=== PATIENT | male | born 1945 | race Caucasian/White ===

== ENCOUNTER → 2016-09-27 | Outpatient (CLI) | payer OTHER ==
[~2016-09-27] MED LIST: DABI150C PO; METO-596 PO; PRCSR30 PO; TELM80TA4 PO; TERA5CAP PO; ZCRT/40 PO
[2016-09-27 10:47] LABS: BASO % 0.4 %; BASO ABS # 0.02 K/uL (0-0.2); COMPLETE YES; EOS % 3.7 %; IG% 0.2 %; LYMPH % 22.3 %; LYMPH ABS # 1.26 K/uL (1.2-3.4); MEAN CORPUSCULAR HEMOGLOBIN 29.7 pg (25-34); MEAN CORPUSCULAR HGB CONC 34.2 g/dl (32-36); MEAN PLATELET VOLUME 9.6 fL (7.4-10.4); MONO % 8.3 %; NEUT % 65.1 %; PLATELET COUNT 191 K/uL (130-400); RED BLOOD COUNT 4.14 M/uL (4.7-6.1); WHITE BLOOD COUNT 5.64 K/uL (4.8-10.8)
[2016-09-27 10:57] LABS: ALT/SGPT 27 U/L (12-78); AST/SGOT 23 U/L (15-37); BLOOD UREA NITROGEN 20 mg/dl (7-18); BUN/CREATININE RATIO 17.1 (10-20); CALCIUM 8.8 mg/dl (8.5-10.1); CARBON DIOXIDE 29 mmol/L (21-32); CHLORIDE 99 mmol/L (98-107); GLUCOSE 136 mg/dl (70-99); POTASSIUM 3.9 mmol/L (3.5-5.1); SODIUM 137 mmol/L (136-145)
[2016-09-27 11:08] LABS: ALB/GLOB RATIO 1.3 (0.9-2); ALKALINE PHOSPHATASE 67 U/L (45-117); CHOLESTEROL 105 mg/dl (0-200); CHOLESTEROL/HDL RATIO 2.1; ESTIMATED AVERAGE GLUCOSE 117 mg/dl; HA1C FLAG Normal (Normal); HDL CHOLESTEROL 50 mg/dl; LDL CHOLESTEROL CALCULATED 25 mg/dl; TRIGLYCERIDES 151 mg/dl (0-150); VERY LOW DENSITY LIPOPROT CALC 30 mg/dl
== END | disposition home or self-care (01) ==
LOC: C.LAB1850 09:18
PROVIDERS: ATTEND Internal Medicine Geriatric Medicine
DX: I25.10 Atherosclerotic heart disease of native coronary artery without angina pectoris (principal); I10 Essential (primary) hypertension; E11.9 Type 2 diabetes mellitus without complications; E78.5 Hyperlipidemia, unspecified; D64.9 Anemia, unspecified; I49.5 Sick sinus syndrome; I48.2 Chronic atrial fibrillation

== ENCOUNTER → 2017-04-10 | Outpatient (CLI) | payer OTHER ==
[2017-04-10 10:22] LABS: BASO % 0.4 %; BASO ABS # 0.02 K/uL (0-0.2); COMPLETE YES; EOS % 3.1 %; HEMATOCRIT 36.4 % (42-52); LYMPH % 19.6 %; LYMPH ABS # 1.06 K/uL (1.2-3.4); MEAN CELL VOLUME 86.3 fL (80-100); MEAN CORPUSCULAR HEMOGLOBIN 28.2 pg (25-34); MEAN CORPUSCULAR HGB CONC 32.7 g/dl (32-36); MEAN PLATELET VOLUME 9.4 fL (7.4-10.4); NEUT % 67.9 %; PLATELET COUNT 210 K/uL (130-400); RED BLOOD COUNT 4.22 M/uL (4.7-6.1); WHITE BLOOD COUNT 5.42 K/uL (4.8-10.8)
[2017-04-10 11:03] LABS: BLOOD UREA NITROGEN 21 mg/dl (7-18); BUN/CREATININE RATIO 18.8 (10-20); CALCIUM 9.3 mg/dl (8.5-10.1); CARBON DIOXIDE 30 mmol/L (21-32); CHLORIDE 101 mmol/L (98-107); GLUCOSE 99 mg/dl (70-99); POTASSIUM 3.9 mmol/L (3.5-5.1); SODIUM 136 mmol/L (136-145)
[2017-04-10 11:08] LABS: FERRITIN 58.1 ng/ml (8.0-388.0)
[2017-04-10 11:36] LABS: ESTIMATED AVERAGE GLUCOSE 128 mg/dl; HA1C FLAG Normal (Normal)
--- NOTE | 2017-04-17 13:25 | CODING QUERY MEDICAL NECESSITY ---
SUPPORTING DIAGNOSIS NEEDED Dr. Bull, A supporting diagnosis is required for the test/procedure performed on this patient in order for us to be reimbursed by the patient's insurance. Please provide a supporting diagnosis for the following test/procedure listed below next to the test name along with your signature. *If there is no additional diagnosis for this patient that would support the following test/procedure please document that below next to the test/procedure. Test(s)/Procedure(s) that require a supporting diagnosis: * ([id number]) VITAMIN D ASSAY DIAGNOSIS: DATE OF SERVICE: 04/10/17 Provider Signature: Date: Thank you Luis F Caceres [facility] Information Management Once completed, please kindly fax back to [phone] For questions please call [phone]
== END | disposition home or self-care (01) ==
LOC: C.LAB1850 08:58
PROVIDERS: ATTEND Internal Medicine Geriatric Medicine
DX: I10 Essential (primary) hypertension (principal); E11.9 Type 2 diabetes mellitus without complications; D64.9 Anemia, unspecified; E53.8 Deficiency of other specified B group vitamins

== ENCOUNTER → 2017-09-26 | Outpatient (CLI) | payer OTHER ==
[~2017-09-26] MED LIST changes: -TELM80TA4 PO; +TELM80TA6 PO
[2017-09-26 12:13] LABS: BASO % 0.2 %; BASO ABS # 0.01 K/uL (0-0.2); EOS % 3.7 %; EOS ABS # 0.21 K/uL (0-0.5); HEMATOCRIT 36.1 % (42-52); HEMOGLOBIN 12.2 g/dL (14.0-18.0); IG# 0.01 K/uL (0.00-0.02); LYMPH % 24.7 %; LYMPH ABS # 1.41 K/uL (1.2-3.4); MEAN CELL VOLUME 86.8 fL (80-100); MEAN CORPUSCULAR HEMOGLOBIN 29.3 pg (25-34); MEAN CORPUSCULAR HGB CONC 33.8 g/dl (32-36); MEAN PLATELET VOLUME 9.7 fL (7.4-10.4); MONO % 9.1 %; MONO ABS # 0.52 K/uL (0.11-0.59); NEUT % 62.1 %; NEUT ABS # 3.54 K/uL (1.4-6.5); PLATELET COUNT 229 K/uL (130-400); RED CELL DISTRIBUTION WIDTH CV 13.3 % (11.5-14.5); RED CELL DISTRIBUTION WIDTH SD 42.4 fL (36.4-46.3)
[2017-09-26 12:29] LABS: HEMOGLOBIN A1C 6.1 % (4.5-5.6)
[2017-09-26 13:01] LABS: ALBUMIN 3.9 gm/dl (3.4-5.0); BLOOD UREA NITROGEN 26 mg/dl (7-18); CALCIUM 9.5 mg/dl (8.5-10.1); CARBON DIOXIDE 27 mmol/L (21-32); CREATININE 1.29 mg/dl (0.60-1.40); GLUCOSE 232 mg/dl (70-99); POTASSIUM 3.4 mmol/L (3.5-5.1); SODIUM 135 mmol/L (136-145)
[2017-09-26 13:12] LABS: ALKALINE PHOSPHATASE 82 U/L (45-117); ALT/SGPT 25 U/L (12-78); AST/SGOT 21 U/L (15-37); CHOLESTEROL 115 mg/dl (0-200); LDL CHOLESTEROL CALCULATED 34 mg/dl; TOTAL PROTEIN 7.6 gm/dl (6.4-8.2)
== END | disposition home or self-care (01) ==
LOC: C.LAB1850 11:25
PROVIDERS: ATTEND Internal Medicine Geriatric Medicine
DX: Z00.00 Encounter for general adult medical examination without abnormal findings (principal); I10 Essential (primary) hypertension; E11.9 Type 2 diabetes mellitus without complications; E78.5 Hyperlipidemia, unspecified; D64.9 Anemia, unspecified; Z79.01 Long term (current) use of anticoagulants; E53.8 Deficiency of other specified B group vitamins; I48.2 Chronic atrial fibrillation

== ENCOUNTER → 2018-04-26 | Outpatient (CLI) | payer OTHER ==
[2018-04-26 14:37] LABS: BASO % 0.4 %; BASO ABS # 0.02 K/uL (0-0.2); EOS % 1.6 %; EOS ABS # 0.09 K/uL (0-0.5); HEMATOCRIT 32.4 % (42-52); IG# 0.01 K/uL (0.00-0.02); LYMPH % 26.2 %; LYMPH ABS # 1.45 K/uL (1.2-3.4); MEAN CELL VOLUME 86.2 fL (80-100); MEAN CORPUSCULAR HEMOGLOBIN 29.3 pg (25-34); MEAN PLATELET VOLUME 9.8 fL (7.4-10.4); MONO % 9.6 %; MONO ABS # 0.53 K/uL (0.11-0.59); NEUT ABS # 3.43 K/uL (1.4-6.5); PLATELET COUNT 174 K/uL (130-400); RED CELL DISTRIBUTION WIDTH CV 13.5 % (11.5-14.5); RED CELL DISTRIBUTION WIDTH SD 42.6 fL (36.4-46.3); WHITE BLOOD COUNT 5.53 K/uL (4.8-10.8)
[2018-04-26 14:57] LABS: BLOOD UREA NITROGEN 21 mg/dl (7-18); CALCIUM 9.3 mg/dl (8.5-10.1); CARBON DIOXIDE 27 mmol/L (21-32); CREATININE 1.41 mg/dl (0.60-1.40); GLUCOSE 123 mg/dl (70-99); POTASSIUM 3.9 mmol/L (3.5-5.1); SODIUM 134 mmol/L (136-145)
== END | disposition home or self-care (01) ==
LOC: C.LAB1850 12:40
PROVIDERS: ATTEND Internal Medicine Geriatric Medicine
DX: I10 Essential (primary) hypertension (principal); E11.9 Type 2 diabetes mellitus without complications; D64.9 Anemia, unspecified

== ENCOUNTER 2023-11-28 20:57 | Observation (INO) ==
[2023-11-28 21:49] LABS: Basophils # (auto) 0.01 K/uL (0.00-0.20); Basophils % (auto) 0.1 %; Eosinophils # (auto) 0.02 K/uL (0.00-0.50); Eosinophils % (auto) 0.2 %; Hematocrit (blood only) 32.1 % (42.0-52.0); Hemoglobin 10.7 g/dl (14.0-18.0); Immature Granulocytes # (auto) 0.07 K/uL (0.01-0.20); Immature Granulocytes % (auto) 0.7 %; Lymphocytes # (auto) 1.14 K/uL (1.20-3.40); Lymphocytes % (auto) 11.7 %; Mean Corpuscular Hemoglobin 29.6 pg (25.0-34.0); Mean Corpuscular Hgb Conc 33.3 g/dL (32.0-36.0); Mean Corpuscular Volume 88.9 fL (80.0-100.0); Monocytes # (auto) 0.92 K/uL (0.11-0.59); Monocytes % (auto) 9.5 %; Neutrophils # (auto) 7.55 K/uL (1.40-6.50); Neutrophils % (auto) 77.8 %; Platelet Count 394 K/uL (130-400); RDW Coefficient of Variation 13.4 % (11.5-14.5); RDW Standard Deviation 44.1 fL (36.4-46.3); Red Blood Count 3.61 M/uL (4.70-6.10); White Blood Count 9.71 K/ul (4.8-10.8)
[2023-11-28 21:50] LABS: Albumin Level 3.9 gm/dl (3.4-5.0); Bilirubin,Total 0.9 mg/dl (0.2-1.0); Calcium 9.8 mg/dl (8.6-10.3); Potassium 3.3 mmol/L (3.5-5.1)
[2023-11-28 21:56] LABS: Albumin Globulin Ratio 0.8 (0.9-2); BUN Creatinine Ratio 23.1 (10-20); Creatinine Clr Calc Pharmacy 28.8 ml/min; Est GFR (African American) 34.6 ml/min; Est GFR (Non-African American) 29.8 ml/min; Globulin 4.9 gm/dl (2.5-4.0); Total Protein 8.8 gm/dl (6.0-8.3)
[2023-11-28 22:14] LABS: Influenza A virus by PCR Positive (Neg); Influenza B virus by PCR Negative (Neg); RSV by PCR Negative (Neg); SARS CoV2 RNA(COVID-19) Ceph NEGATIVE (Negative)
[2023-11-28] MEDS: SODIUM CHLORIDE 0.9% 500 ML IV ONE ×2 (22:20→23:18)
--- NOTE | 2023-11-28 22:23 | Emergency Department Note ---
Impression & Plan Pneumonia, Influenza A, Elevated troponin I level, Acute confusion, EZ (acute kidney injury) ED Provider Note NAME: CHARBEL SHEPARD AGE: 78 SEX: M : 1945 ARRIVES VIA: Walk-In INFORMANT: Patient, the patient's family ED PROVIDER(S): Giuseppe Orantes DO CHIEF COMPLAINT: Difficulty breathing HPI: The patient is a 78-year-old male who presented to the emergency department for an evaluation of difficulty breathing and cough. The patient's family states that he has been confused recently. The patient's significant other had similar symptoms a few weeks ago but she noticed that her symptoms resolved whereas her continued to have worsening symptoms. According to family he has been more confused and lethargic than usual. He has been having significant difficulty breathing especially with ambulation. There is been no hemoptysis. The patient has noticed no lower extremity swelling or leg pain. The patient was not seen by the family doctor prior to coming to the emergency department. ROS: See above HPI for pertinent positives & negatives. A total of 10 systems reviewed and were otherwise negative. PAST MEDICAL HISTORY: See Below PAST SURGICAL HISTORY: See Below FAMILY HISTORY: See Below SOCIAL HISTORY: See Below HOME MEDICATIONS: See Below ALLERGIES: See Below VITALS: See Below PHYSICAL EXAMINATION: GENERAL: Patient is awake alert in no acute distress patient is resting comfortably and showing no signs of anxiety EYES: The conjunctivae are clear. The pupils are round and reactive. EARS, NOSE, MOUTH AND THROAT: The nose is without any evidence of any deformity. NECK: The neck is nontender and supple. RESPIRATORY: Diminished breath sounds are noted both bases. There is mild tachypnea and conversational dyspnea. CARDIOVASCULAR: Tachycardic and irregular heart sounds were noted to auscultation. There is no definite murmur GASTROINTESTINAL: The abdomen is soft. Abdomen is nontender. MUSCULOSKELETAL/EXTREMITIES: There is no evidence of gross deformity full range of motion is noted in the hips and shoulders. SKIN: There is no obvious evidence of any rash. There is no significant pedal edema. NEUROLOGIC: Patient is awake alert and oriented x3. Strength was symmetric. MEDICAL DECISION MAKING: The patient is a 78-year-old male who presented to the emergency department for an evaluation of cough. The patient's had symptoms over the course of the last 2 weeks but he started getting worse this week. His family was concerned because he has been having decreased p.o. intake generalized weakness as well as some confusion. The patient's oxygen saturation was low but acceptable. He was positive for influenza in the emergency department but chest x-ray does appear to be consistent with a pulmonary infiltrate. I am concerned this may be a secondary infection after the pneumonia. The patient's oxygen saturation remained acceptable at rest but his blood pressure started to drop. He was treated with fluid boluses in the emergency department. He was also treated with IV antibiotics. I discussed the patient's laboratory and radiographic studies with him and his family members. I will also discussed this case with the on-call [facility]ist. Triage Nursing notes reviewed. Prior medical records reviewed Vital Signs: reviewed and remarkable for tachycardia. Differential diagnosis: Reactive airway disease, pneumonia, pneumothorax, COPD, CHF, infections, cardiac ischemia, pulmonary embolism, musculoskeletal, gastrointestinal, as well as other pathologies. ER treatment provided: See below Diagnostics interpreted by me: ECG: EKG was obtained in the emergency department. My interpretation is atrial fibrillation at 126 bpm. There were no obvious PVCs noted. Poor R wave progression was noted. This was compared to a tracing from May 08, 2023. No changes were noted Cardiac Monitoring: An order was placed for continuous cardiac monitoring. The monitor shows a rate of 113 bpm with atrial fibrillation. Laboratory studies: As stated above and show below. Imaging studies: See below. Radiographic imaging was reviewed by myself Consultation(s): I discussed this case with Dr. Lopez who is on-call for the [facility]. Past Med/Surg History Medical History Anemia Aortic valve sclerosis Arteriosclerotic coronary artery disease Dyslipidemia Elevated prostate specific antigen (PSA) 10/2022 Declines further evaluation, no further labs. Heart aneurysm Hypertension Permanent atrial fibrillation Sick sinus syndrome Vitamin B12 deficiency Surgical History Hx of CABG (~1989) Family History Unknown Coronary heart disease Sister Diabetes Brother Cardiac disorder Denies family history of Ovarian cancer Prostate cancer Breast cancer Lung cancer Colorectal cancer Social History Smoking Status: Former smoker Age Quit Using Tobacco: 43; Second Hand Exposure: No; Do You Dip or Chew Tobacco: No; Hx Alcohol Use: No Hx Substance Use: No Preferred Language: Korean Visual Impairment: Limited Hearing Ability: Normal marital status: Current Living Situation: Spouse current occupational status: retired How many Children do You have: 3 Feels Safe at Home: Yes Childhood Exposure to Second-Hand Smoke: No Diet: regular caffeine: Yes Dental Care, Regularly: No Physical Activity Frequency: Daily Seatbelt Use: always Sunscreen Use: No Assistive Devices: Glasses Allergies Allergies Allergy/AdvReac Type Severity Reaction Status Date / Time olmesartan [From Benicar] Allergy Severe TONGUE Verified 11/28/23 22:23 SWEKIANA ramipril Allergy Severe TONGUE Verified 11/28/23 22:23 RONALD valsartan [From Diovan] Allergy Severe TONGUE Verified 11/28/23 22:23 RONALD Home Meds Home Medications Medication Instructions Recorded Confirmed cyanocobalamin (vitamin B-12) 1,000 mcg PO DAILY #90 tabs 04/22/19 11/28/23 1,000 mcg tablet aspirin 81 mg tablet,delayed 81 mg PO DAILY 11/28/23 11/28/23 release multivitamin with minerals 1 tab PO DAILY 11/28/23 11/28/23 terazosin 5 mg capsule 5 mg PO DAILY 11/28/23 11/28/23 Previous Rx's Medication Instructions Recorded apixaban 5 mg tablet (Eliquis) 5 mg PO BID #180 tabs 01/08/23 hydrochlorothiazide 25 mg tablet 25 mg PO DAILY #90 tabs 03/28/23 atorvastatin 40 mg tablet 40 mg PO DAILY #90 tabs 04/25/23 metoprolol succinate 200 mg 200 mg PO DAILY #90 tabs 05/08/23 tablet,extended release 24 hr metformin 500 mg tablet 500 mg PO BID #180 tabs 09/03/23 losartan 100 mg tablet 100 mg PO DAILY #90 tabs 09/18/23 amlodipine 5 mg tablet 5 mg PO DAILY #90 tabs 11/14/23 Results & Data (ED) Vital Signs Vital Signs - 24 hr 11/28/23 21:05 11/28/23 21:32 11/28/23 21:37 Temperature 36.5 C Temperature Source Temporal Artery Scan Pulse Rate 135 H 113 H Pulse Rate [Brachial] 111 H Respiratory Rate 18 Respiratory Effort / Characteristics Non-Labored Spontaneous Respiratory Depth Normal Respiratory Pattern Blood Pressure 117/65 Blood Pressure [Right Arm] 131/73 Blood Pressure Mean 82 Blood Pressure Mean [Right Arm] 92 Blood Pressure Position [Right Arm] Semi-fowlers Pulse Oximetry 92 Oxygen Delivery Method Room Air Sepsis Recent Fever Within 48 Hours No Sepsis New/Unexplained Change in Mental Status No Sepsis Action Taken by Nursing No Action Required 11/28/23 23:00 Temperature Temperature Source Pulse Rate Pulse Rate [Brachial] 113 H Respiratory Rate 18 Respiratory Effort / Characteristics Non-Labored Spontaneous Respiratory Depth Normal Respiratory Pattern Regular Blood Pressure Blood Pressure [Right Arm] 115/68 Blood Pressure Mean Blood Pressure Mean [Right Arm] 83 Blood Pressure Position [Right Arm] Semi-fowlers Pulse Oximetry 94 Oxygen Delivery Method Room Air Sepsis Recent Fever Within 48 Hours Sepsis New/Unexplained Change in Mental Status Sepsis Action Taken by Intermediate Medications Current Medication List: was personally reviewed by me Laboratory Data Attestation: I reviewed the patient's lab results. 11/28/23 21:13 11/28/23 21:13 Lab Results 11/28/23 11/28/23 11/28/23 Range/Units 21:13 21:19 22:54 WBC 9.71 (4.8-10.8) K/ul RBC 3.61 L (4.70-6.10) M/uL Hgb 10.7 L (14.0-18.0) g/dl Hct 32.1 L (42.0-52.0) % MCV 88.9 (80.0-100.0) fL MCH 29.6 (25.0-34.0) pg MCHC 33.3 (32.0-36.0) g/dL RDW Std Deviation 44.1 (36.4-46.3) fL RDW Coeff of Abbey 13.4 (11.5-14.5) % Plt Count 394 (130-400) K/uL MPV 9.0 L (9.4-12.4) fL Immature Gran % (Auto) 0.7 % Neut % (Auto) 77.8 % Lymph % (Auto) 11.7 % Chambers % (Auto) 9.5 % Eos % (Auto) 0.2 % Baso % (Auto) 0.1 % Neut # (Auto) 7.55 H (1.40-6.50) K/uL Lymph # (Auto) 1.14 L (1.20-3.40) K/uL Chambers # (Auto) 0.92 H (0.11-0.59) K/uL Eos # (Auto) 0.02 (0.00-0.50) K/uL Baso # (Auto) 0.01 (0.00-0.20) K/uL Immature Gran # (Auto) 0.07 (0.01-0.20) K/uL VBG pH 7.43 H (7.36-7.41) VBG pCO2 38 (38-50) mmHg VBG pO2 23 mmHg VBG HCO3 25 mmol/L VBG O2 Saturation < 60.0 % VBG Base Excess 1.0 mEq/L Sodium 139 (136-145) mmol/L Potassium 3.3 L (3.5-5.1) mmol/L Chloride 102 (98-107) mmol/L Carbon Dioxide 23 (21-32) mmol/L Anion Gap 14 H (3-11) BUN 48 H (6-23) mg/dl Creatinine 2.08 H (0.6-1.4) mg/dl Est Cr Clr Drug Dosing 28.8 ml/min Est GFR ( Amer) 34.6 ml/min Est GFR (Non-Af Amer) 29.8 ml/min BUN/Creatinine Ratio 23.1 H (10-20) Glucose 149 H (70-99(Fasting)) mg/dl Lactate 2.5 H* (0.4-2.0) mmol/L Calcium 9.8 (8.6-10.3) mg/dl Magnesium 2.3 (1.7-2.4) mg/dl Total Bilirubin 0.9 (0.2-1.0) mg/dl AST 38 (13-39) U/L ALT 33 (7-52) U/L Alkaline Phosphatase 95 (34-104) U/L Troponin I High Sens 48.2 H (0-20) pg/ml C-Reactive Protein 21.12 H (0-0.5) mg/dl Total Protein 8.8 H (6.0-8.3) gm/dl Albumin 3.9 (3.4-5.0) gm/dl Globulin 4.9 H (2.5-4.0) gm/dl Albumin/Globulin Ratio 0.8 L (0.9-2) Procalcitonin 0.23 (0-0.5) ng/ml TSH 1.275 (0.300-4.500) uIu/ml SARS-CoV-2 (PCR) NEGATIVE (Negative) Influenza Type A (PCR) Positive A (Neg) Influenza Type B (PCR) Negative (Neg) RSV (RT-PCR) Negative (Neg) Administered Medications Discontinued Medications Sodium Chloride (Nss) 500 mls @ 999 mls/hr IV .Q31M ONE Stop: 11/28/23 22:44 Last Infusion: 11/28/23 22:58 Dose: Infused Documented By: Admin: 11/28/23 22:20 Dose: 999 mls/hr Documented By: KIRILL Ceftriaxone Sodium (Rocephin) 2,000 mg in 50 mls @ 100 mls/hr IV NOW STA Stop: 11/28/23 22:53 Last Admin: 11/28/23 23:15 Dose: 100 mls/hr Documented By: KIRILL Sodium Chloride (Nss) 500 mls @ 999 mls/hr IV .Q31M ONE Stop: 11/28/23 23:45 Last Admin: 11/28/23 23:18 Dose: 999 mls/hr Documented By: KIRILL Imaging Data Attestation: I personally reviewed and interpreted this imaging study as follows: My Impression: 1 view chest x-ray was obtained in the emergency department. My interpretation is postsurgical changes noted, cardiomegaly was noted, there is no free air, bilateral lower lobe infiltrates are noted right greater than left. This was compared to chest x-ray from February 11, 2007. The infiltrate is new compared to previous chest x-ray, final report pending. CT of the head was obtained in the emergency department. My interpretation is no intracranial hemorrhage or mass effect, final report below. Radiologist's Impression: Head CT 11/28/23 22:14 Exam(s): CT HEAD Without Contrast EXAM: CT Head Without Intravenous Contrast CLINICAL HISTORY: Reason for exam: AMS. TECHNIQUE: Axial computed tomography images of the head/brain without intravenous contrast. CTDI is 64.94 mGy and DLP is 1098.69 mGy-cm. Automated exposure control was utilized for the study. A dose lowering technique was utilized adhering to the principles of ALARA. COMPARISON: No relevant prior studies available. FINDINGS: No acute intracranial hemorrhage. No midline shift or mass effect. The territorial smith-white matter differentiation is maintained throughout. Age-related cerebral volume loss. Periventricular and subcortical white matter hypoattenuation, consistent with chronic microangiopathy. The visualized orbits appear grossly unremarkable. The calvarium is intact. The visualized paranasal sinuses and mastoid air cells are grossly clear. IMPRESSION: No acute intracranial hemorrhage, midline shift, or mass effect. Electronically signed by: Arash Levin MD 11/28/23 23:36 PM Discharge Plan Visit Data Chief Complaint: Illness Stated Complaint: NOT EATING/DRINKING, CONFUSION, DIZZY ED Provider: Giuseppe Orantes Discharge Problem: Pneumonia, Influenza A, Elevated troponin I level, Acute confusion, EZ (acute kidney injury) Patient Disposition: Being Evaluated by Hospitalist Forms Stand Alone Forms: My [facility] Prescriptions Prescriptions: No Action Eliquis 5 mg tablet 5 mg PO BID Qty: 180 3RF hydrochlorothiazide 25 mg tablet 25 mg PO DAILY Qty: 90 3RF atorvastatin 40 mg tablet 40 mg PO DAILY Qty: 90 3RF Rx Instructions: TAKE 1 TABLET BY MOUTH ONCE DAILY metformin 500 mg tablet 500 mg PO BID Qty: 180 3RF losartan 100 mg tablet 100 mg PO DAILY Qty: 90 3RF cyanocobalamin (vitamin B-12) 1,000 mcg tablet 1,000 mcg PO DAILY Qty: 90 metoprolol succinate 200 mg tablet extended release 24 hr 200 mg PO DAILY Qty: 90 3RF amlodipine 5 mg tablet 5 mg PO DAILY Qty: 90 3RF aspirin 81 mg Tablet,Delayed Release (Dr/Ec) 81 mg PO DAILY multivitamin with minerals Tablet 1 tab PO DAILY terazosin 5 mg capsule 5 mg PO DAILY Rx Instructions: TAKE 1 CAPSULE BY MOUTH DAILY Referrals Referrals: Demond Garcia DO [Primary Care Provider] - Discharge Problem: Pneumonia Qualifiers: Pneumonia type: due to unspecified organism Laterality: bilateral Lung location: lower lobe of lung Qualified Code(s): J18.9 - Pneumonia, unspecified organism
[2023-11-28 22:24] LABS: Magnesium 2.3 mg/dl (1.7-2.4)
[2023-11-28 22:44] LABS: C Reactive Protein 21.12 mg/dl (0-0.5)
[2023-11-28 22:51] LABS: Troponin I High Sensitivity 48.2 pg/ml (0-20)
[2023-11-28 23:00] LABS: Thyroid Stimulating Hormone 1.275 uIu/ml (0.300-4.500)
[2023-11-28 23:02] LABS: HCO3 VBG 25 mmol/L; Oxygen Saturation VBG < 60.0 %; PCO2 VBG 38 mmHg (38-50); PO2 VBG 23 mmHg; pH VBG 7.43 (7.36-7.41)
[2023-11-28] MEDS: cefTRIAXone SODIUM 2,000 MG/50 ML BAG IV STA (23:15)
--- NOTE | 2023-11-28 23:37 | CT Scan Report ---
Exam(s): CT HEAD Without Contrast EXAM: CT Head Without Intravenous Contrast CLINICAL HISTORY: Reason for exam: AMS. TECHNIQUE: Axial computed tomography images of the head/brain without intravenous contrast. CTDI is 64.94 mGy and DLP is 1098.69 mGy-cm. Automated exposure control was utilized for the study. A dose lowering technique was utilized adhering to the principles of ALARA. COMPARISON: No relevant prior studies available. FINDINGS: No acute intracranial hemorrhage. No midline shift or mass effect. The territorial smith-white matter differentiation is maintained throughout. Age-related cerebral volume loss. Periventricular and subcortical white matter hypoattenuation, consistent with chronic microangiopathy. The visualized orbits appear grossly unremarkable. The calvarium is intact. The visualized paranasal sinuses and mastoid air cells are grossly clear. IMPRESSION: No acute intracranial hemorrhage, midline shift, or mass effect. Electronically signed by: Arash Levin MD 11/28/23 23:36 PM
[2023-11-28] MEDS: SODIUM CHLORIDE 0.9% 1,000 ML IV ONE (23:58)
--- NOTE | 2023-11-29 00:45 | History & Physical Report ---
Date of Service November 29, 2023 Assessment & Plan (1) Influenza A: Plan: 78yo male with persistent cough productive for thick, yellow sputum as well as weakness, fatigue and decreased appetite. Patient found to be POSITIVE for influenza A. Suspect developing bacterial PNA as well. Symptoms have been ongoing x 2 weeks. Will not give Tamiflu -Admit to medical with telemetry -Maintain droplet precautions -Supportive care with Tylenol PRN, Robitussin -Gentle IVF with LR at 100ml/hr x 2L (2) Pneumonia: Plan: Suspect developing PNA given patient's symptoms - WBC count=9.7, baseline of appx 4. Elevated CRP. Procalcitonin is within normal limits -Follow cultures -Ceftriaxone and Azithromycin -Tylenol PRN -Albuterol PRN -Robitussin PRN -Flutter valve QID (3) Acute kidney injury superimposed on CKD: Plan: Patient with elevated BUN and Cr from baseline. Presently 48 and 2.08, respectively. Patient reports normal UOP -Gentle IVF with LR at 100mL/hr x 2L -Avoid nephrotoxic agents -Renal dosing where needed -Repeat chemistry in AM (4) Elevated troponin: Plan: Troponin elevated at 48.2. Patient denies chest pain. -Telemetry monitoring -Repeat with AM labs (5) Permanent atrial fibrillation: Plan: With elevated HR - presently 115bpm -Continue Metoprolol 200mg po daily -Continue Apixaban - will reduce dose to 2.5mg po BID for renal function (6) Diabetes mellitus type 2 in nonobese: Plan: Chronic. Well controlled on Metformin. Last [id number] on 11/14/23 -Hold Metformin -ISS -Goal blood sugar 110 - 140 (7) Hypertension: Plan: Chronic. Stable -Continue Metoprolol -Monitor (8) Dyslipidemia: Plan: Chronic. Stable -Continue Atorvastatin History of Present Illness Chief Complaint: productive cough, weakness, fatigue Primary Care Provider: Demond Garcia DO Kolby Brody is a 78yo male with history of CAD s/p CABG in 1989, HTN, HLP, AF and DM presenting with ongoing cough and worsening generalized weakness and fatigue. Patient developed URI symptoms 2 weeks ago with cough and congestion. His symptoms have been persistent for the last two weeks. He continues to cough, productive for thick white/yellow sputum, worsening weakness, fatigue, poor appetite and decreased PO intake. He does not have fever, no chest pain, palpitations, abdominal pain, nausea, vomiting or diarrhea. He denies edema, weight gain or urinary complaints. He has been taking Coricidin cough medicine at home with some relief. In the ER he is afebrile, HD stable, no respiratory distress ER Course: Ceftriaxone NSS x 2L Allergies Allergy/AdvReac Type Severity Reaction Status Date / Time olmesartan [From Benicar] Allergy Severe TONGUE Verified 11/28/23 22:23 SWELLS ramipril Allergy Severe TONGUE Verified 11/28/23 22:23 SWELLS valsartan [From Diovan] Allergy Severe TONGUE Verified 11/28/23 22:23 SWELLS Home Medications Medication Instructions Recorded Confirmed Type cyanocobalamin (vitamin B-12) 1,000 mcg PO DAILY #90 tabs 04/22/19 11/28/23 History 1,000 mcg tablet apixaban 5 mg tablet (Eliquis) 5 mg PO BID #180 tabs 01/08/23 11/28/23 Rx hydrochlorothiazide 25 mg tablet 25 mg PO DAILY #90 tabs 03/28/23 11/28/23 Rx atorvastatin 40 mg tablet 40 mg PO DAILY #90 tabs 04/25/23 11/28/23 Rx metoprolol succinate 200 mg 200 mg PO DAILY #90 tabs 05/08/23 11/28/23 Rx tablet,extended release 24 hr metformin 500 mg tablet 500 mg PO BID #180 tabs 09/03/23 11/28/23 Rx losartan 100 mg tablet 100 mg PO DAILY #90 tabs 09/18/23 11/28/23 Rx amlodipine 5 mg tablet 5 mg PO DAILY #90 tabs 11/14/23 11/28/23 Rx aspirin 81 mg tablet,delayed 81 mg PO DAILY 11/28/23 11/28/23 History release multivitamin with minerals 1 tab PO DAILY 11/28/23 11/28/23 History terazosin 5 mg capsule 5 mg PO DAILY 11/28/23 11/28/23 History Past Med/Surg History Medical History Anemia Aortic valve sclerosis Arteriosclerotic coronary artery disease Dyslipidemia Elevated prostate specific antigen (PSA) 10/2022 Declines further evaluation, no further labs. Heart aneurysm Hypertension Permanent atrial fibrillation Sick sinus syndrome Vitamin B12 deficiency Surgical History Hx of CABG (~1989) Family History Unknown Coronary heart disease Sister Diabetes Brother Cardiac disorder Denies family history of Ovarian cancer Prostate cancer Breast cancer Lung cancer Colorectal cancer Social History Smoking Status: Former smoker Age Quit Using Tobacco: 43; Second Hand Exposure: No; Do You Dip or Chew Tobacco: No; Hx Alcohol Use: No Hx Substance Use: No Preferred Language: Mac[place] Visual Impairment: Limited Hearing Ability: Normal marital status: Current Living Situation: Spouse current occupational status: retired How many Children do You have: 3 Feels Safe at Home: Yes Childhood Exposure to Second-Hand Smoke: No Diet: regular caffeine: Yes Dental Care, Regularly: No Physical Activity Frequency: Daily Seatbelt Use: always Sunscreen Use: No Assistive Devices: Glasses Review of Systems Review of Systems: All systems reviewed & are unremarkable except as noted in HPI & below Physical Exam Physical Exam: General: patient resting comfortably, NAD, non-toxic in appearance, AA&O x 4 Skin: warm, dry, intact, no rashes or lesions HEENT: NC/AT, PERRL, EOMI, anicteric sclera, conjunctiva without injection, external ear normal to inspection and nontender, nares patent, moist mucus membranes, dentition intact, no oropharyngeal lesions, neck supple, trachea midline, no LAD, no thyromegaly, no JVD Heart: +S1/S2, irregularly irregular, no m/r/g Lungs: equal air entry bilaterally, crackles in bilateral bases L > R, rhonchi with scattered end-expiratory wheezing Abd: +BS, soft, NT/ND, no masses/organomegaly/ascites Ext: warm, 2+ pulses in UE/LE bilaterally, no clubbing/cyanosis or edema Neuro: nonfocal, patient AA&O x 4, speech intact, no facial droop, moving all extremities on command with equal strength 5/5 Results & Data Results & Data Vital Signs (Past 12 Hours) Vital Signs Temp Pulse Pulse Resp BP BP Pulse Ox 11/28/23 23:59 111 H 21 118/58 L 92 11/28/23 23:00 113 H 18 115/68 94 11/28/23 21:37 111 H 131/73 11/28/23 21:32 113 H 11/28/23 21:05 36.5 C 135 H 18 117/65 92 O2 Del Method 11/28/23 23:59 Room Air 11/28/23 23:00 Room Air 11/28/23 21:37 11/28/23 21:32 11/28/23 21:05 Room Air Laboratory Results Laboratory Results WBC 9.71 K/ul (4.8-10.8) 11/28/23 21:13 RBC 3.61 M/uL (4.70-6.10) L 11/28/23 21:13 Hgb 10.7 g/dl (14.0-18.0) L 11/28/23 21:13 Hct 32.1 % (42.0-52.0) L 11/28/23 21:13 MCV 88.9 fL (80.0-100.0) 11/28/23 21:13 MCH 29.6 pg (25.0-34.0) 11/28/23 21:13 MCHC 33.3 g/dL (32.0-36.0) 11/28/23 21:13 RDW Std Deviation 44.1 fL (36.4-46.3) 11/28/23 21:13 RDW Coeff of [place] 13.4 % (11.5-14.5) 11/28/23 21:13 Plt Count 394 K/uL (130-400) 11/28/23 21:13 MPV 9.0 fL (9.4-12.4) L 11/28/23 21:13 Immature Gran % (Auto) 0.7 % 11/28/23 21:13 Neut % (Auto) 77.8 % 11/28/23 21:13 Lymph % (Auto) 11.7 % 11/28/23 21:13 [place] % (Auto) 9.5 % 11/28/23 21:13 Eos % (Auto) 0.2 % 11/28/23 21:13 Baso % (Auto) 0.1 % 11/28/23 21:13 Neut # (Auto) 7.55 K/uL (1.40-6.50) H 11/28/23 21:13 Lymph # (Auto) 1.14 K/uL (1.20-3.40) L 11/28/23 21:13 [place] # (Auto) 0.92 K/uL (0.11-0.59) H 11/28/23 21:13 Eos # (Auto) 0.02 K/uL (0.00-0.50) 11/28/23 21:13 Baso # (Auto) 0.01 K/uL (0.00-0.20) 11/28/23 21:13 Immature Gran # (Auto) 0.07 K/uL (0.01-0.20) 11/28/23 21:13 VBG pH 7.43 (7.36-7.41) H 11/28/23 22:54 VBG pCO2 38 mmHg (38-50) 11/28/23 22:54 VBG pO2 23 mmHg 11/28/23 22:54 VBG HCO3 25 mmol/L 11/28/23 22:54 VBG O2 Saturation < 60.0 % 11/28/23 22:54 VBG Base Excess 1.0 mEq/L 11/28/23 22:54 Sodium 139 mmol/L (136-145) 11/28/23 21:13 Potassium 3.3 mmol/L (3.5-5.1) L 11/28/23 21:13 Chloride 102 mmol/L (98-107) 11/28/23 21:13 Carbon Dioxide 23 mmol/L (21-32) 11/28/23 21:13 Anion Gap 14 (3-11) H 11/28/23 21:13 BUN 48 mg/dl (6-23) H 11/28/23 21:13 Creatinine 2.08 mg/dl (0.6-1.4) H 11/28/23 21:13 Est Cr Clr Drug Dosing 28.8 ml/min 11/28/23 21:13 Est GFR ( Amer) 34.6 ml/min 11/28/23 21:13 Est GFR (Non-Af Amer) 29.8 ml/min 11/28/23 21:13 BUN/Creatinine Ratio 23.1 (10-20) H 11/28/23 21:13 Glucose 149 mg/dl (70-99(Fasting)) H 11/28/23 21:13 Lactate 2.2 mmol/L (0.4-2.0) H* 11/29/23 00:35 Calcium 9.8 mg/dl (8.6-10.3) 11/28/23 21:13 Phosphorus 3.1 mg/dl (2.5-4.9) 11/28/23 22:54 Magnesium 2.3 mg/dl (1.7-2.4) 11/28/23 21:13 Total Bilirubin 0.9 mg/dl (0.2-1.0) 11/28/23 21:13 AST 38 U/L (13-39) 11/28/23 21:13 ALT 33 U/L (7-52) 11/28/23 21:13 Alkaline Phosphatase 95 U/L (34-104) 11/28/23 21:13 Troponin I High Sens 48.2 pg/ml (0-20) H 11/28/23 21:13 C-Reactive Protein 21.12 mg/dl (0-0.5) H 11/28/23 21:13 Total Protein 8.8 gm/dl (6.0-8.3) H 11/28/23 21:13 Albumin 3.9 gm/dl (3.4-5.0) 11/28/23 21:13 Globulin 4.9 gm/dl (2.5-4.0) H 11/28/23 21:13 Albumin/Globulin Ratio 0.8 (0.9-2) L 11/28/23 21:13 Procalcitonin 0.23 ng/ml (0-0.5) 11/28/23 21:13 TSH 1.275 uIu/ml (0.300-4.500) 11/28/23 21:13 SARS-CoV-2 (PCR) NEGATIVE (Negative) 11/28/23 21:19 Influenza Type A (PCR) Positive (Neg) A 11/28/23 21:19 Influenza Type B (PCR) Negative (Neg) 11/28/23 21:19 RSV (RT-PCR) Negative (Neg) 11/28/23 21:[address] 11/28/23 22:14 Exam(s): CT HEAD Without Contrast EXAM: CT Head Without Intravenous Contrast CLINICAL HISTORY: Reason for exam: AMS. TECHNIQUE: Axial computed tomography images of the head/brain without intravenous contrast. CTDI is 64.94 mGy and DLP is 1098.69 mGy-cm. Automated exposure control was utilized for the study. A dose lowering technique was utilized adhering to the principles of ALARA. COMPARISON: No relevant prior studies available. FINDINGS: No acute intracranial hemorrhage. No midline shift or mass effect. The territorial smith-white matter differentiation is maintained throughout. Age-related cerebral volume loss. Periventricular and subcortical white matter hypoattenuation, consistent with chronic microangiopathy. The visualized orbits appear grossly unremarkable. The calvarium is intact. The visualized paranasal sinuses and mastoid air cells are grossly clear. IMPRESSION: No acute intracranial hemorrhage, midline shift, or mass effect. Electronically signed by: Arash Levin MD 11/28/23 23:36 PM Diagnostic Findings CXR - per my interpretation - study shows s/p sternotomy, airspace disease RLL, LLL ECG Additional Comments: EKG with AF with RVR at 126bpm, no acute ischemic changes. Incomplete RBBB PG Care Time/CCT Total # of Minutes Spent Total Time Spent with Patient: Total time spent is greater than 50% in coordination of care (as documented) at patient's floor/unit and/or counseling patient: Coding Level of Care Code 46396 INT INP/OBS CARE 375MIN Diagnoses Influenza A J10.1 Pneumonia J18.9 Laterality: bilateral Lung location: lower lobe of lung Pneumonia type: due to unspecified organism Acute kidney injury superimposed on CKD N17.9; N18.9 Elevated troponin R79.89 Permanent atrial fibrillation I48.2 Diabetes mellitus type 2 in nonobese E11.9 Hypertension I10 Dyslipidemia E78.5 (2) Pneumonia Laterality: bilateral Lung location: lower lobe of lung Pneumonia type: due to unspecified organism Qualified Code(s): J18.9 - Pneumonia, unspecified organism
[2023-11-29] MEDS: APIXABAN 2.5 MG TAB PO STA (01:04)
[2023-11-29] MEDS ORDERED: ALBUTEROL 0.5% NEB SOLN 2.5 MG/0.5 ML VIAL NEB PRN (02:37)
[2023-11-29] MEDS ORDERED: DEXTROSE 50% 50 ML SYRINGE IV PRN (02:37)
[2023-11-29] MEDS ORDERED: ACETAMINOPHEN 325 MG TAB PO PRN (02:37)
[2023-11-29] MEDS ORDERED: GLUCOSE 40% GEL 15 GM TUBE PO PRN (02:37)
[2023-11-29] MEDS ORDERED: CARBOHYDRATES FOR HYPOGLYCEMIA PO PRN (02:37)
[2023-11-29] MEDS ORDERED: GLUCOSE 10 TAB/TUBE PO PRN (02:37)
[2023-11-29] MEDS ORDERED: GLUCAGON FOR INJ 1 MG VIAL SQ PRN (02:37)
[2023-11-29] MEDS: POTASSIUM CHLORIDE CRTAB 20 MEQ TABCR PO STA (02:58)
[2023-11-29] MEDS: LACTATED RINGER'S 1,000 ML IV SCH (02:58)
[2023-11-29] MEDS: AZITHROMYCIN 500 MG in DEXTROSE 5% 250 ML IV STA (02:58)
--- NOTE | 2023-11-29 07:00 | XRay Report ---
XR chest 1V portable HISTORY: 78 years-old Male weakness acute weakness COMPARISON: 02/11/2007 TECHNIQUE: AP view of the chest FINDINGS: Cardiomediastinal and hilar silhouettes are unchanged. Median sternotomy with CABG. Atherosclerosis o f the aorta. Chronic blunting of the lateral left costophrenic angle. Pulmonary vascular congestion. Mild patchy bibasilar predominant airspace opacities. The bones appear grossly intact. IMPRESSION: 1. Cardiomegaly with pulmonary vascular congestion. 2. Mild bibasilar patchy airspace opacities which are suspicious for pneumonia. Atelectasis could [place] ear similarly. ACT 112: Negative or not required by law. The above report was generated using voice recognition software. It may contain grammatical, syntax o r spelling errors. Electronically signed by: Scooter Centeno M.D. 11/29/2023 6:58 AM
[2023-11-29] MEDS: METOPROLOL SUCC 50MG EXT REL TAB PO SCH (07:45)
[2023-11-29] MEDS: APIXABAN 2.5 MG TAB PO SCH ×2 (07:45→22:01)
[2023-11-29] MEDS: guaiFENesin SUGAR FREE 100 MG/5 ML UDC PO PRN (07:45)
[2023-11-29] MEDS: ATORVASTATIN 40 MG TAB PO SCH (07:45)
[2023-11-29] MEDS: ASPIRIN 81 MG ECTAB PO SCH (07:45)
[2023-11-29] MEDS: TERAZOSIN HCL 5 MG CAP PO SCH (07:45)
[2023-11-29] MEDS: cefTRIAXone SODIUM 1,000 MG in DEXTROSE 5 % MINI-B 50 ML IV SCH (07:45)
[2023-11-29] MEDS ORDERED: HEPARIN SOD (PORCINE) 1000 UNIT/ML IV ONE (09:14)
[2023-11-29] MEDS ORDERED: STAT IV Infusion **Titration per Protocol STA (09:30)
[2023-11-29] MEDS: INSULIN ASPART PER UNIT CHARGE SC SCH (09:35)
[2023-11-29] MEDS: HEPARIN SODIUM/DEXTROSE 25,000 UNITS/500 ML BAG IV SCH (09:36)
[2023-11-29 10:04] LABS: Partial Thromboplastin Ratio 1.2; Partial Thromboplastin Time 33 Seconds (21-31)
[2023-11-29] MEDS: Heparin IV Adult Wt-Based Standard w/ INITIAL Bolus Protocol IV STA (10:05)
[2023-11-29] MEDS: SODIUM CHLORIDE 0.9% 500 ML IV SCH (10:28)
[2023-11-29] MEDS: dilTIAZem HCl 5 MG/ML 5 ML VIAL IV STA (10:41)
[2023-11-29] MEDS: AZITHROMYCIN 250 MG in DEXTROSE 5% 250 ML IV SCH (10:41)
[2023-11-29] MEDS: dilTIAZem HCL 125 MG in DEXTROSE 5% 100 ML IV SCH (10:41)
--- NOTE | 2023-11-29 11:33 | Cardiology Consultation ---
Date of Consultation November 29, 2023 Assessment & Plan (1) Elevated troponin: (2) CAD (coronary artery disease): (3) Hx of CABG: (4) Cardiomyopathy: (5) Permanent atrial fibrillation: (6) Hypertension: (7) Dyslipidemia: (8) Influenza A: Plan ASSESSMENT/PLAN: 1. Elevated troponin: He did not present with acute coronary syndrome. Troponin likely elevated due to demand ischemia with known underlying CAD and presenting with influenza A and possible pneumonia. No angina. No indication for urgent cardiac catheterization. 2. Cardiomyopathy: LV systolic function is now moderately reduced in the setting of elevated heart rate and influenza A. No angina. Appears euvolemic. Continue metoprolol succinate. ARB currently held presumably due to worsened renal function but would monitor closely and resume losartan. Does not meet criteria for ICD for primary prevention. Recommend repeating echo in the outpatient setting to see if any improvement once recovered from viral infection. If not, could consider further evaluation if deemed appropriate. 3. Atrial fibrillation: Permanent. Heart rates have been elevated. Will resume home dose of metoprolol succinate 200 mg. Elevated heart rates may be related to the fact that he is currently ill with influenza A and possible pneumonia. Would maintain current regimen for now. Would try to avoid diltiazem given reduced LV systolic function. If necessary, could use digoxin cautiously in the setting of impaired renal function but for now, continue beta- claude. Continue anticoagulation for stroke risk reduction. 4. CAD s/p CABG x 2: No angina. Continue beta-claude. Continue high intensity statin therapy. 5. Hypertension: Blood pressure currently well-controlled. Was transiently hypotensive earlier this morning. 6. Dyslipidemia: Continue high intensity statin therapy. 7. Influenza A/pneumonia: As per primary service. 8. Disposition: Please call with further questions or concerns. On discharge, continue to follow with primary transportation engineering technician, Dr. Ocasio. Patient care communicated with primary hospitalist, Dr. Sorenson. Thank you for allowing me to participate in the care of your patient. Please call for any other questions or concerns. Sincerely, Oscar Savage M.D. History of Present Illness Reason for Consultation: Elevated troponin Requesting Physician: Teresa Sorenson MD Attending Physician: Teresa Sorenson MD History of Present Illness Mr. Brody is a very pleasant 78-year-old gentleman with a history significant for multivessel CAD s/p CABG x 2 ([facility] 1989), permanent atrial fibrillation (dx 2011), CKD, hypertension, and dyslipidemia. His primary transportation engineering technician is Dr. Ocasio. He was admitted on 11/29/2023 with influenza A infection. He has been experiencing upper respiratory symptoms for the past 2 weeks. His had the flu recently but has since recovered. He has had increased cough with thick yellow/white sputum and worsening weakness and fatigue with poor appetite. He denies documented fever. He denies chest pain, syncope, near syncope, palpitations, edema. He has had some shortness of breath with his current URI but prior to that, denies shortness of breath. He does not exercise but remains active and has not been experiencing exertional dyspnea or chest discomfort prior to his illness. In regards to his CAD, he has not had a cardiac catheterization since his CABG that he can recall. He has had the following studies/procedures: 1. CABG x 2 [facility] 1989. 2. Echo 03/29/2016: Normal LV size. EF 60 to 65%. Hypokinetic inferior base. Moderate left atrial dilation. Sclerotic aortic valve. 3. Echo 05/01/2023: LVEF 45 to 50%. Severe left and moderate right atrial dilation. Sclerotic aortic valve. Mild MR. 4. Echo 11/29/2023: Top normal LV size. EF 35 to 40%. Severe hypokinesis of the septum, anteroseptum, and apex. Akinesis of the basal inferior wall. Severe left atrial dilation. Sclerotic aortic valve. Mild MR. Moderate TR. RVSP 47. Review of systems: As above. Review of systems otherwise negative/unremarkable. Family history: Positive for CAD. Social history: Quit smoking in 1989. No alcohol or drug abuse. Lives at home with his and daughter. 3 children (2 sons and 1 daughter). His , daughter, and granddaughter were present at the bedside. Allergies Allergy/AdvReac Type Severity Reaction Status Date / Time olmesartan [From Benicar] Allergy Severe TONGUE Verified 11/28/23 22:23 SWELLS ramipril Allergy Severe TONGUE Verified 11/28/23 22:23 SWELLS valsartan [From Diovan] Allergy Severe TONGUE Verified 11/28/23 22:23 SWELLS Home Medications Medication Instructions Recorded Confirmed Type cyanocobalamin (vitamin B-12) 1,000 mcg PO DAILY #90 tabs 04/22/19 11/28/23 History 1,000 mcg tablet apixaban 5 mg tablet (Eliquis) 5 mg PO BID #180 tabs 01/08/23 11/28/23 Rx hydrochlorothiazide 25 mg tablet 25 mg PO DAILY #90 tabs 03/28/23 11/28/23 Rx atorvastatin 40 mg tablet 40 mg PO DAILY #90 tabs 04/25/23 11/28/23 Rx metoprolol succinate 200 mg 200 mg PO DAILY #90 tabs 05/08/23 11/28/23 Rx tablet,extended release 24 hr metformin 500 mg tablet 500 mg PO BID #180 tabs 09/03/23 11/28/23 Rx losartan 100 mg tablet 100 mg PO DAILY #90 tabs 09/18/23 11/28/23 Rx amlodipine 5 mg tablet 5 mg PO DAILY #90 tabs 11/14/23 11/28/23 Rx aspirin 81 mg tablet,delayed 81 mg PO DAILY 11/28/23 11/28/23 History release multivitamin with minerals 1 tab PO DAILY 11/28/23 11/28/23 History terazosin 5 mg capsule 5 mg PO DAILY 11/28/23 11/28/23 History Patient History Medical History (Updated 11/29/23 @ 14:52 by Shawn Savage MD) Anemia Aortic valve sclerosis Arteriosclerotic coronary artery disease Dyslipidemia Elevated prostate specific antigen (PSA) 10/2022 Declines further evaluation, no further labs. Heart aneurysm Hypertension Permanent atrial fibrillation Sick sinus syndrome Vitamin B12 deficiency Surgical History (Updated 11/29/23 @ 14:52 by Shawn Savage MD) Hx of CABG (~1989) Family History Unknown Coronary heart disease Sister Diabetes Brother Cardiac disorder Denies family history of Ovarian cancer Prostate cancer Breast cancer Lung cancer Colorectal cancer Social History Smoking Status: Former smoker Age Quit Using Tobacco: 43; Second Hand Exposure: No; Do You Dip or Chew Tobacco: No; Hx Alcohol Use: No Hx Substance Use: No Preferred Language: Lithuanian Visual Impairment: Limited Hearing Ability: Normal Rater Associate Required: No Beliefs That Will Affect Care: None marital status: Current Living Situation: Spouse and Family current occupational status: retired How many Children do You have: 3 Other Information That Helps Us Care for You: No Feels Safe at Home: Yes Safety Concerns: Feels Safe At This Time Childhood Exposure to Second-Hand Smoke: No Diet: regular caffeine: Yes Dental Care, Regularly: No Physical Activity Frequency: Daily Seatbelt Use: always Sunscreen Use: No Assistive Devices: Glasses Physical Exam Physical Exam: Gen.: No acute distress. Alert. HEENT: Anicteric sclera. Neck: No JVD. Cardiac: No ventricular heave. Irregularly irregular. Normal S1-S2. 2/6 systolic murmur best heard at the apex. Pulmonary: Coarse sounds at the right lung base, otherwise clear to auscultation bilaterally. Abdomen: Soft, nontender, nondistended, with normoactive bowel sounds. No bruits noted. Extremities: 2+ radial pulses bilaterally. 2+ posterior tibialis pulses bilaterally. No edema or cyanosis. Psychiatric: Affect appears appropriate. Results & Data Vital Signs (Past 12 Hours) Vital Signs Temp Pulse Pulse Resp BP BP Pulse Ox 11/29/23 11:03 101 H 18 99/57 L 92 11/29/23 10:24 95 H 20 95/64 L 98 11/29/23 09:56 110 H 22 95/73 L 96 11/29/23 07:30 36.5 C 121 H 26 H 114/60 94 11/29/23 07:30 11/29/23 07:25 115 H 11/29/23 05:00 99 H 26 H 111/73 89 L 11/29/23 04:00 103 H 24 118/65 89 L 11/29/23 03:00 115 H 29 H 119/76 92 11/29/23 01:28 110 H 11/29/23 01:00 105 H 20 112/70 92 11/28/23 23:59 111 H 21 118/58 L 92 O2 Del Method 11/29/23 11:03 11/29/23 10:24 11/29/23 09:56 11/29/23 07:30 Room Air 11/29/23 07:30 Room Air 11/29/23 07:25 11/29/23 05:00 11/29/23 04:00 11/29/23 03:00 11/29/23 01:28 11/29/23 01:00 Room Air 11/28/23 23:59 Room Air Laboratory Results Laboratory Results - last 24 hr 11/28/23 11/28/23 11/28/23 21:13 21:19 22:54 WBC 9.71 RBC 3.61 L Hgb 10.7 L Hct 32.1 L MCV 88.9 MCH 29.6 MCHC 33.3 RDW Std Deviation 44.1 RDW Coeff of Abbey 13.4 Plt Count 394 MPV 9.0 L Immature Gran % (Auto) 0.7 Neut % (Auto) 77.8 Lymph % (Auto) 11.7 [place] % (Auto) 9.5 Eos % (Auto) 0.2 Baso % (Auto) 0.1 Neut # (Auto) 7.55 H Lymph # (Auto) 1.14 L [place] # (Auto) 0.92 H Eos # (Auto) 0.02 Baso # (Auto) 0.01 Immature Gran # (Auto) 0.07 APTT PTT Ratio Heparin Anti-Xa, LM Wt VBG pH 7.43 H VBG pCO2 38 VBG pO2 23 VBG HCO3 25 VBG O2 Saturation < 60.0 VBG Base Excess 1.0 Sodium 139 Potassium 3.3 L Chloride 102 Carbon Dioxide 23 Anion Gap 14 H BUN 48 H Creatinine 2.08 H Est Cr Clr Drug Dosing 28.8 Est GFR ( Amer) 34.6 Est GFR (Non-Af Amer) 29.8 BUN/Creatinine Ratio 23.1 H Glucose 149 H POC Glucose Lactate 2.5 H* Calcium 9.8 Phosphorus 3.1 Magnesium 2.3 Total Bilirubin 0.9 AST 38 ALT 33 Alkaline Phosphatase 95 Troponin I High Sens 48.2 H C-Reactive Protein 21.12 H Total Protein 8.8 H Albumin 3.9 Globulin 4.9 H Albumin/Globulin Ratio 0.8 L Procalcitonin 0.23 TSH 1.275 SARS-CoV-2 (PCR) NEGATIVE Influenza Type A (PCR) Positive A Influenza Type B (PCR) Negative RSV (RT-PCR) Negative 11/29/23 11/29/23 11/29/23 00:35 06:33 07:37 WBC RBC Hgb Hct MCV MCH MCHC RDW Std Deviation RDW Coeff of [place] Plt Count MPV Immature Gran % (Auto) Neut % (Auto) Lymph % (Auto) [place] % (Auto) Eos % (Auto) Baso % (Auto) Neut # (Auto) Lymph # (Auto) [place] # (Auto) Eos # (Auto) Baso # (Auto) Immature Gran # (Auto) APTT PTT Ratio Heparin Anti-Xa, LM Wt VBG pH VBG pCO2 VBG pO2 VBG HCO3 VBG O2 Saturation VBG Base Excess Sodium Potassium Chloride Carbon Dioxide Anion Gap BUN Creatinine Est Cr Clr Drug Dosing Est GFR ( Amer) Est GFR (Non-Af Amer) BUN/Creatinine Ratio Glucose POC Glucose 160 H Lactate 2.2 H* Calcium Phosphorus Magnesium Total Bilirubin AST ALT Alkaline Phosphatase Troponin I High Sens 209.7 H* D C-Reactive Protein Total Protein Albumin Globulin Albumin/Globulin Ratio Procalcitonin TSH SARS-CoV-2 (PCR) Influenza Type A (PCR) Influenza Type B (PCR) RSV (RT-PCR) 11/29/23 11/29/23 09:11 11:22 WBC RBC Hgb Hct MCV MCH MCHC RDW Std Deviation RDW Coeff of [place] Plt Count MPV Immature Gran % (Auto) Neut % (Auto) Lymph % (Auto) [place] % (Auto) Eos % (Auto) Baso % (Auto) Neut # (Auto) Lymph # (Auto) [place] # (Auto) Eos # (Auto) Baso # (Auto) Immature Gran # (Auto) APTT 33 H PTT Ratio 1.2 Heparin Anti-Xa, LM Wt Cancelled VBG pH VBG pCO2 VBG pO2 VBG HCO3 VBG O2 Saturation VBG Base Excess Sodium Potassium Chloride Carbon Dioxide Anion Gap BUN Creatinine Est Cr Clr Drug Dosing Est GFR ( Amer) Est GFR (Non-Af Amer) BUN/Creatinine Ratio Glucose POC Glucose 137 H Lactate Calcium Phosphorus Magnesium Total Bilirubin AST ALT Alkaline Phosphatase Troponin I High Sens C-Reactive Protein Total Protein Albumin Globulin Albumin/Globulin Ratio Procalcitonin TSH SARS-CoV-2 (PCR) Influenza Type A (PCR) Influenza Type B (PCR) RSV (RT-PCR) Diagnostic Findings Chest x-ray personally reviewed from 11/28/2023: Sternotomy wires noted. Small left pleural effusion. Mild patchy bibasilar airspace opacities per radiology, suspicious for pneumonia. Telemetry personally reviewed: A-fib with elevated heart rates at times. No significant pause. ECG personally reviewed 11/28/2023: A-fib with RVR 126 bpm. Incomplete RBBB. Possible septal infarct. Lateral T wave inversion. Labs reviewed from 11/28/2023, demonstrating stable anemia, abnormal renal function, slightly above baseline, mild hypokalemia, normal TSH, normal transaminase levels. Echo report reviewed as noted above in HPI. Head CT 11/28/2023: No acute intracranial hemorrhage. Medications Administered Current Inpatient Medications Acetaminophen (Acetaminophen 325 Mg Tab) 650 mg PO Q4H PRN PRN Reason: Pain or Fever Stop: 12/29/23 02:36 Albuterol (Albuterol 0.5% Neb Soln 2.5 Mg/0.5 Ml Vial) 2.5 mg NEB Q2H PRN; Protocol PRN Reason: SOB/Wheeze Stop: 12/29/23 02:36 Aspirin (Aspirin 81 Mg Ectab) 81 mg PO DAILY AMANDEEP Stop: 12/29/23 08:59 Last Admin: 11/29/23 07:45 Dose: 81 mg Atorvastatin Calcium (Atorvastatin 40 Mg Tab) 40 mg PO DAILY AMANDEEP Stop: 12/29/23 08:59 Last Admin: 11/29/23 07:45 Dose: 40 mg Dextrose (Dextrose 50% 50 Ml Syringe) 25 - 50 ml IV UD PRN; Protocol PRN Reason: Hypoglycemia Protocol Stop: 12/29/23 02:36 Glucagon (Glucagon For Inj 1 Mg Vial) 1 mg SQ UD PRN; Protocol PRN Reason: Hypoglycemia Protocol Stop: 12/29/23 02:36 Glucose (Glucose 10 Tab/Tube) 4 - 8 tab PO UD PRN; Protocol PRN Reason: Hypoglycemia Treatment Stop: 12/29/23 02:36 Glucose (Glucose 40% Gel 15 Gm Tube) 15 - 30 gm PO UD PRN; Protocol PRN Reason: Hypoglycemia Protocol Stop: 12/29/23 02:36 Guaifenesin (Guaifenesin Sugar Free 100 Mg/5 Ml Udc) 100 mg PO Q6H PRN PRN Reason: Cough Stop: 12/29/23 02:36 Last Admin: 11/29/23 07:45 Dose: 100 mg Ceftriaxone Sodium 1,000 mg/ (Dextrose) 50 mls @ 100 mls/hr IV Q24H AMANDEEP; Protocol Stop: 12/06/23 08:59 Last Infusion: 11/29/23 08:15 Dose: Infused Azithromycin 250 mg/ Dextrose 252.5 mls @ 125 mls/hr IV Q24H [facility] Stop: 12/06/23 09:59 Last Infusion: 11/29/23 12:45 Dose: Infused Heparin Sodium/Dextrose (Heparin Sodium/Dextrose) 25,000 units in 500 mls @ 26 mls/hr IV .[id number] [facility]; Protocol Stop: 12/29/23 09:14 Last Admin: 11/29/23 09:36 Dose: 1,300 units/hr, 26 mls/hr Insulin Aspart (Insulin Aspart Per Unit Charge) 0 units SC ACHS [facility] Stop: 12/29/23 07:29 Last Admin: 11/29/23 11:23 Dose: Not Given Miscellaneous (Carbohydrates For Hypoglycemia ) 15 - 30 gm PO UD PRN PRN Reason: Hypoglycemia Protocol Stop: 12/29/23 02:36 Terazosin HCl (Terazosin Hcl 5 Mg Cap) 5 mg PO DAILY [facility] Stop: 12/29/23 08:59 Last Admin: 11/29/23 07:45 Dose: 5 mg PG Care Time/CCT Total # of Minutes Spent Total Time Spent with Patient: Total time spent is greater than 50% in coordination of care (as documented) at patient's floor/unit and/or counseling patient: Coding Level of Care Code 88034 INT INP/OBS CARE 3/75MIN Diagnoses Elevated troponin R79.89 CAD (coronary artery disease) I25.10 Hx of CABG Z95.1 Cardiomyopathy I42.9 Permanent atrial fibrillation I48.2 Hypertension I10 Dyslipidemia E78.5 Influenza A J10.1
--- NOTE | 2023-11-29 12:42 | XCELERA ---
[id number]
[2023-11-29 17:09] LABS: ANTI-Xa, UFH(UnfractionatedHep > 1.50 IU/ml (0.3-0.7)
--- NOTE | 2023-11-29 18:29 | Hospitalist Progress Note ---
Date of Service November 29, 2023 Assessment & Plan (1) Influenza A: Plan: 78yo male with persistent cough productive for thick, yellow sputum as well as weakness, fatigue and decreased appetite. Patient found to be POSITIVE for influenza A. Suspect developing bacterial PNA as well. Symptoms have been ongoing x 2 weeks. Will not give Tamiflu -Admit to medical with telemetry -Maintain droplet precautions -Supportive care with Tylenol PRN, Robitussin (2) Pneumonia: Plan: Suspect developing PNA given patient's symptoms - WBC count=9.7, baseline of appx 4. Elevated CRP. Procalcitonin is within normal limits -Follow cultures -Ceftriaxone and Azithromycin -Tylenol PRN -Albuterol PRN -Robitussin PRN -Flutter valve QID (3) Acute kidney injury superimposed on CKD: Plan: Patient with elevated BUN and Cr from baseline. Presently 48 and 2.08, respectively. Patient reports normal UOP -Gentle IVF with LR at 100mL/hr x 2L -Avoid nephrotoxic agents -Renal dosing where needed -Repeat chemistry in AM (4) Elevated troponin: Plan: Troponin elevated at 48.2, repeat trop 200 -Telemetry monitoring -Repeat with AM labs IV Heparin ECHO EF 35-40 % ischemic cardiomyopathy ? needs cardiac work up as outpatient continue current treatment (5) Permanent atrial fibrillation: Plan: With elevated HR - presently 115bpm -Continue Metoprolol 200mg po daily -Continue Apixaban - will reduce dose to 2.5mg po BID for renal function (6) Diabetes mellitus type 2 in nonobese: Plan: Chronic. Well controlled on Metformin. Last [id number]=8.9 on 11/14/23 -Hold Metformin -ISS -Goal blood sugar 110 - 140 (7) Hypertension: Plan: Chronic. Stable -Continue Metoprolol -Monitor (8) Dyslipidemia: Plan: Chronic. Stable -Continue Atorvastatin Admission and Anticipated Discharge Date Admission Date: November 29, 2023 Subjective reports feeling better, less SOB, no fever, no chills, denies CP, trop is elevated in 200s Review of Systems Review of Systems: All systems reviewed & are unremarkable except as noted in Subjective Physical Exam Physical Exam: head atraumatic, normocephalic neck supple , no JVD, chest decreased breath sounds b/l heart irregularly irregular abdomen soft, nt, nd, BS present extremities no clubbing, no cyanosis neuro alert, awake, oriented times 3 Results & Data Results & Data Vital Signs (Past 12 Hours) Vital Signs Temp Pulse Pulse Resp BP BP Pulse Ox 11/29/23 14:46 89 20 114/82 96 11/29/23 12:00 108 H 20 110/60 95 11/29/23 11:03 101 H 18 99/57 L 92 11/29/23 10:24 95 H 20 95/64 L 98 11/29/23 09:56 110 H 22 95/73 L 96 11/29/23 07:30 36.5 C 121 H 26 H 114/60 94 11/29/23 07:30 11/29/23 07:25 115 H O2 Del Method 11/29/23 14:46 11/29/23 12:00 11/29/23 11:03 11/29/23 10:24 11/29/23 09:56 11/29/23 07:30 Room Air 11/29/23 07:30 Room Air 11/29/23 07:25 PG Care Time/CCT Total # of Minutes Spent Total Time Spent with Patient: Total time spent is greater than 50% in coordination of care (as documented) at patient's floor/unit and/or counseling patient: Coding Level of Care Code 82233 SUB INP/OBS CARE 235MIN Diagnoses Influenza A J10.1 Pneumonia J18.9 Laterality: bilateral Lung location: lower lobe of lung Pneumonia type: due to unspecified organism Acute kidney injury superimposed on CKD N17.9; N18.9 Elevated troponin R79.89 Permanent atrial fibrillation I48.2 Diabetes mellitus type 2 in nonobese E11.9 Hypertension I10 Dyslipidemia E78.5 (2) Pneumonia Laterality: bilateral Lung location: lower lobe of lung Pneumonia type: due to unspecified organism Qualified Code(s): J18.9 - Pneumonia, unspecified organism
[2023-11-29 18:37] LABS: ANTI-Xa, UFH(UnfractionatedHep > 1.50 IU/ml (0.3-0.7)
[2023-11-29 19:59] LABS: ANTI-Xa, UFH(UnfractionatedHep > 1.50 IU/ml (0.3-0.7)
[2023-11-29 20:55] LABS: ANTI-Xa, UFH(UnfractionatedHep > 1.50 IU/ml (0.3-0.7)
[2023-11-30 07:55] LABS: Basophils # (auto) 0.01 K/uL (0.00-0.20); Basophils % (auto) 0.1 %; Eosinophils # (auto) 0.04 K/uL (0.00-0.50); Eosinophils % (auto) 0.6 %; Hematocrit (blood only) 28.6 % (42.0-52.0); Hemoglobin 9.4 g/dl (14.0-18.0); Immature Granulocytes # (auto) 0.05 K/uL (0.01-0.20); Immature Granulocytes % (auto) 0.7 %; Lymphocytes # (auto) 0.83 K/uL (1.20-3.40); Lymphocytes % (auto) 12.2 %; Mean Corpuscular Hemoglobin 29.3 pg (25.0-34.0); Mean Corpuscular Hgb Conc 32.9 g/dL (32.0-36.0); Mean Corpuscular Volume 89.1 fL (80.0-100.0); Mean Platelet Volume 9.1 fL (9.4-12.4); Monocytes # (auto) 0.74 K/uL (0.11-0.59); Monocytes % (auto) 10.9 %; Neutrophils # (auto) 5.12 K/uL (1.40-6.50); Neutrophils % (auto) 75.5 %; Platelet Count 338 K/uL (130-400); RDW Coefficient of Variation 13.4 % (11.5-14.5); RDW Standard Deviation 44.3 fL (36.4-46.3); Red Blood Count 3.21 M/uL (4.70-6.10); White Blood Count 6.79 K/ul (4.8-10.8)
[2023-11-30 08:13] LABS: BUN Creatinine Ratio 20.9 (10-20); Creatinine Clr Calc Pharmacy 39.1 ml/min; Est GFR (African American) 50.1 ml/min; Est GFR (Non-African American) 43.2 ml/min; Magnesium 2.1 mg/dl (1.7-2.4); Potassium 4.1 mmol/L (3.5-5.1)
[2023-11-30] MEDS: METOPROLOL SUCC 50MG EXT REL TAB PO SCH (09:39)
--- NOTE | 2023-11-30 12:01 | Discharge Summary ---
Date of Service November 30, 2023 Admission HPI Per Admitting Provider Kolby Brody is a 78yo male with history of CAD s/p CABG in 1989, HTN, HLP, AF and DM presenting with ongoing cough and worsening generalized weakness and fatigue. Patient developed URI symptoms 2 weeks ago with cough and congestion. His symptoms have been persistent for the last two weeks. He continues to cough, productive for thick white/yellow sputum, worsening weakness, fatigue, poor appetite and decreased PO intake. He does not have fever, no chest pain, palpitations, abdominal pain, nausea, vomiting or diarrhea. He denies edema, weight gain or urinary complaints. He has been taking Coricidin cough medicine at home with some relief. In the ER he is afebrile, HD stable, no respiratory distress ER Course: Ceftriaxone NSS x 2L Principal Diagnosis pneumonia, EZ Discharge Exam head atraumatic, normocephalic neck supple , no JVD, chest decreased breath sounds b/l heart irregularly irregular abdomen soft, nt, nd, BS present extremities no clubbing, no cyanosis neuro alert, awake, oriented times 3 Discharge Data Allergies Allergy/AdvReac Type Severity Reaction Status Date / Time olmesartan [From Benicar] Allergy Severe TONGUE Verified 11/28/23 22:23 SWELLS ramipril Allergy Severe TONGUE Verified 11/28/23 22:23 SWELLS valsartan [From Diovan] Allergy Severe TONGUE Verified 11/28/23 22:23 SWELLS Consultations 11/29/23 09:01 Consult Cardiology Routine Ordered Studies 11/28/23 22:14 CT head/brain wo con Stat Hospital Course (1) Influenza A: 78yo male with persistent cough productive for thick, yellow sputum as well as weakness, fatigue and decreased appetite. Patient found to be POSITIVE for influenza A. Suspect developing bacterial PNA as well. Symptoms have been ongoing x 2 weeks. Will not give Tamiflu -Admit to medical with telemetry -Maintain droplet precautions -Supportive care with Tylenol PRN, Robitussin -symptoms improved (2) Pneumonia: Suspect developing PNA given patient's symptoms - WBC count=9.7, baseline of appx 4. Elevated CRP. Procalcitonin is within normal limits -Follow cultures -Ceftriaxone and Azithromycin -Tylenol PRN -Albuterol PRN -Robitussin PRN -Flutter valve QID transition to po antibiotics (3) Acute kidney injury superimposed on CKD: Patient with elevated BUN and Cr from baseline. Presently 48 and 2.08, respectively. Patient reports normal UOP -Gentle IVF with LR at 100mL/hr x 2L -Avoid nephrotoxic agents -Renal dosing where needed -bun/cr are trending down , hold HCTZ, Lasix, Losartan (4) Elevated troponin: Troponin elevated at 48.2, repeat trop 200 -Telemetry monitoring -Repeat with AM labs IV Heparin ECHO EF 35-40 % ischemic cardiomyopathy , h/o CABG , demand ischemia needs cardiac work up as outpatient continue current treatment (5) Permanent atrial fibrillation: With elevated HR - presently 115bpm -Continue Metoprolol 200mg po daily -Continue Apixaban - will reduce dose to 2.5mg po BID for renal function (6) Diabetes mellitus type 2 in nonobese: Chronic. Well controlled on Metformin. Last [id number]=5.9 on 11/14/23 -Hold Metformin -ISS -Goal blood sugar 110 - 140 (7) Hypertension: Chronic. Stable -Continue Metoprolol -Monitor (8) Dyslipidemia: Chronic. Stable -Continue Atorvastatin (9) Demand ischemia: in setting pneumonia, acute respiratory failure , EZ EF 35-40 % continue current meds needs cardiac work up as outpatient (10) Metabolic encephalopathy: in setting of infection, EZ, respiratory failure resolved, back to baseline Plan discharge home Total Time Total Time Spent Total Time Spent (In Minutes): 45 Discharge Plan Discharge Items Patient Disposition: Home - Self-Care Reason For Visit: COUGH, SOB Discharge Diagnosis: pneumonia Activity: Resume your previous activity Non-emergency contact: Primary Care Provider and Print Shop Chief Clerk Call non-emergency contact if: your symptoms worsen and you have a fever Follow-up/Referrals: Demond Garcia DO [Primary Care Provider] - 12/07/23 11:00 am Diet: Carb Consistent or DM2 and Heart Healthy Addtl Attending Provider Instructions: follow up with humanities professor in 1 week Pending Studies at Discharge: No Stand-Alone Forms: My BDNA, Smoking Cessation Medications and DC Order Prescriptions: New azithromycin [Zithromax] 250 mg tablet 250 mg PO DAILY 4 Days Qty: 4 0RF Rx Instructions: start on day 2 of therapy cefuroxime axetil 500 mg tablet 500 mg PO BID 5 Days Qty: 10 0RF Eliquis 2.5 mg Tablet 2.5 mg PO BID Qty: 60 0RF Continued atorvastatin 40 mg tablet 40 mg PO DAILY Qty: 90 3RF Rx Instructions: TAKE 1 TABLET BY MOUTH ONCE DAILY metformin 500 mg tablet 500 mg PO BID Qty: 180 3RF cyanocobalamin (vitamin B-12) 1,000 mcg tablet 1,000 mcg PO DAILY Qty: 90 metoprolol succinate 200 mg tablet extended release 24 hr 200 mg PO DAILY Qty: 90 3RF aspirin 81 mg Tablet,Delayed Release (Dr/Ec) 81 mg PO DAILY multivitamin with minerals Tablet 1 tab PO DAILY terazosin 5 mg capsule 5 mg PO DAILY Rx Instructions: TAKE 1 CAPSULE BY MOUTH DAILY Held hydrochlorothiazide 25 mg tablet 25 mg PO DAILY Qty: 90 3RF Hold Instructions: Resume on 11/30/23. until you see pcp, humanities professor losartan 100 mg tablet 100 mg PO DAILY Qty: 90 3RF Hold Instructions: Resume on 12/07/23. until you see PCP Discontinued Eliquis 5 mg tablet 5 mg PO BID Qty: 180 3RF amlodipine 5 mg tablet 5 mg PO DAILY Qty: 90 3RF Discharge Orders: Discharge Order (Routine); Ordered 11/30/23 Ordered By: Teresa Sorenson Admission Data Admit Date/Time: 11/29/23 00:45 Attending Provider: Teresa Sorenson Admit Provider: Myrna Lopez Primary Care Provider: Demond Garcia Other Providers: Giuseppe Thrasher Other Interventions: Discharge Summary Assessment (RN) Last Done: 11/30/23 11:03 Coding Level of Care Code 42105 INP/OBS DISCH >30 MIN Diagnoses Influenza A J10.1 Pneumonia J18.9 Laterality: bilateral Lung location: lower lobe of lung Pneumonia type: due to unspecified organism Acute kidney injury superimposed on CKD N17.9; N18.9 Elevated troponin R79.89 Permanent atrial fibrillation I48.2 Diabetes mellitus type 2 in nonobese E11.9 Hypertension I10 Dyslipidemia E78.5 Demand ischemia I24.89 Metabolic encephalopathy G93.41
--- NOTE | 2023-12-01 06:24 | Electrocardiogram Report ---
Test Reason : Blood Pressure : / mmHG Vent. Rate : 126 BPM Atrial Rate : 000 BPM P-R Int : 000 ms QRS Dur : 106 ms QT Int : 322 ms P-R-T Axes : 000 -29 125 degrees QTc Int : 466 ms Atrial fibrillation with rapid ventricular response Incomplete right bundle branch block Septal infarct (cited on or before 08-MAY-2023) T wave abnormality, consider lateral ischemia Abnormal ECG When compared with ECG of 08-MAY-2023 11:18, Vent. rate has increased BY 65 BPM Questionable change in initial forces of Septal leads T wave inversion now evident in Lateral leads Confirmed by Shawn Savage ([id number]) on 12/01/2023 6:23:43 AM Referred By: REFERRED SELF Confirmed By:Shawn Savage
== END 2023-11-30 10:30 | disposition home or self-care (01) | DRG 193 ==
LOC: ED 20:57 → EDINP 11-29 00:45 → SUATTDRO 11-29 00:45 → INTOOBSV 11-29 00:45 → EDINP 11-29 19:33 → 2N 11-29 20:23

== ENCOUNTER 2024-04-19 09:19 | Inpatient (IN) ==
--- NOTE | 2024-04-19 09:37 | Emergency Department Note ---
Impression & Plan Acute congestive heart failure, Elevated troponin, Acute on chronic renal failure, Exertional chest pain, Bilateral pleural effusion ED Provider Note Name: CHARBEL SHEPARD Age: 78 Sex: Male Arrives Via: Walk-In Informant: Patient and patient's family ED Provider: Connor Baca MD Chief Complaint: chest tightness with exertion Impression: As per impressions Medical Decision Makin-year-old gentleman arrives for evaluation of exertional chest pain and shortness of breath. Ongoing for the last few days gradually worsening though has noted some shortness of breath at rest over the last 2 days. Family noting increasing exhaustion. On arrival patient is without symptoms other than feeling fatigued. Chest x-ray does show bilateral new pleural effusions and congestive failure but no overt pneumothorax or lobar infiltrate. Laboratory workup without evidence of infection. Troponin is elevated but review of chart he oftentimes has an elevated troponin in the setting of renal failure suspect this is not secondary to ACS given EKG is looking good. Will of course need further rule out though. Other labs do show worsening renal function with developing hyponatremia mild bump in potassium. Given all these things clearly patient will need further workup and evaluation. Triage/Nursing Notes reviewed by Me External Chart Review by me: Discharge summary from 11/30/2023 during patient's stay for pneumonia and EZ reviewed for past history. Differential:pneumonia, pneumothorax, anemia, COPD, CHF, infections, cardiac ischemia, pulmonary embolism, musculoskeletal, gastrointestinal, as well as other pathologies. Vital Signs: reviewed and remarkable for mild tachycardia Interventions: deferred to hospitalist Labs:ED labs Reviewed by me and remarkable for no significant abnormalities Imaging:A chest x-ray as per my interpretation bilateral pleural effusions right greater than left. These are new compared to previous. Moderate congestive failure bilaterally. Telemetry infiltrate. Start EKG:Sinus rhythm interpretation. Indication shortness of breath. A-fib with RVR at 103 bpm QTc of 466. There is a left anterior fascicular block. When compared to EKG January 04, 2024 no significant change. As discussed, no evidence of STEMI. Cardiac/Tele Monitoring: Cardiac Monitoring: An Order was placed for continuous cardiac monitoring. The monitor shows a rate of 90 with a afib rhythm. Consults:I discussed case with Dr. Vicente of the hospitalist service who will further evaluate patient and will bring in for hospitalization Plan: Disposition:Hospitalization. Condition: Good History of Present Illness: 78-year-old gentleman arrives for evaluation of chest tightness. Patient notes the last few days worsening chest tightness and shortness of breath with exertion. At rest he feels relatively well. The last few days though he has noted feeling increased exhaustion and even having some shortness of breath at rest periodically. Denies any current chest pain or shortness of breath. Denies any fevers, chills, abdominal pain, headaches, syncope, lightheadedness, leg swelling beyond baseline, other concerning signs or symptoms. He does note dark stools but states he has had those for a long time being on iron pills. He is on Eliquis for A-fib. He also takes aspirin amongst other medications. Patient was hospitalized about 3 months ago with pneumonia and sepsis. Notes he really has not improved since then and may have had decreased working apartment that time. Past Medical History:See Below Home Medications:See Below Allergies:ramipril Vitals:Blood Pressure: 131/79, Pulse 101, RR 18, T 36.4C, O2 96% on RA Physical Exam: GENERAL: Patient is tired/pale appearing and in no acute distress. RESPIRATORY: No dyspnea. Clear to auscultation and equal bilaterally. CARDIOVASCULAR: Regular rate and rhythm.No murmur appreciated. GASTROINTESTINAL: Abdomen soft, non-tender, no peritonitis. BACK: No midline tenderness, no CVA tenderness EXTREMITIES: Normal motion all extremities, no cyanosis, mild bilateral lower leg edema. NEUROLOGIC: Alert and oriented. No focal neurologic deficits appreciated SKIN: No rash, no jaundice, no diaphoresis. PSYCH: Appropriate GCS: 15 ED Course: Times/Reassessments: Patient stable throughout his stay without any specific complaints. Agreeable to hospitalization as Connor Baca MD Past Med/Surg History Problem List (Updated 04/19/24 @ 15:11 by Connor Baca MD) Bilateral pleural effusion (Acute) Exertional chest pain (Acute) Acute on chronic renal failure (Acute) Elevated troponin (Acute) Acute congestive heart failure (Acute) Elevated bilirubin Stable angina Acute on chronic heart failure Metabolic encephalopathy Demand ischemia Cardiomyopathy Hx of CABG (~1989) CAD (coronary artery disease) Elevated troponin Acute kidney injury superimposed on CKD EZ (acute kidney injury) (Acute) Acute confusion (Acute) Elevated troponin I level (Acute) Influenza A (Acute) Pneumonia (Acute) Diabetes mellitus type 2 in nonobese Hypertension (Chronic) Arteriosclerotic coronary artery disease (Chronic) Permanent atrial fibrillation (Acute) Chronic anticoagulation (Acute) Aortic valve sclerosis (Acute) Dyslipidemia (Chronic) Anemia CKD (chronic kidney disease) stage 3, GFR 30-59 ml/min Vitamin B12 deficiency Medical History Anemia Aortic valve sclerosis Arteriosclerotic coronary artery disease Dyslipidemia Elevated prostate specific antigen (PSA) Heart aneurysm Hypertension Permanent atrial fibrillation Sick sinus syndrome Vitamin B12 deficiency Surgical History Hx of CABG (~1989) Family History Unknown Coronary heart disease Sister Diabetes Brother Cardiac disorder Denies family history of Ovarian cancer Prostate cancer Breast cancer Lung cancer Colorectal cancer Social History Smoking Status: Former smoker Age Quit Using Tobacco: 43; Second Hand Exposure: No; Do You Dip or Chew Tobacco: No; Hx Alcohol Use: No Hx Substance Use: No Preferred Language: Thai Visual Impairment: Limited Hearing Ability: Normal Legal Support Manager Required: No Beliefs That Will Affect Care: None marital status: Current Living Situation: Spouse and Family current occupational status: retired How many Children do You have: 3 Feels Safe at Home: Yes Childhood Exposure to Second-Hand Smoke: No Diet: regular caffeine: Yes Dental Care, Regularly: No Physical Activity Frequency: Daily Seatbelt Use: always Sunscreen Use: No Assistive Devices: Glasses Allergies Allergies Allergy/AdvReac Type Severity Reaction Status Date / Time ramipril Allergy Severe TONGUE Verified 01/31/24 13:37 [facility] Meds Home Medications Medication Instructions Recorded Confirmed cyanocobalamin (vitamin B-12) 1,000 mcg PO DAILY #90 tabs 04/22/19 04/19/24 1,000 mcg tablet aspirin 81 mg tablet,delayed 81 mg PO DAILY 11/28/23 04/19/24 release multivitamin with minerals 1 tab PO DAILY 11/28/23 04/19/24 ascorbate calcium (vitamin C) 500 500 mg PO DAILY 01/31/24 04/19/24 mg tablet cholecalciferol (vitamin D3) 25 25 mcg PO DAILY 01/31/24 04/19/24 mcg (1,000 unit) capsule ferrous sulfate 325 mg (65 mg 325 mg PO BID 04/19/24 04/19/24 iron) tablet (iron) Previous Rx's Medication Instructions Recorded metformin 500 mg tablet 500 mg PO BID #180 tabs 09/03/23 losartan 100 mg tablet 100 mg PO DAILY #90 tabs 09/18/23 apixaban 5 mg tablet (Eliquis) 5 mg PO BID #180 tabs 01/04/24 carvedilol 25 mg tablet 25 mg PO BID #90 tabs 01/31/24 empagliflozin 10 mg tablet 10 mg PO DAILY #90 tabs 04/08/24 (Jardiance) atorvastatin 40 mg tablet 40 mg PO DAILY #90 tabs 04/17/24 Results & Data (ED) Vital Signs Vital Signs - 24 hr 04/19/24 09:21 04/19/24 09:35 04/19/24 09:37 Temperature 36.4 C L Temperature Source Temporal Artery Scan Pulse Rate 101 H 89 95 H Pulse Rate from SpO2 Sensor 91 H Respiratory Rate 18 16 Blood Pressure 131/79 131/89 Blood Pressure Mean 96 98 Pulse Oximetry 96 95 Oxygen Delivery Method Room Air Room Air Sepsis New/Unexplained Change in Mental Status No Sepsis Action Taken by Nursing No Action Required 04/19/24 09:39 04/19/24 10:00 04/19/24 10:30 Temperature Temperature Source Pulse Rate 85 Pulse Rate from SpO2 Sensor 86 Respiratory Rate 19 Blood Pressure 128/83 132/81 Blood Pressure Mean 102 112 Pulse Oximetry 95 Oxygen Delivery Method Room Air Room Air Sepsis New/Unexplained Change in Mental Status Sepsis Action Taken by Nursing 04/19/24 10:30 04/19/24 10:54 04/19/24 11:00 Temperature Temperature Source Pulse Rate 88 90 Pulse Rate from SpO2 Sensor 89 90 Respiratory Rate 17 19 Blood Pressure 145/81 H Blood Pressure Mean 110 Pulse Oximetry 91 94 Oxygen Delivery Method Sepsis New/Unexplained Change in Mental Status Sepsis Action Taken by Nursing 04/19/24 11:00 04/19/24 11:12 04/19/24 11:30 Temperature Temperature Source Pulse Rate 90 92 H Pulse Rate from SpO2 Sensor 91 H 92 H Respiratory Rate 21 20 Blood Pressure 145/81 H Blood Pressure Mean 110 Pulse Oximetry 94 95 Oxygen Delivery Method Room Air Room Air Sepsis New/Unexplained Change in Mental Status Sepsis Action Taken by Nursing 04/19/24 11:30 04/19/24 11:30 Temperature Temperature Source Pulse Rate 100 H Pulse Rate from SpO2 Sensor 95 H Respiratory Rate 19 Blood Pressure 138/94 Blood Pressure Mean 115 Pulse Oximetry 94 Oxygen Delivery Method Room Air Sepsis New/Unexplained Change in Mental Status Sepsis Action Taken by Nursing Laboratory Data 04/19/24 09:30 04/19/24 09:30 Lab Results 04/19/24 04/19/24 04/19/24 Range/Units 09:30 09:35 09:58 WBC 5.39 (4.8-10.8) K/ul RBC 3.73 L (4.70-6.10) M/uL Hgb 10.9 L (14.0-18.0) g/dl Hct 33.5 L (42.0-52.0) % MCV 89.8 (80.0-100.0) fL MCH 29.2 (25.0-34.0) pg MCHC 32.5 (32.0-36.0) g/dL RDW Std Deviation 53.3 H (36.4-46.3) fL RDW Coeff of Abbey 16.3 H (11.5-14.5) % Plt Count 147 (130-400) K/uL MPV 9.7 (9.4-12.4) fL Immature Gran % (Auto) 0.4 % Neut % (Auto) 73.7 % Lymph % (Auto) 16.9 % [place] % (Auto) 8.2 % Eos % (Auto) 0.6 % Baso % (Auto) 0.2 % Neut # (Auto) 3.98 (1.40-6.50) K/uL Lymph # (Auto) 0.91 L (1.20-3.40) K/uL [place] # (Auto) 0.44 (0.11-0.59) K/uL Eos # (Auto) 0.03 (0.00-0.50) K/uL Baso # (Auto) 0.01 (0.00-0.20) K/uL Immature Gran # (Auto) 0.02 (0.01-0.20) K/uL PT 17.0 H (9.0-12.0) Seconds INR 1.6 H (0.9-1.1) APTT 33 H (21-31) Seconds PTT Ratio 1.2 Sodium 129 L (136-145) mmol/L Potassium 5.3 H (3.5-5.1) mmol/L Chloride 94 L (98-107) mmol/L Carbon Dioxide 21 (21-32) mmol/L Anion Gap 14 H (3-11) BUN 33 H (6-23) mg/dl Creatinine 2.56 H (0.6-1.4) mg/dl Est Cr Clr Drug Dosing Not Reportable Est GFR ( Amer) 26.9 ml/min Est GFR (Non-Af Amer) 23.2 ml/min BUN/Creatinine Ratio 12.9 (10-20) Glucose 175 H (70-99(Fasting)) mg/dl Calcium 9.6 (8.6-10.3) mg/dl Magnesium 2.1 (1.7-2.4) mg/dl Total Bilirubin 1.7 H (0.2-1.0) mg/dl Direct Bilirubin 0.4 H (0-0.2) mg/dl AST 25 (13-39) U/L ALT 14 (7-52) U/L Alkaline Phosphatase 48 (34-104) U/L Troponin I High Sens 105.4 H* (0-20) pg/ml B-Natriuretic Peptide 3568 H (0-100) pg/ml Total Protein 7.4 (6.0-8.3) gm/dl Albumin 4.5 (3.4-5.0) gm/dl Procalcitonin 0.08 (0-0.5) ng/ml SARS-CoV-2 (PCR) NEGATIVE (Negative) Influenza Type A (PCR) Negative (Neg) Influenza Type B (PCR) Negative (Neg) RSV (RT-PCR) Negative (Neg) 04/19/24 Range/Units 11:35 WBC (4.8-10.8) K/ul RBC (4.70-6.10) M/uL Hgb (14.0-18.0) g/dl Hct (42.0-52.0) % MCV (80.0-100.0) fL MCH (25.0-34.0) pg MCHC (32.0-36.0) g/dL RDW Std Deviation (36.4-46.3) fL RDW Coeff of Abbey (11.5-14.5) % Plt Count (130-400) K/uL MPV (9.4-12.4) fL Immature Gran % (Auto) % Neut % (Auto) % Lymph % (Auto) % [place] % (Auto) % Eos % (Auto) % Baso % (Auto) % Neut # (Auto) (1.40-6.50) K/uL Lymph # (Auto) (1.20-3.40) K/uL [place] # (Auto) (0.11-0.59) K/uL Eos # (Auto) (0.00-0.50) K/uL Baso # (Auto) (0.00-0.20) K/uL Immature Gran # (Auto) (0.01-0.20) K/uL PT (9.0-12.0) Seconds INR (0.9-1.1) APTT (21-31) Seconds PTT Ratio Sodium (136-145) mmol/L Potassium (3.5-5.1) mmol/L Chloride (98-107) mmol/L Carbon Dioxide (21-32) mmol/L Anion Gap (3-11) BUN (6-23) mg/dl Creatinine (0.6-1.4) mg/dl Est Cr Clr Drug Dosing Est GFR ( Amer) ml/min Est GFR (Non-Af Amer) ml/min BUN/Creatinine Ratio (10-20) Glucose (70-99(Fasting)) mg/dl Calcium (8.6-10.3) mg/dl Magnesium (1.7-2.4) mg/dl Total Bilirubin (0.2-1.0) mg/dl Direct Bilirubin (0-0.2) mg/dl AST (13-39) U/L ALT (7-52) U/L Alkaline Phosphatase (34-104) U/L Troponin I High Sens 101.7 H* (0-20) pg/ml B-Natriuretic Peptide (0-100) pg/ml Total Protein (6.0-8.3) gm/dl Albumin (3.4-5.0) gm/dl Procalcitonin (0-0.5) ng/ml SARS-CoV-2 (PCR) (Negative) Influenza Type A (PCR) (Neg) Influenza Type B (PCR) (Neg) RSV (RT-PCR) (Neg) Administered Medications Discontinued Medications Apixaban (Apixaban 2.5 Mg Tab) 2.5 mg PO NOW ONE Stop: 04/19/24 13:46 Last Admin: 04/19/24 13:54 Dose: 2.5 mg Documented By: RICKEY Aspirin (Aspirin 81 Mg Ectab) 81 mg PO NOW ONE Stop: 04/19/24 12:03 Last Admin: 04/19/24 12:38 Dose: 81 mg Documented By: LILA Atorvastatin Calcium (Atorvastatin 40 Mg Tab) 40 mg PO NOW ONE Stop: 04/19/24 12:03 Last Admin: 04/19/24 13:43 Dose: 40 mg Documented By: LILA Furosemide (Furosemide Inj 20 Mg/2 Ml Vial) 20 mg IV ONE ONE Stop: 04/19/24 11:58 Last Admin: 04/19/24 12:36 Dose: 20 mg Documented By: LILA Imaging Data Radiologist's Impression: Chest X-Ray 04/19/24 09:35 XR chest 1V portable CLINICAL HISTORY: Chest Pains, ORTEGA TECHNIQUE: Single frontal radiograph of the chest was obtained. Comparison: Comparison is made to chest radiographs 01/22/2024 FINDINGS: Median sternotomy wires are unchanged. Cardiomegaly is noted. The aortic arch is calcified. The lungs are clear. Small bilateral pleural effusions are seen. IMPRESSION: Small bilateral pleural effusions. ACT 112: Negative or not required by law. Electronically signed by: Seng Melgoza M.D. 04/19/2024 10:07 AM Discharge Plan Visit Data Chief Complaint: Cardiac Assessment Stated Complaint: CHEST PAIN, SHORTNESS OF BREATH ED Provider: Connor Baca Discharge Problem: Acute congestive heart failure, Elevated troponin, Acute on chronic renal failure, Exertional chest pain, Bilateral pleural effusion Patient Disposition: Admitted As Inpatient Discharge Instructions Interventions: ED Discharge Assessment Last Done: 04/19/24 14:19 Discharge Problem: Acute congestive heart failure Qualifiers: Heart failure type: unspecified Qualified Code(s): I50.9 - Heart failure, unspecified Acute on chronic renal failure Qualifiers: Acute renal failure type: unspecified Chronic kidney disease stage: unspecified stage Qualified Code(s): N17.9 - Acute kidney failure, unspecified
[2024-04-19 09:43] LABS: Basophils # (auto) 0.01 K/uL (0.00-0.20); Basophils % (auto) 0.2 %; Eosinophils # (auto) 0.03 K/uL (0.00-0.50); Eosinophils % (auto) 0.6 %; Hematocrit (blood only) 33.5 % (42.0-52.0); Hemoglobin 10.9 g/dl (14.0-18.0); Immature Granulocytes # (auto) 0.02 K/uL (0.01-0.20); Immature Granulocytes % (auto) 0.4 %; Lymphocytes # (auto) 0.91 K/uL (1.20-3.40); Lymphocytes % (auto) 16.9 %; Mean Corpuscular Hemoglobin 29.2 pg (25.0-34.0); Mean Corpuscular Hgb Conc 32.5 g/dL (32.0-36.0); Mean Corpuscular Volume 89.8 fL (80.0-100.0); Mean Platelet Volume 9.7 fL (9.4-12.4); Monocytes # (auto) 0.44 K/uL (0.11-0.59); Monocytes % (auto) 8.2 %; Neutrophils # (auto) 3.98 K/uL (1.40-6.50); Neutrophils % (auto) 73.7 %; Platelet Count 147 K/uL (130-400); RDW Coefficient of Variation 16.3 % (11.5-14.5); RDW Standard Deviation 53.3 fL (36.4-46.3); Red Blood Count 3.73 M/uL (4.70-6.10); White Blood Count 5.39 K/ul (4.8-10.8)
[2024-04-19 09:59] LABS: INR 1.6 (0.9-1.1); Partial Thromboplastin Ratio 1.2; Partial Thromboplastin Time 33 Seconds (21-31)
--- NOTE | 2024-04-19 10:08 | XRay Report ---
XR chest 1V portable CLINICAL HISTORY: Chest Pains, ORTEGA TECHNIQUE: Single frontal radiograph of the chest was obtained. Comparison: Comparison is made to chest radiographs 01/22/2024 FINDINGS: Median sternotomy wires are unchanged. Cardiomegaly is noted. The aortic arch is calcified. The lungs are clear. Small bilateral pleural effusions are seen. IMPRESSION: Small bilateral pleural effusions. ACT 112: Negative or not required by law. Electronically signed by: Seng Melgoza M.D. 04/19/2024 10:07 AM
[2024-04-19 10:16] LABS: Albumin Level 4.5 gm/dl (3.4-5.0); Anion Gap 14 (3-11); Bilirubin Direct 0.4 mg/dl (0-0.2); Bilirubin,Total 1.7 mg/dl (0.2-1.0); Calcium 9.6 mg/dl (8.6-10.3); Carbon Dioxide 21 mmol/L (21-32); Chloride 94 mmol/L (98-107); Magnesium 2.1 mg/dl (1.7-2.4); Potassium 5.3 mmol/L (3.5-5.1); Sodium 129 mmol/L (136-145)
[2024-04-19 10:22] LABS: Alanine Aminotransferase 14 U/L (7-52); Alkaline Phosphatase 48 U/L (34-104); Aspartate Aminotransferase 25 U/L (13-39); BUN Creatinine Ratio 12.9 (10-20); Blood Urea Nitrogen 33 mg/dl (6-23); Est GFR (African American) 26.9 ml/min; Est GFR (Non-African American) 23.2 ml/min; Glucose 175 mg/dl (70-99(Fasting)); Total Protein 7.4 gm/dl (6.0-8.3)
[2024-04-19 10:26] LABS: Influenza A virus by PCR Negative (Neg); Influenza B virus by PCR Negative (Neg); RSV by PCR Negative (Neg); SARS CoV2 RNA(COVID-19) Ceph NEGATIVE (Negative)
[2024-04-19 10:40] LABS: Troponin I High Sensitivity 105.4 pg/ml (0-20)
--- NOTE | 2024-04-19 10:46 | Electrocardiogram Report ---
Test Reason : Blood Pressure : / mmHG Vent. Rate : 103 BPM Atrial Rate : 000 BPM P-R Int : 000 ms QRS Dur : 106 ms QT Int : 356 ms P-R-T Axes : 000 -30 131 degrees QTc Int : 466 ms Atrial fibrillation with rapid ventricular response Left axis deviation Poor R wave progression, consider anterior DE vs. lead placement vs. LVH Abnormal ECG When compared with ECG of 04-JAN-2024 12:01, (unconfirmed) Incomplete right bundle branch block is no longer Present Anteroseptal infarct is now Present Nonspecific T wave abnormality has replaced inverted T waves in Lateral leads Confirmed by Jl Guardado ([id number]) on 04/19/2024 10:46:03 AM Referred By: REFERRED SELF Confirmed By:Zheng Guardado
--- NOTE | 2024-04-19 11:15 | History & Physical Report ---
Date of Service April 19, 2024 Assessment & Plan (1) Acute on chronic heart failure: Plan: Acute exacerbation of ORTEGA x 2 days Gradual decline since December 2023 when patient had pneumonia BNP elevated at 3568 (was previously 1786 on 01/17/2024) Echo in December 2023 revealed LVEF at 35-40% Repeat echocardiogram ordered, pending Heart healthy diet Daily weights Strict I and O monitoring Given patient is not on diuretics and is currently exhibiting a mild EZ, will trial small amount of diuretic with Lasix 20mg IV Pending kidney function, will plan to place on Lasix 40 mg IV QAM A.m. CBC, CMP, mag (2) Acute kidney injury superimposed on CKD: Plan: BNP 33, creatinine 2.56 (baseline 1.9), EGFR 23.2 Avoid nephrotoxic agents for possible May be secondary to recent Jardiance use; started in December 2023 Hold Jardiance, losartan Trend BMP q6h for now (3) Elevated troponin I level: Plan: Troponin elevated at 105.4 on arrival, repeat pending Continuous telemetry monitoring (4) Diabetes mellitus type 2 in nonobese: Plan: Last A1c at 5.9% on 11/14/2023 Hold metformin, Jardiance Given kidneys, may need to be on different medications moving forward SSI; with target BSG range 110-140mg/dL, CF 50, carb ratio 15 T2DM diet BSG ACHS Adjust regimen as needed AM A1c (5) Permanent atrial fibrillation: Plan: Chronic; rate controlled Continue Eliquis, carvedilol (6) Stable angina: Plan: Patient denies active chest pain on arrival However, he does note new onset of chest tightness with minimal exertion such as walking that began about a month ago Cardiology consulted (7) Elevated bilirubin: Plan Disposition: Admit to [facility] telemetry Full code Heart healthy, T2DM diet VTE PPx: Eliquis History of Present Illness Chief Complaint: Cardiac assessment Primary Care Provider: Demond Garcia DO Kolby is a 78-year-old male with PMH of dyslipidemia, T2DM, permanent atrial fibrillation (on Eliquis), CKD stage III, CAD, and CABG. He presented on 04/19 for acute exacerbation of ORTEGA. The SOB is only present when he is exerting himself. This is not new for him; he notes he has had a gradual decline since he had pneumonia in December. No SOB at rest. No SOB when he lies flat on his back, but patient reports he sleeps up in recliner. Additionally, he notes chest tightness for the past month with most types of exertion. This is new for him and has never been present before. Patient reports he has not been eating much recently. He is lost around 10 pounds since December when he had pneumonia. Patient does watch his salt intake. While his legs are slightly swollen today, he reports they have been more swollen in the past. Additionally, patient notes he had an episode of hematuria a couple weeks ago, but did not seek medical attention for this. Patient took only his carvedilol this morning; no other medications. Patient manages his own medicine at home. He recently had his heart medications changed after pneumonia in December, including starting on Jardiance. He is not currently on diuretics, but reports he may have been on spironolactone in the past. Patient is a former tobacco cigarette smoker, but quit smoking in 1989; no recent alcohol use. Patient's vitals are stable at time of admission. ED course: ROS: Patient endorses mild night-sweats, worsening ORTEGA, productive cough, chest tightness with walking/exertion, intermittent pleuritic CP, and 1 episode of hematuria 2 weeks ago (resolved; did not pursue medical care at the time), Patient denies fever, chills, dizziness, lightheadedness, DYSON, chest pain at rest, chest palpitations, chest pressure, SOB, hemoptysis, abdominal pain, N/V/D, or change in urinary/bowel habits. Allergies Allergy/AdvReac Type Severity Reaction Status Date / Time ramipril Allergy Severe TONGUE Verified 01/31/24 13:37 [facility] Medications Medication Instructions Recorded Confirmed Type cyanocobalamin (vitamin B-12) 1,000 mcg PO DAILY #90 tabs 04/22/19 04/19/24 History 1,000 mcg tablet metformin 500 mg tablet 500 mg PO BID #180 tabs 09/03/23 04/19/24 Rx losartan 100 mg tablet 100 mg PO DAILY #90 tabs 09/18/23 04/19/24 Rx aspirin 81 mg tablet,delayed 81 mg PO DAILY 11/28/23 04/19/24 History release multivitamin with minerals 1 tab PO DAILY 11/28/23 04/19/24 History apixaban 5 mg tablet (Eliquis) 5 mg PO BID #180 tabs 01/04/24 04/19/24 Rx ascorbate calcium (vitamin C) 500 500 mg PO DAILY 01/31/24 04/19/24 History mg tablet carvedilol 25 mg tablet 25 mg PO BID #90 tabs 01/31/24 04/19/24 Rx cholecalciferol (vitamin D3) 25 25 mcg PO DAILY 01/31/24 04/19/24 History mcg (1,000 unit) capsule empagliflozin 10 mg tablet 10 mg PO DAILY #90 tabs 04/08/24 04/19/24 Rx (Jardiance) atorvastatin 40 mg tablet 40 mg PO DAILY #90 tabs 04/17/24 04/19/24 Rx ferrous sulfate 325 mg (65 mg 325 mg PO BID 04/19/24 04/19/24 History iron) tablet (iron) Past Med/Surg History Problem List (Updated 04/19/24 @ 12:12 by Gamal Govea PA-C) Elevated bilirubin Stable angina Acute on chronic heart failure Metabolic encephalopathy Demand ischemia Cardiomyopathy Hx of CABG (~1989) CAD (coronary artery disease) Elevated troponin Acute kidney injury superimposed on CKD EZ (acute kidney injury) (Acute) Acute confusion (Acute) Elevated troponin I level (Acute) Influenza A (Acute) Pneumonia (Acute) Diabetes mellitus type 2 in nonobese Hypertension (Chronic) Arteriosclerotic coronary artery disease (Chronic) Permanent atrial fibrillation (Acute) Chronic anticoagulation (Acute) Aortic valve sclerosis (Acute) Dyslipidemia (Chronic) Anemia CKD (chronic kidney disease) stage 3, GFR 30-59 ml/min Vitamin B12 deficiency Medical History Anemia Aortic valve sclerosis Arteriosclerotic coronary artery disease Dyslipidemia Elevated prostate specific antigen (PSA) Heart aneurysm Hypertension Permanent atrial fibrillation Sick sinus syndrome Vitamin B12 deficiency Surgical History Hx of CABG (~1989) Family History Unknown Coronary heart disease Sister Diabetes Brother Cardiac disorder Denies family history of Ovarian cancer Prostate cancer Breast cancer Lung cancer Colorectal cancer Social History Smoking Status: Former smoker Age Quit Using Tobacco: 43; Second Hand Exposure: No; Do You Dip or Chew Tobacco: No; Hx Alcohol Use: No Hx Substance Use: No Preferred Language: Irish Visual Impairment: Limited Hearing Ability: Normal 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 Beliefs That Will Affect Care: None marital status: Current Living Situation: Spouse and Family current occupational status: retired How many Children do You have: 3 Feels Safe at Home: Yes Childhood Exposure to Second-Hand Smoke: No Diet: regular caffeine: Yes Dental Care, Regularly: No Physical Activity Frequency: Daily Seatbelt Use: always Sunscreen Use: No Assistive Devices: Glasses Review of Systems Review of Systems: See HPI above Physical Exam Physical Exam: General: no acute distress; pleasant affect; non-toxic appearing; frail appearing; cooperative; SpO2 95% on RA HEENT: normocephalic, atraumatic; no scleral icterus; PERRLA; vision and hearing grossly intact Neck: supple; no lymphadenopathy; + JVD; trachea midline Skin: Patient may exhibit mild jaundice; warm, dry without signs of tenting; no cyanosis; no rashes, bruising, lesions, or erythema noted CV: chest wall NTP; irregularly irregular rhythm; S1/S2 normal; no murmurs/rubs/gallops; pulses intact and symmetric at radial, DP, and PT Lungs: no acute respiratory distress; symmetrical chest wall expansion; clear breath sounds across all lung perry w/o adventitious sounds; no wheezing ABD: Soft, NTP; BS present; no rebound/guarding; no distention MSK: no tics or fasciculations; +1 pitting edema in the lower extremities bilaterally extending up to the knees, nonerythematous Neuro: A&Ox3; normal mood and affect; fluent speech; no focal deficits; sensation grossly intact in the LEs b/l Results & Data Results & Data Vital Signs (Past 12 Hours) Vital Signs Temp Pulse Resp BP Pulse Ox O2 Del Method 04/19/24 10:00 85 19 128/83 95 Room Air 04/19/24 09:39 Room Air 04/19/24 09:37 95 H 04/19/24 09:35 89 16 131/89 95 Room Air 04/19/24 09:21 36.4 C L 101 H 18 131/79 96 Room Air Laboratory Results Abnormal lab results 04/19/24 04/19/24 Range/Units 09:30 09:58 RBC 3.73 L (4.70-6.10) M/uL Hgb 10.9 L (14.0-18.0) g/dl Hct 33.5 L (42.0-52.0) % RDW Std Deviation 53.3 H (36.4-46.3) fL RDW Coeff of Abbey 16.3 H (11.5-14.5) % Lymph # (Auto) 0.91 L (1.20-3.40) K/uL PT 17.0 H (9.0-12.0) Seconds INR 1.6 H (0.9-1.1) APTT 33 H (21-31) Seconds Sodium 129 L (136-145) mmol/L Potassium 5.3 H (3.5-5.1) mmol/L Chloride 94 L (98-107) mmol/L Anion Gap 14 H (3-11) BUN 33 H (6-23) mg/dl Creatinine 2.56 H (0.6-1.4) mg/dl Glucose 175 H (70-99(Fasting)) mg/dl Total Bilirubin 1.7 H (0.2-1.0) mg/dl Direct Bilirubin 0.4 H (0-0.2) mg/dl Troponin I High Sens 105.4 H* (0-20) pg/ml B-Natriuretic Peptide 3568 H (0-100) pg/ml Diagnostic Findings Chest X-Ray 04/19/24 09:35 XR chest 1V portable CLINICAL HISTORY: Chest Pains, ORTEGA TECHNIQUE: Single frontal radiograph of the chest was obtained. Comparison: Comparison is made to chest radiographs 01/22/2024 FINDINGS: Median sternotomy wires are unchanged. Cardiomegaly is noted. The aortic arch is calcified. The lungs are clear. Small bilateral pleural effusions are seen. IMPRESSION: Small bilateral pleural effusions. ACT 112: Negative or not required by law. Electronically signed by: Seng Melgoza M.D. 04/19/2024 10:07 AM ECG Additional Comments: ECG revealed atrial fibrillation with RVR at 103 bpm; QTc 466 Code Status & VTE Plan Code Status Full code (discussed with both patient and patient's family at bedside) VTE Prophylaxis Plan VTE Prophylaxis will be ordered: Yes Supervising Physician Co-Signing Physician Notes Attending addendum: I have physically seen this patient, have supervised the JAMARI's activities, and agree with the H&P unless as otherwise noted. Assessment and Plan: Acute on chronic HFrEF/hypertension/elevated troponin/CAD/chronic A-fib- Acute worsening over the past 2 days, but patient reports is never gone completely back to breathing normally since his pneumonia in December Most recent ejection fraction 35-40% on 12/28/2023 Troponin 105.4, with follow-up pending BNP 3568, follow both serially EKG without acute ischemic findings, does show A-fib with RVR Continue carvedilol, Eliquis Hold losartan The patient will be admitted to telemetry for serial cardiac enzymes, serial EKG's, cardiac rhythm monitoring and a 2-D echocardiogram with Dopplers. Will place patient on Lasix 20 mg IV initially, and then based on response can titrate upwards as needed Follow serial CBC with differential, chemistry profile and magnesium level Acute kidney injury superimposed on CKD- Creatinine 2.56, with base 2.01 Likely associated with empagliflozin and losartan, both of which will be held Follow serial BMP as noted, will likely improve with diuresis Diabetes mellitus- Hold empagliflozin and metformin Placed on Accu-Cheks with NovoLog SSI Remaining orders and notations as noted PG Care Time/CCT Total # of Minutes Spent Total Time Spent with Patient: Total time spent is greater than 50% in coordination of care (as documented) at patient's floor/unit and/or counseling patient: Coding [place] [address] INT INP/OBS CARE 3/75MIN Patient Type Established Medical Decision Making High Complexity Diagnoses Acute on chronic heart failure I50.9 Acute kidney injury superimposed on CKD N17.9; N18.9 Elevated troponin I level R79.89 Diabetes mellitus type 2 in nonobese E11.9 Permanent atrial fibrillation I48.2 Stable angina I20.89 Elevated bilirubin R17
[2024-04-19] MEDS: FUROSEMIDE INJ 20 MG/2 ML VIAL IV ONE ×2 (12:36→18:15)
[2024-04-19] MEDS: ASPIRIN 81 MG ECTAB PO ONE (12:38)
[2024-04-19] MEDS ORDERED: Patient's HEIGHT &/or WEIGHT Needed SCH (13:30)
[2024-04-19] MEDS: ATORVASTATIN 40 MG TAB PO ONE (13:43)
[2024-04-19 13:46] LABS: Appearance Urine Clear (Clear); Bacteria Urine Automated None Seen (None Seen); Bilirubin Urine Negative (Negative); Blood Urine 1+ (Negative); Color Urine Yellow; Glucose Urine UA 3+ (Negative); Ketones Urine Trace (Negative); Leukocyte Esterase Urine 1+ (Negative); Nitrite Urine Negative (Negative); Protein Urine 1+ (Negative); Specific Gravity Urine 1.024 (1.000-1.030); Urobilinogen Urine Negative (Negative); pH Urine 5.5 (4.5-7.5)
[2024-04-19] MEDS: APIXABAN 2.5 MG TAB PO ONE (13:54)
[2024-04-19] MEDS ORDERED: GLUCOSE 40% GEL 15 GM TUBE PO PRN (14:18)
[2024-04-19] MEDS ORDERED: DEXTROSE 50% 50 ML SYRINGE IV PRN (14:18)
[2024-04-19] MEDS ORDERED: GLUCOSE 10 TAB/TUBE PO PRN (14:18)
[2024-04-19] MEDS ORDERED: ACETAMINOPHEN 325 MG TAB PO PRN (14:18)
[2024-04-19] MEDS ORDERED: ONDANSETRON INJ 2 MG/ML 2 ML VIAL IV PRN (14:18)
[2024-04-19] MEDS ORDERED: GLUCAGON FOR INJ 1 MG VIAL SQ PRN (14:18)
[2024-04-19] MEDS ORDERED: CARBOHYDRATES FOR HYPOGLYCEMIA PO PRN (14:18)
--- NOTE | 2024-04-19 15:55 | XCELERA ---
[id number] \\[id number]
[2024-04-19 16:04] LABS: BUN Creatinine Ratio 14.3 (10-20); Calcium 9.9 mg/dl (8.6-10.3); Creatinine Clr Calc Pharmacy 26.5 ml/min; Est GFR (African American) 28.4 ml/min; Est GFR (Non-African American) 24.5 ml/min; Potassium 4.7 mmol/L (3.5-5.1)
[2024-04-19] MEDS: INSULIN ASPART PER UNIT CHARGE SC SCH (17:43)
[2024-04-19] MEDS: SODIUM CHLORIDE 1 GM TABLET PO SCH (20:16)
[2024-04-19] MEDS: FERROUS SULFATE 325 MG TAB PO SCH (20:16)
[2024-04-19] MEDS: carvediloL 25 MG TAB PO SCH (20:16)
[2024-04-19] MEDS: APIXABAN 5 MG TABLET PO SCH (20:16)
[2024-04-19 22:08] LABS: BUN Creatinine Ratio 14.5 (10-20); Calcium 9.8 mg/dl (8.6-10.3); Creatinine Clr Calc Pharmacy 23.5 ml/min; Est GFR (Non-African American) 23.3 ml/min; Potassium 4.7 mmol/L (3.5-5.1)
[2024-04-20 07:28] LABS: Basophils # (auto) 0.02 K/uL (0.00-0.20); Basophils % (auto) 0.5 %; Eosinophils # (auto) 0.06 K/uL (0.00-0.50); Eosinophils % (auto) 1.4 %; Hematocrit (blood only) 29.7 % (42.0-52.0); Hemoglobin 9.9 g/dl (14.0-18.0); Lymphocytes # (auto) 0.76 K/uL (1.20-3.40); Lymphocytes % (auto) 17.2 %; Mean Corpuscular Hemoglobin 29.6 pg (25.0-34.0); Mean Corpuscular Hgb Conc 33.3 g/dL (32.0-36.0); Mean Corpuscular Volume 88.7 fL (80.0-100.0); Mean Platelet Volume 10.5 fL (9.4-12.4); Monocytes % (auto) 13.6 %; Neutrophils # (auto) 2.98 K/uL (1.40-6.50); Neutrophils % (auto) 67.3 %; Platelet Count 123 K/uL (130-400); RDW Standard Deviation 52.1 fL (36.4-46.3); Red Blood Count 3.35 M/uL (4.70-6.10); White Blood Count 4.42 K/ul (4.8-10.8)
[2024-04-20] MEDS ORDERED: PHARMACY GLYCEMIC MGMT CONSULT PRN (07:34)
[2024-04-20 07:44] LABS: Albumin Globulin Ratio 1.6 (0.9-2); Albumin Level 4.2 gm/dl (3.4-5.0); BUN Creatinine Ratio 15.6 (10-20); Bilirubin,Total 1.5 mg/dl (0.2-1.0); Calcium 9.4 mg/dl (8.6-10.3); Creatinine Clr Calc Pharmacy 24.6 ml/min; Est GFR (African American) 28.6 ml/min; Est GFR (Non-African American) 24.7 ml/min; Globulin 2.6 gm/dl (2.5-4.0); Potassium 4.3 mmol/L (3.5-5.1); Total Protein 6.8 gm/dl (6.0-8.3)
[2024-04-20 07:56] LABS: Troponin I High Sensitivity 283.1 pg/ml (0-20)
[2024-04-20] MEDS: CHOLECALCIFEROL 25 MCG (1000 UNITS) TAB PO SCH (08:36)
[2024-04-20] MEDS: ASPIRIN 81 MG ECTAB PO SCH (08:36)
[2024-04-20] MEDS: ATORVASTATIN 40 MG TAB PO SCH (08:36)
[2024-04-20] MEDS: FUROSEMIDE 40 MG/4 ML VIAL IV SCH (08:39)
[2024-04-20 08:56] LABS: Estimated Average Glucose 126 mg/dl
--- NOTE | 2024-04-20 09:04 | Cardiology Consultation ---
Date of Consultation April 20, 2024 Assessment & Plan (1) Acute on chronic heart failure: (2) Exertional chest pain: (3) Elevated troponin: (4) Cardiomyopathy: (5) CAD (coronary artery disease): (6) Permanent atrial fibrillation: (7) Valvular heart disease: Plan 1. Acute decompensated heart failure with reduced ejection fraction: He is not seem to have a lot of pulmonary vascular congestion, but diuretics have been administered and will see his response. Very likely a lot of his dyspnea simply related to poor overall LV function. Unfortunately, he has an element of hyponatremia as well and renal dysfunction both of which could compromise our ability be very aggressive with diuresis. We will see how he responds to his dose of Lasix this morning. 2. With the: Unclear etiology. Progressive in nature. Likely ischemic given his history and symptoms. He has been maintained on carvedilol, Jardiance and losartan. I think if his renal function improves we could try Entresto. Spironolactone will also be a good option if his renal function improved slightly. 3. Coronary disease: Remote history of surgical revascularization. On regimen for secondary prevention to include apixaban, aspirin and high-dose atorvastatin. 4. Exertional chest pain: Certainly concerning for ischemia. I think with his cardiomyopathy and symptoms of chest discomfort will perform perfusion imaging. While on coronary angiography would be the preferred method for evaluation, I think his renal function precludes immediate intervention. Should he have evidence of significant ischemia on perfusion imaging will have to have a thorough discussion regarding the risks of intervention in the possibility of renal failure. 5. Atrial fibrillation: Permanent. No symptoms. Slightly elevated rates recently likely related to his decompensation. Will continue carvedilol and apixaban 6. Valvular heart disease: None severe. Not playing a role in his current symptoms. 7. Elevated troponin: Likely related to his acute decompensation. Not indicative of acute coronary syndrome. History of Present Illness Reason for Consultation: Shortness of breath, chest pain Requesting Physician: Jeferson Attending Physician: Dany Frey DO History of Present Illness The patient is a 78-year-old gentleman with a history of atrial fibrillation, coronary disease status post surgical revascularization and reduced LV systolic function presented to the emergency room with symptoms of worsening dyspnea on exertion. The patient was difficult historian. However, it seems that he has been having an element of shortness of breath for few months. Appears to have been admitted in December 2023 with influenza pneumonia and since that time has had some breathing difficulty. He states this is most noticeable with activity such as going to the bathroom or ambulating long distances. To the progressive nature of his symptoms he was advised to go to the emergency room by his . In addition to the shortness of breath he has been having some tightness in the chest. This also dense occur with extremes of exertion. Not associated with mild activity or occurring at rest. He denies orthopnea or paroxysmal nocturnal dyspnea. He has not noticed sig nificant swelling of lower extremities. He states that he continued to lose weight since his illness in December. He denies dizziness or lightheadedness. No orthostatic type symptoms. No sense of palpitation. Allergies Allergy/AdvReac Type Severity Reaction Status Date / Time ramipril Allergy Severe TONGUE Verified 01/31/24 13:37 [facility] Home Medications Medication Instructions Recorded Confirmed Type cyanocobalamin (vitamin B-12) 1,000 mcg PO DAILY #90 tabs 04/22/19 04/19/24 History 1,000 mcg tablet metformin 500 mg tablet 500 mg PO BID #180 tabs 09/03/23 04/19/24 Rx losartan 100 mg tablet 100 mg PO DAILY #90 tabs 09/18/23 04/19/24 Rx aspirin 81 mg tablet,delayed 81 mg PO DAILY 11/28/23 04/19/24 History release multivitamin with minerals 1 tab PO DAILY 11/28/23 04/19/24 History apixaban 5 mg tablet (Eliquis) 5 mg PO BID #180 tabs 01/04/24 04/19/24 Rx ascorbate calcium (vitamin C) 500 500 mg PO DAILY 01/31/24 04/19/24 History mg tablet carvedilol 25 mg tablet 25 mg PO BID #90 tabs 01/31/24 04/19/24 Rx cholecalciferol (vitamin D3) 25 25 mcg PO DAILY 01/31/24 04/19/24 History mcg (1,000 unit) capsule empagliflozin 10 mg tablet 10 mg PO DAILY #90 tabs 04/08/24 04/19/24 Rx (Jardiance) atorvastatin 40 mg tablet 40 mg PO DAILY #90 tabs 04/17/24 04/19/24 Rx ferrous sulfate 325 mg (65 mg 325 mg PO BID 04/19/24 04/19/24 History iron) tablet (iron) Patient History Medical History Anemia Aortic valve sclerosis Arteriosclerotic coronary artery disease Dyslipidemia Elevated prostate specific antigen (PSA) Heart aneurysm Hypertension Permanent atrial fibrillation Sick sinus syndrome Vitamin B12 deficiency Surgical History Hx of CABG (~1989) Family History Unknown Coronary heart disease Sister Diabetes Brother Cardiac disorder Denies family history of Ovarian cancer Prostate cancer Breast cancer Lung cancer Colorectal cancer Social History Smoking Status: Former smoker Age Quit Using Tobacco: 43; Second Hand Exposure: No; Do You Dip or Chew Tobacco: No; Hx Alcohol Use: No Hx Substance Use: No Preferred Language: [place] Islander Communication Ability: Effective Visual Impairment: Limited Hearing Ability: Normal Food Specialist Required: No Beliefs That Will Affect Care: None marital status: Current Living Situation: Spouse Current Living Situation Comment: daughter also lives with patient current occupational status: retired How many Children do You have: 3 Other Information That Helps Us Care for You: No Feels Safe at Home: Yes Safety Concerns: Feels Safe At This Time Childhood Exposure to Second-Hand Smoke: No Diet: regular caffeine: Yes Dental Care, Regularly: No Physical Activity Frequency: Daily Seatbelt Use: always Sunscreen Use: No Assistive Devices: Cane, Denture - Upper, Denture - Lower and Glasses Assistive Devices Comment: cane not with patient Review of Systems Review of Systems: Per HPI. No difficulty eating. Good appetite. No recent fevers or chills. Physical Exam Physical Exam: The patient is alert and oriented. Mood and affect appeared normal. He answered all questions appropriately. HEENT: Pupils are equal and reactive to light and accommodation. Extraocular movements are intact. The sclerae are anicteric. Neuro: Cranial nerves intact Lungs: Clear to auscultation bilaterally. He has good air movement without use of accessory muscles. No rales wheezes or rhonchi. Cardiac: Heart demonstrates an irregular rhythm. Normal S1 and S2. No murmurs on examination. Pulses: The patient has palpable radial pulses bilaterally that are equal in intensity Extremities: There was no evidence of hypoperfusion. There is no cyanosis or clubbing. Mild edema, left worse than right. Skin: I did not appreciate any rashes on examination today. Results & Data Vital Signs (Past 12 Hours) Vital Signs Temp Pulse Pulse Resp BP BP Pulse Ox 04/20/24 07:51 36.6 C 89 18 134/71 95 04/20/24 03:35 36.7 C 87 18 151/73 H 96 04/20/24 00:22 36.7 C 79 18 124/73 96 04/19/24 21:50 76 O2 Del Method 04/20/24 07:51 Room Air 04/20/24 03:35 Room Air 04/20/24 00:22 Room Air 04/19/24 21:50 Laboratory Results Abnormal Lab Results 04/19/24 04/19/24 04/19/24 09:30 09:35 09:58 WBC 5.39 RBC 3.73 L Hgb 10.9 L Hct 33.5 L MCV 89.8 MCH 29.2 MCHC 32.5 RDW Std Deviation 53.3 H RDW Coeff of [place] 16.3 H Plt Count 147 MPV 9.7 Immature Gran % (Auto) 0.4 Neut % (Auto) 73.7 Lymph % (Auto) 16.9 [place] % (Auto) 8.2 Eos % (Auto) 0.6 Baso % (Auto) 0.2 Neut # (Auto) 3.98 Lymph # (Auto) 0.91 L [place] # (Auto) 0.44 Eos # (Auto) 0.03 Baso # (Auto) 0.01 Immature Gran # (Auto) 0.02 PT 17.0 H INR 1.6 H APTT 33 H PTT Ratio 1.2 Sodium 129 L Potassium 5.3 H Chloride 94 L Carbon Dioxide 21 Anion Gap 14 H BUN 33 H Creatinine 2.56 H Est Cr Clr Drug Dosing Not Reportable Est GFR ( Amer) 26.9 Est GFR (Non-Af Amer) 23.2 BUN/Creatinine Ratio 12.9 Glucose 175 H POC Glucose Estimat Average Glucose Hemoglobin A1c Osmolality 287 Calcium 9.6 Magnesium 2.1 Total Bilirubin 1.7 H Direct Bilirubin 0.4 H AST 25 ALT 14 Alkaline Phosphatase 48 Troponin I High Sens 105.4 H* B-Natriuretic Peptide 3568 H Total Protein 7.4 Albumin 4.5 Globulin Albumin/Globulin Ratio Procalcitonin 0.08 Urine Color Urine Appearance Urine pH Ur Specific [place] Urine Protein Urine Glucose (UA) Urine Ketones Urine Blood Urine Nitrite Urine Bilirubin Urine Urobilinogen Ur Leukocyte Esterase Urine WBC (Auto) Urine RBC (Auto) U Hyaline Cast (Auto) U Epithel Cells (Auto) Urine Bacteria (Auto) Urine Osmolality Ur Random Sodium SARS-CoV-2 (PCR) NEGATIVE Influenza Type A (PCR) Negative Influenza Type B (PCR) Negative RSV (RT-PCR) Negative 04/19/24 04/19/24 04/19/24 11:35 13:20 15:05 WBC RBC Hgb Hct MCV MCH MCHC RDW Std Deviation RDW Coeff of [place] Plt Count MPV Immature Gran % (Auto) Neut % (Auto) Lymph % (Auto) [place] % (Auto) Eos % (Auto) Baso % (Auto) Neut # (Auto) Lymph # (Auto) [place] # (Auto) Eos # (Auto) Baso # (Auto) Immature Gran # (Auto) PT INR APTT PTT Ratio Sodium 127 L Potassium 4.7 Chloride 94 L Carbon Dioxide 21 Anion Gap 12 H BUN 35 H Creatinine 2.45 H Est Cr Clr Drug Dosing 26.5 Est GFR ( Amer) 28.4 Est GFR (Non-Af Amer) 24.5 BUN/Creatinine Ratio 14.3 Glucose 145 H POC Glucose Estimat Average Glucose Hemoglobin A1c Osmolality Calcium 9.9 Magnesium Total Bilirubin Direct Bilirubin AST ALT Alkaline Phosphatase Troponin I High Sens 101.7 H* B-Natriuretic Peptide Total Protein Albumin Globulin Albumin/Globulin Ratio Procalcitonin Urine Color Yellow Urine Appearance Clear Urine pH 5.5 Ur Specific [place] 1.024 Urine Protein 1+ H Urine Glucose (UA) 3+ H Urine Ketones Trace H Urine Blood 1+ H Urine Nitrite Negative Urine Bilirubin Negative Urine Urobilinogen Negative Ur Leukocyte Esterase 1+ H Urine WBC (Auto) 6-10 H Urine RBC (Auto) 6-10 H U Hyaline Cast (Auto) 3-5 H U Epithel Cells (Auto) 3-5 H Urine Bacteria (Auto) None Seen Urine Osmolality Ur Random Sodium SARS-CoV-2 (PCR) Influenza Type A (PCR) Influenza Type B (PCR) RSV (RT-PCR) 08/03/24 08/03/24 08/03/24 17:02 20:14 21:22 WBC RBC Hgb Hct MCV MCH MCHC RDW Std Deviation RDW Coeff of [place] Plt Count MPV Immature Gran % (Auto) Neut % (Auto) Lymph % (Auto) [place] % (Auto) Eos % (Auto) Baso % (Auto) Neut # (Auto) Lymph # (Auto) [place] # (Auto) Eos # (Auto) Baso # (Auto) Immature Gran # (Auto) PT INR APTT PTT Ratio Sodium 127 L Potassium 4.7 Chloride 94 L Carbon Dioxide 22 Anion Gap 11 BUN 37 H Creatinine 2.55 H Est Cr Clr Drug Dosing 23.5 Est GFR ( Amer) 27.0 Est GFR (Non-Af Amer) 23.3 BUN/Creatinine Ratio 14.5 Glucose 120 H POC Glucose 170 H 117 H Estimat Average Glucose Hemoglobin A1c Osmolality Calcium 9.8 Magnesium Total Bilirubin Direct Bilirubin AST ALT Alkaline Phosphatase Troponin I High Sens B-Natriuretic Peptide Total Protein Albumin Globulin Albumin/Globulin Ratio Procalcitonin Urine Color Urine Appearance Urine pH Ur Specific [place] Urine Protein Urine Glucose (UA) Urine Ketones Urine Blood Urine Nitrite Urine Bilirubin Urine Urobilinogen Ur Leukocyte Esterase Urine WBC (Auto) Urine RBC (Auto) U Hyaline Cast (Auto) U Epithel Cells (Auto) Urine Bacteria (Auto) Urine Osmolality Ur Random Sodium SARS-CoV-2 (PCR) Influenza Type A (PCR) Influenza Type B (PCR) RSV (RT-PCR) 04/19/24 04/20/24 04/20/24 21:44 06:25 08:19 WBC 4.42 L RBC 3.35 L Hgb 9.9 L Hct 29.7 L MCV 88.7 MCH 29.6 MCHC 33.3 RDW Std Deviation 52.1 H RDW Coeff of [place] 16.0 H Plt Count 123 L MPV 10.5 Immature Gran % (Auto) 0.0 Neut % (Auto) 67.3 Lymph % (Auto) 17.2 [place] % (Auto) 13.6 Eos % (Auto) 1.4 Baso % (Auto) 0.5 Neut # (Auto) 2.98 Lymph # (Auto) 0.76 L [place] # (Auto) 0.60 H Eos # (Auto) 0.06 Baso # (Auto) 0.02 Immature Gran # (Auto) 0.00 L PT INR APTT PTT Ratio Sodium 128 L Potassium 4.3 Chloride 94 L Carbon Dioxide 21 Anion Gap 13 H BUN 38 H Creatinine 2.43 H Est Cr Clr Drug Dosing 24.6 Est GFR ( Amer) 28.6 Est GFR (Non-Af Amer) 24.7 BUN/Creatinine Ratio 15.6 Glucose 120 H POC Glucose 144 H Estimat Average Glucose 126 Hemoglobin A1c 6.0 H Osmolality Calcium 9.4 Magnesium Total Bilirubin 1.5 H Direct Bilirubin AST 33 ALT 18 Alkaline Phosphatase 45 Troponin I High Sens 283.1 H* D B-Natriuretic Peptide Total Protein 6.8 Albumin 4.2 Globulin 2.6 Albumin/Globulin Ratio 1.6 Procalcitonin Urine Color Urine Appearance Urine pH Ur Specific [place] Urine Protein Urine Glucose (UA) Urine Ketones Urine Blood Urine Nitrite Urine Bilirubin Urine Urobilinogen Ur Leukocyte Esterase Urine WBC (Auto) Urine RBC (Auto) U Hyaline Cast (Auto) U Epithel Cells (Auto) Urine Bacteria (Auto) Urine Osmolality 349 L Ur Random Sodium 56 SARS-CoV-2 (PCR) Influenza Type A (PCR) Influenza Type B (PCR) RSV (RT-PCR) Diagnostic Findings Chest x-ray obtained the time admission did not reveal any acute cardiopulmonary findings. Echocardiogram dated 04/19/2024: Severely reduced LV systolic function with ejection fraction of 20%. Severe global hypokinesis. Moderate left atrial dilation. Mild aortic regurgitation. Moderate mitral regurgitation. Elevated right ventricular systolic pressure. Moderate dilation of the inferior vena cava. ECG Additional Comments: EKG obtained the time admission atrial fibrillation rapid ventricular response. Poor R-wave progression in the precordial leads and nonspecific ST and T-wave changes incomplete right bundle branch block PG Care Time/CCT Total # of Minutes Spent Total Time Spent with Patient: Total time spent is greater than 50% in coordination of care (as documented) at patient's floor/unit and/or counseling patient: Coding Level of Care Code 43962 INT INP/OBS CARE 75MIN Diagnoses Acute on chronic heart failure I50.9 Exertional chest pain R07.9 Elevated troponin R79.89 Cardiomyopathy I42.9 CAD (coronary artery disease) I25.10 Permanent atrial fibrillation I48.2 Valvular heart disease I38
--- NOTE | 2024-04-20 10:30 | Hospitalist Progress Note ---
Date of Service April 20, 2024 Assessment & Plan (1) Acute on chronic heart failure: Plan: Acute on chronic decompensated CHF exacerbation with reduced EF -ORTEGA x 2 days -Gradual decline since December 2023 when patient had pneumonia -BNP elevated at 3568 (was previously 1786 on 01/17/2024) -Echo in December 2023 revealed LVEF at 35-40% -Repeat echocardiogram reviewed with cardiology- noted decreased LV function -Started on Iv diuretics with caution given EZ on CKD. -Monitor strict I's and O's -Daily weights -Cardiology consulted: discussed with Dr. Guardado. Plan for stress testing in the AM for ischemic evaluation -NPO midnight pending stress test (2) Acute kidney injury superimposed on CKD: Plan: -On admission: creatinine 2.56 (baseline 1.9), EGFR 23.2 -Patient of note was recently started on Jardiance use; started in December 2023 -Hold nephrotoxic medications -Hold Jardiance, losartan -Follow up Renal US -Follow up urine studies -Will obtain nephrology evaluation for optimization given potential need for cardiac cath if positive stress testing (3) Elevated troponin I level: Plan: -Troponin's noted to be up-trending -Cardiology aware- discussed plan for stress testing in the AM- given EZ on CKD if stress testing positive may need further optimization prior to proceeding to cath -Continue to monitor on telemetry (4) Diabetes mellitus type 2 in nonobese: Plan: -Last A1c at 5.9% on 11/14/2023 -Hold metformin, Jardiance -Given CKD likely need to change therapy on DC -SSI; with target BSG range 110-140mg/dL, CF 50, carb ratio 15 -T2DM diet -BSG ACHS -Adjust regimen as needed -Follow up repeat HbA1c (5) Permanent atrial fibrillation: Plan: -Chronic; rate controlled -Continue Eliquis, carvedilol (6) Stable angina: Plan: -Hx of CAD -Patient denies active chest pain -Repeat Echo with hypokinesis noted -Plan for ischemic Eval in the AM with stress testing -Continue Eliquis, Asa, Lipitor, Beta claude -Holding Arb for now given EZ Plan VTE PPx: Eliquis NPO midnight for stress testing Monitor on telemetry Called to update over the phone. No answer. Left voicemail. Awaiting callback. Admission and Anticipated Discharge Date Admission Date: April 19, 2024 Subjective Patient seen and evaluated bedside Patient is currently in NAD Denies active chest pain at present. He states at home had dyspnea with exertion. At present denies dyspnea while he is at rest. Denies fevers, chills, nausea or vomiting Review of Systems Review of Systems: As indicated in HPI Physical Exam Physical Exam: General: no acute distress HEENT: normocephalic, atraumatic; no scleral icterus Neck: supple; no lymphadenopathy; Skin: warm, dry without signs of tenting; no cyanosis; CV: chest wall NTP; irregularly irregular rhythm; S1/S2 normal; no murmurs/rubs/gallops; pulses intact and symmetric at radial, DP, and PT Lungs: no acute respiratory distress; symmetrical chest wall expansion; clear breath sounds across all lung perry w/o adventitious sounds; no wheezing ABD: Soft, NTP; BS present; no rebound/guarding; no distention MSK: no tics or fasciculations; +1 pitting edema in the lower extremities bilaterally extending up to the knees, nonerythematous Neuro: no focal deficits; sensation grossly intact in the LEs b/l Results & Data Results & Data Vital Signs (Past 12 Hours) Vital Signs Temp Pulse Pulse Resp BP BP Pulse Ox 04/20/24 08:00 88 04/20/24 07:51 36.6 C 89 18 134/71 95 04/20/24 03:35 36.7 C 87 18 151/73 H 96 04/20/24 00:22 36.7 C 79 18 124/73 96 O2 Del Method 04/20/24 08:00 04/20/24 07:51 Room Air 04/20/24 03:35 Room Air 04/20/24 00:22 Room Air PG Care Time/CCT Total # of Minutes Spent Total Time Spent with Patient: Total time spent is greater than 50% in coordination of care (as documented) at patient's floor/unit and/or counseling patient: Coding Level of Care Code 63088 SUB INP/OBS CARE 2/35MIN Diagnoses Acute on chronic systolic heart failure I50.23 Heart failure type: systolic Acute kidney injury superimposed on CKD N17.9; N18.9 Elevated troponin I level R79.89 Diabetes mellitus type 2 in nonobese E11.9 Permanent atrial fibrillation I48.2 Stable angina I20.89 (1) Acute on chronic heart failure Heart failure type: systolic Qualified Code(s): I50.23 - Acute on chronic systolic (congestive) heart failure
--- NOTE | 2024-04-20 11:19 | Nephrology Consultation ---
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 Progressive renal insufficiency is hemodynamically mediated. Baseline creatinine has been ~2.0 * Will obtain renal ultrasound, urinalysis with microscopy, urine sodium and creatinine * Monitor I&O, daily BMP * Agree with trial of low-dose diuretic therapy to see if cardiac output will improve. Ultimately, however, suspect patient will require cardiac catheterization +/- inotropic support, AICD * Hyponatremia in the setting of CHF is a poor prognostic sign. * Discussed with patient, his spouse and daughter this morning the high likelihood of LEIDY related to cardiac catheterization. Explained that HD can be initiated if needed to sustain patient following cardiac catheterization. Discussed monitoring for kidney recovery while on dialysis and explained that if no evidence of recovery after 12 weeks, dialysis is typically considered permanent. * Await further cardiology input (2) Diabetes mellitus type 2 in nonobese: * Agree with holding Jardiance and metformin History of Present Illness Reason for Consultation: EZ/CKD Attending Physician: Dany Frey DO History of Present Illness Mr. Brody is a 78-year-old white male who is seen at the request of the [facility] hospitalist service for evaluation of EZ/CKD. Information for the HPI is obtained from direct patient interview and review of records in the EMR. HPI is summarized as follows: Mr. Brody has never undergone nephrology evaluation in the past. However his serum creatinine has gradually risen from 1.3 (10/04) to 2.0 (03/10). He likely has underlying renovascular disease. His medical history is significant for [place] [facility] [place] chronic atrial fibrillation (apixaban), AODM, hyperlipidemia, HTN, SSS, B12 deficiency. Mr. Brody presented to [facility] EMD 05/16/24 to evaluate a 3-day history of chest tightness and exer tional dyspnea. ECG revealed atrial fibrillation with RVR at 103 bpm. No acute ischemic changes noted. Troponin was mildly elevated consistent with CKD. Hyponatremia noted with sodium 127. Creatinine has risen to 2.5. Chest x-ray revealed evidence of CHF and small bilateral pleural effusions. Admission was advised for evaluation of CHF. Echocardiogram performed this morning revealed LVEF 15-20%, severe global hypokinesis, moderate MR/TR, RVSP 50-60 mmHg, moderately dilated IVC. Mr. Brody reports a history of gross hematuria related to NSAID therapy 2 weeks ago. This has resolved. He has had no further NSAID use. He denies the regular use of creatine, protein or herbal supplements. There is no family history of CKD/ESKD. Since admission patient's metformin, losartan and Jardiance have been held. Allergies Allergy/AdvReac Type Severity Reaction Status Date / Time ramipril Allergy Severe TONGUE Verified 01/31/24 13:37 [facility] Home Medications Medication Instructions Recorded Confirmed Type cyanocobalamin (vitamin B-12) 1,000 mcg PO DAILY #90 tabs 04/22/19 04/19/24 History 1,000 mcg tablet metformin 500 mg tablet 500 mg PO BID #180 tabs 09/03/23 04/19/24 Rx losartan 100 mg tablet 100 mg PO DAILY #90 tabs 09/18/23 04/19/24 Rx aspirin 81 mg tablet,delayed 81 mg PO DAILY 11/28/23 04/19/24 History release multivitamin with minerals 1 tab PO DAILY 11/28/23 04/19/24 History apixaban 5 mg tablet (Eliquis) 5 mg PO BID #180 tabs 01/04/24 04/19/24 Rx ascorbate calcium (vitamin C) 500 500 mg PO DAILY 01/31/24 04/19/24 History mg tablet carvedilol 25 mg tablet 25 mg PO BID #90 tabs 01/31/24 04/19/24 Rx cholecalciferol (vitamin D3) 25 25 mcg PO DAILY 01/31/24 04/19/24 History mcg (1,000 unit) capsule atorvastatin 40 mg tablet 40 mg PO DAILY #90 tabs 04/17/24 04/19/24 Rx ferrous sulfate 325 mg (65 mg 325 mg PO BID 04/19/24 04/19/24 History iron) tablet (iron) empagliflozin 10 mg tablet 10 mg PO DAILY #90 tabs 04/20/24 Rx (Jardiance) Patient History Medical History Elevated prostate specific antigen (PSA) 10/2022 Declines further evaluation, no further labs. 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 Beliefs That Will Affect Care: None marital status: Current Living Situation: Spouse Current Living Situation Comment: daughter also lives with patient current occupational status: retired How many Children do You have: 3 Other Information That Helps Us Care for You: No Feels Safe at Home: Yes Safety Concerns: Feels Safe At This Time Childhood Exposure to Second-Hand Smoke: No Diet: regular caffeine: Yes Dental Care, Regularly: No Physical Activity Frequency: Daily Seatbelt Use: always Sunscreen Use: No Assistive Devices: Cane, Denture - Upper, Denture - Lower and Glasses Assistive Devices Comment: cane not with patient Review of Systems Constitutional: no fever Eyes: no problem reported Ear, Nose, Mouth, Throat: no problem reported Respiratory: + dyspnea on exertion Cardiovascular: no chest pain Gastrointestinal: no nausea, no vomiting and no diarrhea/loose stools Genitourinary: no dysuria, no difficulty urinating or no flank pain Integumentary: no rash Neurologic: no problem reported Physical Exam Constitutional: + frail appearing; not in distress Eyes: PERRL, conjunctivae normal, anicteric sclerae ENMT: external ear and nose normal, oropharynx normal Neck: trachea midline, no thyromegaly Respiratory: normal respiratory effort, lungs clear to auscultation Cardiovascular: Rate/Rhythm: + tachycardic and + irregularly irregular Gastrointestinal (Abdomen): normal bowel sounds, soft, nontender, no hepatosplenomegaly Neurologic: Speech / Cognition: normal speech and normal cognition Results & Data Vital Signs (Past 12 Hours) Vital Signs Temp Pulse Pulse Resp BP BP Pulse Ox 04/20/24 08:00 88 04/20/24 07:51 36.6 C 89 18 134/71 95 04/20/24 03:35 36.7 C 87 18 151/73 H 96 04/20/24 00:22 36.7 C 79 18 124/73 96 O2 Del Method 04/20/24 08:00 04/20/24 07:51 Room Air 04/20/24 03:35 Room Air 04/20/24 00:22 Room Air Laboratory Results Laboratory Results WBC 4.42 K/ul (4.8-10.8) L 04/20/24 06:25 RBC 3.35 M/uL (4.70-6.10) L 04/20/24 06:25 Hgb 9.9 g/dl (14.0-18.0) L 04/20/24 06:25 Hct 29.7 % (42.0-52.0) L 04/20/24 06:25 MCV 88.7 fL (80.0-100.0) 04/20/24 06:25 MCH 29.6 pg (25.0-34.0) 04/20/24 06:25 MCHC 33.3 g/dL (32.0-36.0) 04/20/24 06:25 RDW Std Deviation 52.1 fL (36.4-46.3) H 04/20/24 06:25 RDW Coeff of Abbey 16.0 % (11.5-14.5) H 04/20/24 06:25 Plt Count 123 K/uL (130-400) L 04/20/24 06:25 MPV 10.5 fL (9.4-12.4) 04/20/24 06:25 Immature Gran % (Auto) 0.0 % 04/20/24 06:25 Neut % (Auto) 67.3 % 04/20/24 06:25 Lymph % (Auto) 17.2 % 04/20/24 06:25 [place] % (Auto) 13.6 % 04/20/24 06:25 Eos % (Auto) 1.4 % 04/20/24 06:25 Baso % (Auto) 0.5 % 04/20/24 06:25 Neut # (Auto) 2.98 K/uL (1.40-6.50) 04/20/24 06:25 Lymph # (Auto) 0.76 K/uL (1.20-3.40) L 04/20/24 06:25 [place] # (Auto) 0.60 K/uL (0.11-0.59) H 04/20/24 06:25 Eos # (Auto) 0.06 K/uL (0.00-0.50) 04/20/24 06:25 Baso # (Auto) 0.02 K/uL (0.00-0.20) 04/20/24 06:25 Immature Gran # (Auto) 0.00 K/uL (0.01-0.20) L 04/20/24 06:25 PT 17.0 Seconds (9.0-12.0) H 04/19/24 09:30 INR 1.6 (0.9-1.1) H 04/19/24 09:30 APTT 33 Seconds (21-31) H 04/19/24 09:30 PTT Ratio 1.2 04/19/24 09:30 Sodium 128 mmol/L (136-145) L 04/20/24 06:25 Potassium 4.3 mmol/L (3.5-5.1) 04/20/24 06:25 Chloride 94 mmol/L (98-107) L 04/20/24 06:25 Carbon Dioxide 21 mmol/L (21-32) 04/20/24 06:25 Anion Gap 13 (3-11) H 04/20/24 06:25 BUN 38 mg/dl (6-23) H 04/20/24 06:25 Creatinine 2.43 mg/dl (0.6-1.4) H 04/20/24 06:25 Est Cr Clr Drug Dosing 24.6 ml/min 04/20/24 06:25 Est GFR ( Amer) 28.6 ml/min 04/20/24 06:25 Est GFR (Non-Af Amer) 24.7 ml/min 04/20/24 06:25 BUN/Creatinine Ratio 15.6 (10-20) 04/20/24 06:25 Glucose 120 mg/dl (70-99(Fasting)) H 04/20/24 06:25 POC Glucose 144 mg/dl (70-99) H 04/20/24 08:19 Estimat Average Glucose 126 mg/dl 04/20/24 06:25 Hemoglobin A1c 6.0 % (4.5-5.6) H 04/20/24 06:25 Osmolality 287 mOsm/kg (280-300) 04/19/24 09:30 Calcium 9.4 mg/dl (8.6-10.3) 04/20/24 06:25 Magnesium 2.1 mg/dl (1.7-2.4) 04/19/24 09:30 Total Bilirubin 1.5 mg/dl (0.2-1.0) H 04/20/24 06:25 Direct Bilirubin 0.4 mg/dl (0-0.2) H 04/19/24 09:30 AST 33 U/L (13-39) 04/20/24 06:25 ALT 18 U/L (7-52) 04/20/24 06:25 Alkaline Phosphatase 45 U/L (34-104) 04/20/24 06:25 Troponin I High Sens 283.1 pg/ml (0-20) H* D 04/20/24 06:25 B-Natriuretic Peptide 3568 pg/ml (0-100) H 04/19/24 09:58 Total Protein 6.8 gm/dl (6.0-8.3) 04/20/24 06:25 Albumin 4.2 gm/dl (3.4-5.0) 04/20/24 06:25 Globulin 2.6 gm/dl (2.5-4.0) 04/20/24 06:25 Albumin/Globulin Ratio 1.6 (0.9-2) 04/20/24 06:25 Procalcitonin 0.08 ng/ml (0-0.5) 04/19/24 09:30 Urine Color Yellow 04/19/24 13:20 Urine Appearance Clear (Clear) 04/19/24 13:20 Urine pH 5.5 (4.5-7.5) 04/19/24 13:20 Ur Specific [place] 1.024 (1.000-1.030) 04/19/24 13:20 Urine Protein 1+ (Negative) H 04/19/24 13:20 Urine Glucose (UA) 3+ (Negative) H 04/19/24 13:20 Urine Ketones Trace (Negative) H 04/19/24 13:20 Urine Blood 1+ (Negative) H 04/19/24 13:20 Urine Nitrite Negative (Negative) 04/19/24 13:20 Urine Bilirubin Negative (Negative) 04/19/24 13:20 Urine Urobilinogen Negative (Negative) 04/19/24 13:20 Ur Leukocyte Esterase 1+ (Negative) H 04/19/24 13:20 Urine WBC (Auto) 6-10 /hpf (0-5) H 04/19/24 13:20 Urine RBC (Auto) 6-10 /hpf (0-2) H 04/19/24 13:20 U Hyaline Cast (Auto) 3-5 /lpf (0-2) H 04/19/24 13:20 U Epithel Cells (Auto) 3-5 /hpf (0-2) H 04/19/24 13:20 Urine Bacteria (Auto) None Seen (None Seen) 04/19/24 13:20 Urine Osmolality 349 mOsm/kg (500-800) L 04/19/24 21:44 Ur Random Sodium 56 mmol/L 04/19/24 21:44 SARS-CoV-2 (PCR) NEGATIVE (Negative) 04/19/24 09:35 Influenza Type A (PCR) Negative (Neg) 04/19/24 09:35 Influenza Type B (PCR) Negative (Neg) 04/19/24 09:35 RSV (RT-PCR) Negative (Neg) 04/19/24 09:35 Impressions Chest X-Ray 04/19/24 09:35 XR chest 1V portable CLINICAL HISTORY: Chest Pains, ORTEGA TECHNIQUE: Single frontal radiograph of the chest was obtained. Comparison: Comparison is made to chest radiographs 01/22/2024 FINDINGS: Median sternotomy wires are unchanged. Cardiomegaly is noted. The aortic arch is calcified. The lungs are clear. Small bilateral pleural effusions are seen. IMPRESSION: Small bilateral pleural effusions. ACT 112: Negative or not required by law. Electronically signed by: Seng Melgoza M.D. 04/19/2024 10:07 AM PG Care Time/CCT Total # of Minutes Spent Total Time Spent with Patient: Total time spent is greater than 50% in coordination of care (as documented) at patient's floor/unit and/or counseling patient: Coding Level of Care Code 18405 IN/OBS CONSULT LVL 5,80M Diagnoses Cardiorenal syndrome I13.10 Diabetes mellitus type 2 in nonobese E11.9
--- NOTE | 2024-04-20 11:51 | Ultrasound Report ---
RENAL ULTRASOUND HISTORY: EZ/CKD COMPARISON: Renal ultrasound 01/11/2021. FINDINGS: Right kidney: 11.4 cm. No hydronephrosis. Moderate cortical thinning again noted. There are 2 cysts w ith the largest in the upper pole measuring 13 mm. Left kidney: 10.5 cm. No hydronephrosis. Moderate cortical thinning again noted. There is a 12 mm cys t. Bladder: Trabeculated and thickened bladder wall. Only the left ureteral jet was identified this time . The prostate gland is enlarged and median lobe hypertrophy. IMPRESSION: 1. No hydronephrosis. 2. Moderate cortical thinning, unchanged. 3. Small bilateral renal cysts. 4. Trabeculated and thickened bladder wall. This is likely due to chronic outlet obstruction from the enlarged prostate gland. Correlation with urinalysis can be performed to exclude a cystitis. ACT 112: Negative or not required by law. Electronically signed by: Gamal Chase M.D. 04/20/2024 11:50 AM
[2024-04-20 11:53] LABS: Creatinine Urine Random 33.2 mg/dl; Protein Creatinine Ratio Urine 0.3 (0-0.2); Total Protein Urine Random 9.8 mg/dl (0-11.9)
[2024-04-21 06:08] LABS: Appearance Urine Clear (Clear); Bilirubin Urine Negative (Negative); Blood Urine Negative (Negative); Color Urine Yellow; Glucose Urine UA Negative (Negative); Ketones Urine Trace (Negative); Leukocyte Esterase Urine Negative (Negative); Nitrite Urine Negative (Negative); Protein Urine Negative (Negative); Specific Gravity Urine 1.016 (1.000-1.030); Urobilinogen Urine Negative (Negative); pH Urine 5.5 (4.5-7.5)
[2024-04-21 06:55] LABS: Basophils # (auto) 0.02 K/uL (0.00-0.20); Basophils % (auto) 0.5 %; Eosinophils % (auto) 2.3 %; Hemoglobin 10.4 g/dl (14.0-18.0); Lymphocytes # (auto) 1.06 K/uL (1.20-3.40); Lymphocytes % (auto) 24.6 %; Mean Corpuscular Hgb Conc 32.5 g/dL (32.0-36.0); Mean Corpuscular Volume 89.1 fL (80.0-100.0); Mean Platelet Volume 10.3 fL (9.4-12.4); Monocytes # (auto) 0.45 K/uL (0.11-0.59); Monocytes % (auto) 10.4 %; Neutrophils # (auto) 2.68 K/uL (1.40-6.50); Neutrophils % (auto) 62.2 %; Platelet Count 130 K/uL (130-400); RDW Coefficient of Variation 16.2 % (11.5-14.5); RDW Standard Deviation 52.5 fL (36.4-46.3); Red Blood Count 3.59 M/uL (4.70-6.10); White Blood Count 4.31 K/ul (4.8-10.8)
[2024-04-21 07:19] LABS: BUN Creatinine Ratio 16.2 (10-20); Calcium 9.4 mg/dl (8.6-10.3); Creatinine Clr Calc Pharmacy 24.2 ml/min; Est GFR (African American) 28.1 ml/min; Est GFR (Non-African American) 24.2 ml/min
--- NOTE | 2024-04-21 08:42 | Pharmacy Report ---
Pharmacy Glycemic Sign Off Nt - Date of Service April 21, 2024 - Assessment & Plan ASSESSMENT: * Pharmacy was consulted by Dr Frey on 04/20/24 for glycemic control and to write orders per [facility] inpatient glycemic control protocol. * Major changes made by pharmacy to antidiabetic regimen include: * addition of Novolog * Patient has been receiving/requiring 9 units of insulin per day for adequate glycemic control * BSGs ranging 90-144 mg/dL * Regimen has only required minor adjustments over the past 48hrs to achieve this level of control * Do not anticipate further changes in patient status that would quickly deteriorate glycemic control (i.e. patient to be NPO for upcoming procedure, steroids tapering, starting tube feedings, etc). PLAN FOR INPATIENT GLYCEMIC CONTROL: No changes needed to current regimen. * Hold basal insulin * Continue NovoLog per scale ACHS/Q6hrs while NPO * Goal range = 110-140 mg/dl * CF = 50 mg/dl/unit * CR = 1 unit for ever 20 g CHO consumed * Pharmacy is signing off of glycemic consult and will no longer be making adjustments to inpatient regimen. Please feel free to re-consult if needed. Thank you.
--- NOTE | 2024-04-21 09:05 | Nephrology Progress Note ---
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 Progressive renal insufficiency is hemodynamically mediated. Baseline creatinine has been ~2.0 * Kidney function has been stable last 24 hours w/ Cr 2.4. Patient exhibits good response to IV Furosemide * Urine sediment is acellular, UPCR 0.3 * Continue gentle diuresis w/ target 1-2 L/day * Hyponatremia is mildly improved (Na 128-->131) * Await results of nuclear cardiac stress test and further Cardiology input (2) Diabetes mellitus type 2 in nonobese: Plan: * Continue to hold Jardiance and metformin Admission and Anticipated Discharge Date Admission Date: April 19, 2024 Subjective Mr. Brody was evaluated in his hospital room this morning. He diuresed 1.8 L yesterday and reported that his breathing has improved. He currently denies angina and is awaiting a nuclear stress test this morning Review of Systems Constitutional: no fever Eyes: no problem reported Ear, Nose, Mouth, Throat: no problem reported Respiratory: + dyspnea on exertion Cardiovascular: no chest pain Gastrointestinal: no nausea, no vomiting and no diarrhea/loose stools Genitourinary: no dysuria, no difficulty urinating or no flank pain Integumentary: no rash Neurologic: no problem reported Physical Exam Constitutional: + frail appearing; not in distress Eyes: PERRL, conjunctivae normal, anicteric sclerae ENMT: external ear and nose normal, oropharynx normal Neck: trachea midline, no thyromegaly Respiratory: normal respiratory effort, lungs clear to auscultation Cardiovascular: Rate/Rhythm: regular rate and + irregularly irregular Gastrointestinal (Abdomen): normal bowel sounds, soft, nontender, no hepatosplenomegaly Neurologic: Speech / Cognition: normal speech and normal cognition Results & Data Vital Signs (Past 12 Hours) Vital Signs Temp Pulse Pulse Resp BP BP Pulse Ox 04/21/24 07:42 84 04/21/24 07:24 36.8 C 88 16 143/82 H 97 04/21/24 02:13 36.7 C 86 18 129/72 94 04/20/24 22:00 36.8 C 94 H 16 130/63 92 04/20/24 21:45 81 O2 Del Method 04/21/24 07:42 04/21/24 07:24 Room Air 04/21/24 02:13 Room Air 04/20/24 22:00 Room Air 04/20/24 21:45 Laboratory Results Laboratory Results - last 24 hr 04/20/24 04/20/24 04/20/24 11:10 12:11 16:55 WBC RBC Hgb Hct MCV MCH MCHC RDW Std Deviation RDW Coeff of Abbey Plt Count MPV Immature Gran % (Auto) Neut % (Auto) Lymph % (Auto) [place] % (Auto) Eos % (Auto) Baso % (Auto) Neut # (Auto) Lymph # (Auto) [place] # (Auto) Eos # (Auto) Baso # (Auto) Immature Gran # (Auto) Sodium Potassium Chloride Carbon Dioxide Anion Gap BUN Creatinine Est Cr Clr Drug Dosing Est GFR ( Amer) Est GFR (Non-Af Amer) BUN/Creatinine Ratio Glucose POC Glucose 118 H 113 H Calcium Urine Color Urine Appearance Urine pH Ur Specific [place] Urine Protein Urine Glucose (UA) Urine Ketones Urine Blood Urine Nitrite Urine Bilirubin Urine Urobilinogen Ur Leukocyte Esterase Ur Random Creatinine 33.2 U Random Total Protein 9.8 Ur Random Sodium 78 Protein/Creatinin Ratio 0.3 H 04/20/24 04/21/24 04/21/24 20:34 05:25 05:53 WBC 4.31 L RBC 3.59 L Hgb 10.4 L Hct 32.0 L MCV 89.1 MCH 29.0 MCHC 32.5 RDW Std Deviation 52.5 H RDW Coeff of Abbey 16.2 H Plt Count 130 MPV 10.3 Immature Gran % (Auto) 0.0 Neut % (Auto) 62.2 Lymph % (Auto) 24.6 [place] % (Auto) 10.4 Eos % (Auto) 2.3 Baso % (Auto) 0.5 Neut # (Auto) 2.68 Lymph # (Auto) 1.06 L [place] # (Auto) 0.45 Eos # (Auto) 0.10 Baso # (Auto) 0.02 Immature Gran # (Auto) 0.00 L Sodium 131 L Potassium 4.0 Chloride 95 L Carbon Dioxide 25 Anion Gap 11 BUN 40 H Creatinine 2.47 H Est Cr Clr Drug Dosing 24.2 Est GFR ( Amer) 28.1 Est GFR (Non-Af Amer) 24.2 BUN/Creatinine Ratio 16.2 Glucose 89 POC Glucose 90 Calcium 9.4 Urine Color Yellow Urine Appearance Clear Urine pH 5.5 Ur Specific [place] 1.016 Urine Protein Negative Urine Glucose (UA) Negative Urine Ketones Trace H Urine Blood Negative Urine Nitrite Negative Urine Bilirubin Negative Urine Urobilinogen Negative Ur Leukocyte Esterase Negative Ur Random Creatinine U Random Total Protein Ur Random Sodium Protein/Creatinin Ratio 04/21/24 06:21 WBC RBC Hgb Hct MCV MCH MCHC RDW Std Deviation RDW Coeff of [place] Plt Count MPV Immature Gran % (Auto) Neut % (Auto) Lymph % (Auto) [place] % (Auto) Eos % (Auto) Baso % (Auto) Neut # (Auto) Lymph # (Auto) [place] # (Auto) Eos # (Auto) Baso # (Auto) Immature Gran # (Auto) Sodium Potassium Chloride Carbon Dioxide Anion Gap BUN Creatinine Est Cr Clr Drug Dosing Est GFR ( Amer) Est GFR (Non-Af Amer) BUN/Creatinine Ratio Glucose POC Glucose 98 Calcium Urine Color Urine Appearance Urine pH Ur Specific [place] Urine Protein Urine Glucose (UA) Urine Ketones Urine Blood Urine Nitrite Urine Bilirubin Urine Urobilinogen Ur Leukocyte Esterase Ur Random Creatinine U Random Total Protein Ur Random Sodium Protein/Creatinin Ratio PG Care Time/CCT Total # of Minutes Spent Total Time Spent with Patient: Total time spent is greater than 50% in coordination of care (as documented) at patient's floor/unit and/or counseling patient: Coding Level of Care Code 63013 SUB INP/OBS CARE 3/50MIN Diagnoses Cardiorenal syndrome I13.10 Diabetes mellitus type 2 in nonobese E11.9
[2024-04-21] MEDS: REGADENOSON 0.4 MG/5 ML SYR IV ONE (14:12)
--- NOTE | 2024-04-21 14:32 | Myocardial Perfusion Study ---
Date of Service April 21, 2024 Myocardial Perfusion Study [facility] Myocardial Perfusion Study Report LEXISCAN STRESS MYOCARDIAL PERFUSION IMAGING STUDY Indication: Chest pain and shortness of breath Brief description: Rest portion-end 9:27 AM the patient was injected with 10.6 mCi of Tc 99m Cardiolite IV. 1 hour following the injection, myocardial perfusion imaging was performed in multiple projections. Stress portion-baseline heart rate, blood pressure, and EKG were obtained. The same parameters were monitored continuously for 3 minutes infusion and 3 minutes of recovery. They were intermittently recorded. Patient reported no symptoms with infusion. Immediately following infusion patient was injected with 30.5 mCi of technetium 99 Cardiolite IV. 30 minutes following injection, myocardial perfusion imaging was performed in multiple projections similar to those used for the rest portion. Hemodynamic and electrocardiographic data: 1. Resting heart rate of 88 bpm ruth to a maximum of 98 bpm with Lexiscan infusion. 2. Resting blood pressure was 141/72 mmHg and dropped to a minimum of 140/62 mmHg with Lexiscan infusion. 3. Resting EKG demonstrated incomplete right bundle branch block, old septal infarct, and atrial fibrillation with occasional aberrancy/PVC. There were no diagnostic ischemic ST segment or T wave changes with Lexiscan infusion. No additional Lexiscan induced arrhythmia. Myocardial perfusion imaging findings: 1. Raw data analysis demonstrates diaphragmatic attenuation. Otherwise good quality study which is adequate for interpretation. 2. Gated myocardial perfusion imaging demonstrates severely dilated left ventricle, dilated right ventricle, severe global hypokinesis with ejection fraction severely reduced and calculated at 22%. 3. There is a large in size, severe intensity, almost entirely fixed MPI defect involving the anterior, distal anterolateral, anteroseptal, distal inferior, and entire apical myocardium. There is very mild reversibility in the inferior septal myocardium. These findings are consistent with large and severe myocardial infarction with minimal jerica-infarct ischemia +/- diaphragmatic attenuation. 4. This is a severely abnormal study which is low risk for myocardial ischemia. No prior study for comparison. Discussed findings with cardiology. [facility] [place] perfusion code Indication for Procedure (1) Elevated troponin: (2) Cardiomyopathy: Procedure Code Procedure 1: Myocardial Perfusion Codes: 29822 Cardiovascular Stress Test, multiple Procedure 2: Myocardial Perfusion Codes: 73180 Cardiovascular Stress Test, supervision only Procedure 3: Myocardial Perfusion Codes: 35480 Cardiovascular Stress Test, interpretation and report
--- NOTE | 2024-04-21 16:34 | Cardiology Progress Note ---
Date of Service April 21, 2024 Assessment & Plan (1) Elevated troponin: (2) Cardiomyopathy: Plan 1. Acute decompensated heart failure with reduced ejection fraction: He appears to be improved. He affected a good diuresis. Think we will continue diuresis while he is here in the hospital monitoring his electrolytes and renal function closely. Will have to decide on a diuretic dose at the time of discharge. 2. Cardiomyopathy: Severe. This pain is likely a combination of ischemic and nonischemic heart disease. She can continue his carvedilol and Jardiance. Hopefully he can resume his losartan. We could consider switch to Entresto as well. 3. Coronary disease: Remote history of surgical revascularization. On regimen for secondary prevention to include apixaban, aspirin and high-dose atorvastatin. He appears to have suffered an infarct at point. In the absence of ischemia and in the setting of significant renal dysfunction I do not think there is a pressing indication for angiography. He will continue his apixaban, aspirin and high-dose atorvastatin. 4. Exertional chest pain: Some concerning symptoms for angina. Given the results of the perfusion study he does not appear to have a pressing indication for angiography on this basis. Also, significant renal dysfunction which places him at risk of contrast nephropathy. We could consider the addition of nitrates and hydralazine if losartan appears to be a less desirable option for his cardiomyopathy. 5. Atrial fibrillation: Permanent. No symptoms. Rate control seems adequate arrest. Will continue carvedilol and apixaban 6. Valvular heart disease: None severe. Not playing a role in his current symptoms. 7. Elevated troponin: Likely related to his acute decompensation. Not indicative of acute coronary syndrome. Admission and Anticipated Discharge Date Admission Date: April 19, 2024 Subjective This afternoon the patient claimed he feeling well. Denies significant breathing difficulty. He reports being ambulatory around his room without limitation. Exertional chest pain or dizziness. Review of Systems Review of Systems: Per HPI Physical Exam Physical Exam: The patient is alert and oriented. Mood and affect appeared normal. He answered all questions appropriately. HEENT: Pupils are equal and reactive to light and accommodation. Extraocular movements are intact. The sclerae are anicteric. Neuro: Cranial nerves intact Lungs: Clear to auscultation bilaterally. He has good air movement without use of accessory muscles. No rales wheezes or rhonchi. Cardiac: Heart demonstrates an irregular rhythm. Normal S1 and S2. No murmurs on examination. Pulses: The patient has palpable radial pulses bilaterally that are equal in intensity Extremities: There was no evidence of hypoperfusion. There is no cyanosis or clubbing. Mild edema, left worse than right. Skin: I did not appreciate any rashes on examination today. Results & Data Vital Signs (Past 12 Hours) Vital Signs Temp Pulse Pulse Resp BP Pulse Ox O2 Del Method 04/21/24 14:48 36.6 C 83 15 132/64 98 Room Air 04/21/24 14:35 92 H 04/21/24 12:29 36.4 C L 87 18 135/63 96 Room Air 04/21/24 07:42 84 04/21/24 07:24 36.8 C 88 16 143/82 H 97 Room Air Laboratory Results Abnormal Lab Results 04/20/24 04/20/24 04/21/24 16:55 20:34 05:25 WBC 4.31 L RBC 3.59 L Hgb 10.4 L Hct 32.0 L MCV 89.1 MCH 29.0 MCHC 32.5 RDW Std Deviation 52.5 H RDW Coeff of Abbey 16.2 H Plt Count 130 MPV 10.3 Immature Gran % (Auto) 0.0 Neut % (Auto) 62.2 Lymph % (Auto) 24.6 [place] % (Auto) 10.4 Eos % (Auto) 2.3 Baso % (Auto) 0.5 Neut # (Auto) 2.68 Lymph # (Auto) 1.06 L [place] # (Auto) 0.45 Eos # (Auto) 0.10 Baso # (Auto) 0.02 Immature Gran # (Auto) 0.00 L Sodium 131 L Potassium 4.0 Chloride 95 L Carbon Dioxide 25 Anion Gap 11 BUN 40 H Creatinine 2.47 H Est Cr Clr Drug Dosing 24.2 Est GFR ( Amer) 28.1 Est GFR (Non-Af Amer) 24.2 BUN/Creatinine Ratio 16.2 Glucose 89 POC Glucose 113 H 90 Calcium 9.4 Urine Color Urine Appearance Urine pH Ur Specific [place] Urine Protein Urine Glucose (UA) Urine Ketones Urine Blood Urine Nitrite Urine Bilirubin Urine Urobilinogen Ur Leukocyte Esterase 04/21/24 04/21/24 04/21/24 05:53 06:21 12:28 WBC RBC Hgb Hct MCV MCH MCHC RDW Std Deviation RDW Coeff of [place] Plt Count MPV Immature Gran % (Auto) Neut % (Auto) Lymph % (Auto) [place] % (Auto) Eos % (Auto) Baso % (Auto) Neut # (Auto) Lymph # (Auto) [place] # (Auto) Eos # (Auto) Baso # (Auto) Immature Gran # (Auto) Sodium Potassium Chloride Carbon Dioxide Anion Gap BUN Creatinine Est Cr Clr Drug Dosing Est GFR ( Amer) Est GFR (Non-Af Amer) BUN/Creatinine Ratio Glucose POC Glucose 98 108 H Calcium Urine Color Yellow Urine Appearance Clear Urine pH 5.5 Ur Specific [place] 1.016 Urine Protein Negative Urine Glucose (UA) Negative Urine Ketones Trace H Urine Blood Negative Urine Nitrite Negative Urine Bilirubin Negative Urine Urobilinogen Negative Ur Leukocyte Esterase Negative Diagnostic Findings Cardiac perfusion imaging demonstrated large left ventricular infarct without evidence of reversible ischemia. Severely reduced LV systolic function. PG Care Time/CCT Total # of Minutes Spent Total Time Spent with Patient: Total time spent is greater than 50% in coordination of care (as documented) at patient's floor/unit and/or counseling patient: Coding Level of Care Code 74147 SUB INP/OBS CARE 235MIN Diagnoses Elevated troponin R79.89 Cardiomyopathy I42.9
--- NOTE | 2024-04-21 21:56 | Hospitalist Progress Note ---
Date of Service April 21, 2024 Assessment & Plan (1) Acute on chronic heart failure: Plan: Acute on chronic decompensated CHF exacerbation with reduced EF -ORTEGA x 2 days -Gradual decline since December 2023 when patient had pneumonia -BNP elevated at 3568 (was previously 1786 on 01/17/2024) -Echo in December 2023 revealed LVEF at 35-40% -Repeat echocardiogram reviewed with cardiology- noted decreased LV function -Started on Iv diuretics with caution given EZ on CKD. -Monitor strict I's and O's -Daily weights -Cardiology consulted: discussed with Dr. Guardado. stress test did not show signs of ischemia. however patient did have an infarct in the past. WIll place on jardiance, losartan.\and continue to diurese. (2) Acute kidney injury superimposed on CKD: Plan: -On admission: creatinine 2.56 (baseline 1.9), EGFR 23.2 -Patient of note was recently started on Jardiance use; started in December 2023 -Hold nephrotoxic medications -Hold Jardiance, losartan -Follow up Renal US -Follow up urine studies -Will obtain nephrology evaluation for optimization given potential need for cardiac cath if positive stress testing (3) Elevated troponin I level: Plan: -Troponin's noted to be up-trending -Cardiology aware- discussed plan for stress testing in the AM- given EZ on CKD if stress testing positive may need further optimization prior to proceeding to cath -Continue to monitor on telemetry (4) Diabetes mellitus type 2 in nonobese: Plan: -Last A1c at 5.9% on 11/14/2023 -Hold metformin, Jardiance -Given CKD likely need to change therapy on DC -SSI; with target BSG range 110-140mg/dL, CF 50, carb ratio 15 -T2DM diet -BSG ACHS -Adjust regimen as needed -Follow up repeat HbA1c (5) Permanent atrial fibrillation: Plan: -Chronic; rate controlled -Continue Eliquis, carvedilol (6) Stable angina: Plan: -Hx of CAD -Patient denies active chest pain -Repeat Echo with hypokinesis noted -Plan for ischemic Eval in the AM with stress testing -Continue Eliquis, Asa, Lipitor, Beta claude -Holding Arb for now given EZ Plan VTE PPx: Eliquis Admission and Anticipated Discharge Date Admission Date: April 19, 2024 Subjective Patient reports feeling well. Ambulating the halls. Review of Systems Review of Systems: All systems reviewed & are unremarkable except as noted in HPI & below Physical Exam Physical Exam: General: no acute distress HEENT: normocephalic, atraumatic; no scleral icterus CHest: not using accessory muscles to breath Results & Data Results & Data Vital Signs (Past 12 Hours) Vital Signs Temp Pulse Pulse Resp BP Pulse Ox O2 Del Method 04/21/24 19:40 36.5 C 79 18 131/65 98 Room Air 04/21/24 14:48 36.6 C 83 15 132/64 98 Room Air 04/21/24 14:35 92 H 04/21/24 12:29 36.4 C L 87 18 135/63 96 Room Air PG Care Time/CCT Total # of Minutes Spent Total Time Spent with Patient: Total time spent is greater than 50% in coordination of care (as documented) at patient's floor/unit and/or counseling patient: Coding Level of Care Code 71828 SUB INP/OBS CARE 2/35MIN Diagnoses Acute on chronic systolic heart failure I50.23 Heart failure type: systolic Acute kidney injury superimposed on CKD N17.9; N18.9 Elevated troponin I level R79.89 Diabetes mellitus type 2 in nonobese E11.9 Permanent atrial fibrillation I48.2 Stable angina I20.89 (1) Acute on chronic heart failure Heart failure type: systolic Qualified Code(s): I50.23 - Acute on chronic systolic (congestive) heart failure
[2024-04-22] MEDS: FUROSEMIDE INJ 20 MG/2 ML VIAL IV SCH (08:32)
[2024-04-22 08:43] LABS: Basophils # (auto) 0.02 K/uL (0.00-0.20); Basophils % (auto) 0.6 %; Eosinophils # (auto) 0.07 K/uL (0.00-0.50); Eosinophils % (auto) 2.1 %; Hematocrit (blood only) 30.5 % (42.0-52.0); Hemoglobin 10.1 g/dl (14.0-18.0); Immature Granulocytes # (auto) 0.01 K/uL (0.01-0.20); Immature Granulocytes % (auto) 0.3 %; Lymphocytes # (auto) 0.62 K/uL (1.20-3.40); Lymphocytes % (auto) 18.3 %; Mean Corpuscular Hemoglobin 29.4 pg (25.0-34.0); Mean Corpuscular Hgb Conc 33.1 g/dL (32.0-36.0); Mean Corpuscular Volume 88.7 fL (80.0-100.0); Monocytes # (auto) 0.34 K/uL (0.11-0.59); Monocytes % (auto) 10.1 %; Neutrophils # (auto) 2.32 K/uL (1.40-6.50); Neutrophils % (auto) 68.6 %; Platelet Count 141 K/uL (130-400); RDW Coefficient of Variation 16.6 % (11.5-14.5); RDW Standard Deviation 53.3 fL (36.4-46.3); Red Blood Count 3.44 M/uL (4.70-6.10); White Blood Count 3.38 K/ul (4.8-10.8)
--- NOTE | 2024-04-22 08:53 | Nephrology Progress Note ---
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 Progressive renal insufficiency is hemodynamically mediated. Baseline creatinine has been ~2.0 * Kidney function has been stable last 24 hours w/ Cr 2.4-2.6 * Urine sediment is acellular, UPCR 0.3 * Recommend changing Furosemide to 20 mg po qAM * Hyponatremia is improved. Will stop NaCl supplement * Await results of nuclear cardiac stress test and further Cardiology input * In anticipation of discharge, I have asked my office staff to contact patient and arrange outpatient follow up in 7-14 days. He has orders active in EMR to have nonfasting CMP, CBC, urinalysis 2 days prior to visit (2) Diabetes mellitus type 2 in nonobese: Plan: * Continue to hold Jardiance and metformin Admission and Anticipated Discharge Date Admission Date: April 19, 2024 Subjective Mr. Brody was evaluated in his hospital room this morning. He diuresed 3.6 L since admission and states that his breathing has improved Review of Systems Constitutional: no fever Eyes: no problem reported Ear, Nose, Mouth, Throat: no problem reported Respiratory: + dyspnea on exertion Cardiovascular: no chest pain Gastrointestinal: no nausea, no vomiting and no diarrhea/loose stools Genitourinary: no dysuria, no difficulty urinating or no flank pain Integumentary: no rash Neurologic: no problem reported Physical Exam Constitutional: + frail appearing; not in distress Eyes: PERRL, conjunctivae normal, anicteric sclerae ENMT: external ear and nose normal, oropharynx normal Neck: trachea midline, no thyromegaly Respiratory: normal respiratory effort, lungs clear to auscultation Cardiovascular: Rate/Rhythm: regular rate, + tachycardic and + irregularly irregular Gastrointestinal (Abdomen): normal bowel sounds, soft, nontender, no hepatosplenomegaly Neurologic: Speech / Cognition: normal speech and normal cognition Results & Data Vital Signs (Past 12 Hours) Vital Signs Temp Pulse Pulse Resp BP BP Pulse Ox 04/22/24 07:37 36.8 C 86 15 138/74 97 04/22/24 07:36 83 04/22/24 02:07 36.4 C L 93 H 18 125/61 92 04/21/24 23:09 36.8 C 72 18 123/62 95 O2 Del Method 04/22/24 07:37 Room Air 04/22/24 07:36 04/22/24 02:07 Room Air 04/21/24 23:09 Room Air Laboratory Results Laboratory Results - last 24 hr 04/21/24 04/21/24 04/21/24 12:28 17:11 19:46 WBC RBC Hgb Hct MCV MCH MCHC RDW Std Deviation RDW Coeff of Abbey Plt Count MPV Immature Gran % (Auto) Neut % (Auto) Lymph % (Auto) [place] % (Auto) Eos % (Auto) Baso % (Auto) Neut # (Auto) Lymph # (Auto) [place] # (Auto) Eos # (Auto) Baso # (Auto) Immature Gran # (Auto) Sodium Potassium Chloride Carbon Dioxide Anion Gap BUN Creatinine Est Cr Clr Drug Dosing Est GFR ( Amer) Est GFR (Non-Af Amer) BUN/Creatinine Ratio Glucose POC Glucose 108 H 144 H 140 H Calcium 04/22/24 04/22/24 07:41 08:05 WBC 3.38 L RBC 3.44 L Hgb 10.1 L Hct 30.5 L MCV 88.7 MCH 29.4 MCHC 33.1 RDW Std Deviation 53.3 H RDW Coeff of Abbey 16.6 H Plt Count 141 MPV 10.0 Immature Gran % (Auto) 0.3 Neut % (Auto) 68.6 Lymph % (Auto) 18.3 [place] % (Auto) 10.1 Eos % (Auto) 2.1 Baso % (Auto) 0.6 Neut # (Auto) 2.32 Lymph # (Auto) 0.62 L [place] # (Auto) 0.34 Eos # (Auto) 0.07 Baso # (Auto) 0.02 Immature Gran # (Auto) 0.01 Sodium Pending Potassium Pending Chloride Pending Carbon Dioxide Pending Anion Gap Pending BUN Pending Creatinine Pending Est Cr Clr Drug Dosing Pending Est GFR ( Amer) Pending Est GFR (Non-Af Amer) Pending BUN/Creatinine Ratio Pending Glucose Pending POC Glucose 131 H Calcium Pending PG Care Time/CCT Total # of Minutes Spent Total Time Spent with Patient: Total time spent is greater than 50% in coordination of care (as documented) at patient's floor/unit and/or counseling patient: Coding Level of Care Code 65810 SUB INP/OBS CARE 3/50MIN Diagnoses Cardiorenal syndrome I13.10 Diabetes mellitus type 2 in nonobese E11.9
[2024-04-22 08:57] LABS: BUN Creatinine Ratio 15.4 (10-20); Calcium 9.2 mg/dl (8.6-10.3); Creatinine Clr Calc Pharmacy 22.5 ml/min; Est GFR (African American) 25.7 ml/min; Est GFR (Non-African American) 22.1 ml/min; Potassium 3.5 mmol/L (3.5-5.1)
[2024-04-22] MEDS: LOSARTAN POTASSIUM 25 MG TAB PO SCH (11:02)
--- NOTE | 2024-04-22 11:34 | Discharge Summary ---
Discharge Summary Date of Service April 22, 2024 Principal Dx & Hospital Course #1 = Principal Diagnosis (1) Acute on chronic heart failure: Acute on chronic decompensated CHF exacerbation with reduced EF -ORTEGA x 2 days -Gradual decline since December 2023 when patient had pneumonia -BNP elevated at 3568 (was previously 1786 on 01/17/2024) -Echo in December 2023 revealed LVEF at 35-40% -Repeat echocardiogram reviewed with cardiology- noted decreased LV function -Started on Iv diuretics with caution given EZ on CKD. -Monitor strict I's and O's -Daily weights -Cardiology consulted: discussed with Dr. Guardado. stress test did not show signs of ischemia. however patient did have an infarct in the past. WIll place on jardiance, losartan.\and continue to diurese. (2) Acute kidney injury superimposed on CKD: -On admission: creatinine 2.56 (baseline 1.9), EGFR 23.2 -Patient of note was recently started on Jardiance use; started in December 2023 -Hold nephrotoxic medications -Hold Jardiance, losartan -Follow up Renal US -Follow up urine studies -Will obtain nephrology evaluation for optimization given potential need for cardiac cath if positive stress testing (3) Elevated troponin I level: Demand ischemia -Troponin's noted to be up-trending -Cardiology aware- discussed plan for stress testing in the AM- given EZ on CKD if stress testing positive may need further optimization prior to proceeding to cath -Continue to monitor on telemetry (4) Diabetes mellitus type 2 in nonobese: -Last A1c at 5.9% on 11/14/2023 -Hold metformin, Jardiance -Given CKD likely need to change therapy on DC -SSI; with target BSG range 110-140mg/dL, CF 50, carb ratio 15 -T2DM diet -BSG ACHS -Adjust regimen as needed -Follow up repeat HbA1c (5) Permanent atrial fibrillation: -Chronic; rate controlled -Continue Eliquis, carvedilol (6) Stable angina: -Hx of CAD -Patient denies active chest pain -Repeat Echo with hypokinesis noted -Plan for ischemic Eval in the AM with stress testing -Continue Eliquis, Asa, Lipitor, Beta claude -Holding Arb for now given EZ Plan VTE PPx: Eliquis Admission HPI Per Admitting Provider Kolby is a 78-year-old male with PMH of dyslipidemia, T2DM, permanent atrial fibrillation (on Eliquis), CKD stage III, CAD, and CABG. He presented on 04/19 for acute exacerbation of ORTEGA. The SOB is only present when he is exerting himself. This is not new for him; he notes he has had a gradual decline since he had pneumonia in December. No SOB at rest. No SOB when he lies flat on his back, but patient reports he sleeps up in recliner. Additionally, he notes chest tightness for the past month with most types of exertion. This is new for him and has never been present before. Patient reports he has not been eating much recently. He is lost around 10 pounds since December when he had pneumonia. Patient does watch his salt intake. While his legs are slightly swollen today, he reports they have been more swollen in the past. Additionally, patient notes he had an episode of hematuria a couple weeks ago, but did not seek medical attention for this. Patient took only his carvedilol this morning; no other medications. Patient manages his own medicine at home. He recently had his heart medications changed after pneumonia in December, including starting on Jardiance. He is not currently on diuretics, but reports he may have been on spironolactone in the past. Patient is a former tobacco cigarette smoker, but quit smoking in 1989; no recent alcohol use. Patient's vitals are stable at time of admission. ED course: ROS: Patient endorses mild night-sweats, worsening ORTEGA, productive cough, chest tightness with walking/exertion, intermittent pleuritic CP, and 1 episode of hematuria 2 weeks ago (resolved; did not pursue medical care at the time), Patient denies fever, chills, dizziness, lightheadedness, DYSON, chest pain at rest, chest palpitations, chest pressure, SOB, hemoptysis, abdominal pain, N/V/D, or change in urinary/bowel habits. Updated Medication List Medication Instructions Recorded Confirmed Type cyanocobalamin (vitamin B-12) 1,000 mcg PO DAILY #90 tabs 04/22/19 04/19/24 History 1,000 mcg tablet metformin 500 mg tablet 500 mg PO BID #180 tabs 09/03/23 04/19/24 Rx losartan 100 mg tablet 100 mg PO DAILY #90 tabs 09/18/23 04/19/24 Rx aspirin 81 mg tablet,delayed 81 mg PO DAILY 11/28/23 04/19/24 History release multivitamin with minerals 1 tab PO DAILY 11/28/23 04/19/24 History apixaban 5 mg tablet (Eliquis) 5 mg PO BID #180 tabs 01/04/24 04/19/24 Rx ascorbate calcium (vitamin C) 500 500 mg PO DAILY 01/31/24 04/19/24 History mg tablet carvedilol 25 mg tablet 25 mg PO BID #90 tabs 01/31/24 04/19/24 Rx cholecalciferol (vitamin D3) 25 25 mcg PO DAILY 01/31/24 04/19/24 History mcg (1,000 unit) capsule atorvastatin 40 mg tablet 40 mg PO DAILY #90 tabs 04/17/24 04/19/24 Rx ferrous sulfate 325 mg (65 mg 325 mg PO BID 04/19/24 04/19/24 History iron) tablet (iron) empagliflozin 10 mg tablet 10 mg PO DAILY #90 tabs 04/20/24 Rx (Jardiance) Hospital Stay Data Consultations 04/19/24 11:13 ED Decision to Admit Stat 04/19/24 11:59 Consult Cardiology Routine 04/20/24 07:11 Consult Nephrology Routine Diagnostic Imagining Performed 04/20/24 10:23 US renal/blad retro comp Routine Coding Diagnoses Acute on chronic systolic heart failure I50.23 Heart failure type: systolic Acute kidney injury superimposed on CKD N17.9; N18.9 Elevated troponin I level R79.89 Diabetes mellitus type 2 in nonobese E11.9 Permanent atrial fibrillation I48.2 Stable angina I20.89
--- NOTE | 2024-04-22 12:24 | Cardiology Progress Note ---
Date of Service April 22, 2024 Assessment & Plan (1) Elevated troponin: (2) Cardiomyopathy: Plan 1. Acute decompensated heart failure with reduced ejection fraction: Resolved. Hopefully with a daily diuretic regimen and monitoring his weight can avoid further decompensation. 2. Cardiomyopathy: Severe. This pain is likely a combination of ischemic and nonischemic heart disease. He will continue carvedilol and a daily dose of diuretic. At this point Jardiance has been discontinued due to declining renal function. Low-dose losartan has been restarted. Hopefully will have an opportunity to intensify his regimen in the outpatient setting. We could consider the addition of hydralazine and nitroglycerin as well. 3. Coronary disease: Remote history of surgical revascularization. On regimen for secondary prevention to include apixaban, aspirin and high-dose ator vastatin. He appears to have suffered an infarct at some point. In the absence of ischemia and in the setting of significant renal dysfunction I do not think there is a pressing indication for angiography. We may need to change the recommendation if he continues to have recurrent symptoms of heart failure, recurrent hospitalizations or progressive angina. He will continue his apixaban, aspirin and high-dose atorvastatin. 4. Exertional chest pain: At this point seem more likely related to pulmonary vascular congestion and angina. Symptoms have resolved with adequate diuresis. 5. Atrial fibrillation: Permanent. No symptoms. Rate control seems adequate at rest. Will continue carvedilol and apixaban 6. Valvular heart disease: Non severe. Not playing a role in his current symptoms. 7. Elevated troponin: Likely related to his acute decompensation. Not indicative of acute coronary syndrome. Admission and Anticipated Discharge Date Admission Date: April 19, 2024 Subjective This afternoon the patient claimed he feeling well. He denies breathing dif ficulty. He has been ambulatory around the [place] without recurrent dyspnea or chest pressure. No dizziness or lightheadedness. Review of Systems Review of Systems: per HPI Physical Exam Physical Exam: The patient is alert and oriented. Mood and affect appeared normal. He answered all questions appropriately. HEENT: Pupils are equal and reactive to light and accommodation. Extraocular movements are intact. The sclerae are anicteric. Neuro: Cranial nerves intact Lungs: Clear to auscultation bilaterally. He has good air movement without use of accessory muscles. No rales wheezes or rhonchi. Cardiac: Heart demonstrates an irregular rhythm. Normal S1 and S2. No murmurs on examination. Pulses: The patient has palpable radial pulses bilaterally that are equal in intensity Extremities: There was no evidence of hypoperfusion. There is no cyanosis or clubbing. Mild edema, left worse than right. Skin: I did not appreciate any rashes on examination today. Results & Data Vital Signs (Past 12 Hours) Vital Signs Temp Pulse Pulse Resp BP Pulse Ox O2 Del Method 04/22/24 11:23 36.5 C 75 15 115/66 96 Room Air 04/22/24 07:37 36.8 C 86 15 138/74 97 Room Air 04/22/24 07:36 83 04/22/24 02:07 36.4 C L 93 H 18 125/61 92 Room Air Laboratory Results Abnormal Lab Results 04/21/24 04/21/24 04/21/24 12:28 17:11 19:46 WBC RBC Hgb Hct MCV MCH MCHC RDW Std Deviation RDW Coeff of [place] Plt Count MPV Immature Gran % (Auto) Neut % (Auto) Lymph % (Auto) [place] % (Auto) Eos % (Auto) Baso % (Auto) Neut # (Auto) Lymph # (Auto) [place] # (Auto) Eos # (Auto) Baso # (Auto) Immature Gran # (Auto) Sodium Potassium Chloride Carbon Dioxide Anion Gap BUN Creatinine Est Cr Clr Drug Dosing Est GFR ( Amer) Est GFR (Non-Af Amer) BUN/Creatinine Ratio Glucose POC Glucose 108 H 144 H 140 H Calcium 04/22/24 04/22/24 04/22/24 07:41 08:05 12:09 WBC 3.38 L RBC 3.44 L Hgb 10.1 L Hct 30.5 L MCV 88.7 MCH 29.4 MCHC 33.1 RDW Std Deviation 53.3 H RDW Coeff of [place] 16.6 H Plt Count 141 MPV 10.0 Immature Gran % (Auto) 0.3 Neut % (Auto) 68.6 Lymph % (Auto) 18.3 [place] % (Auto) 10.1 Eos % (Auto) 2.1 Baso % (Auto) 0.6 Neut # (Auto) 2.32 Lymph # (Auto) 0.62 L [place] # (Auto) 0.34 Eos # (Auto) 0.07 Baso # (Auto) 0.02 Immature Gran # (Auto) 0.01 Sodium 134 L Potassium 3.5 Chloride 95 L Carbon Dioxide 28 Anion Gap 11 BUN 41 H Creatinine 2.66 H Est Cr Clr Drug Dosing 22.5 Est GFR ( Amer) 25.7 Est GFR (Non-Af Amer) 22.1 BUN/Creatinine Ratio 15.4 Glucose 110 H POC Glucose 131 H 153 H Calcium 9.2 PG Care Time/CCT Total # of Minutes Spent Total Time Spent with Patient: Total time spent is greater than 50% in coordination of care (as documented) at patient's floor/unit and/or counseling patient: Coding Level of Care Code 57473 SUB INP/OBS CARE 2/35MIN Diagnoses Elevated troponin R79.89 Cardiomyopathy I42.9
== END 2024-04-22 13:16 | disposition home or self-care (01) | DRG 291 ==
LOC: ED 09:19 → EDINP 11:50 → SUATTDRO 11:50 → 2W 14:19 → 2N 04-20 06:08

== ENCOUNTER 2024-07-16 11:26 | Inpatient (IN) ==
--- NOTE | 2024-07-16 11:53 | Emergency Department Note ---
Impression & Plan Cardiorenal syndrome, A-fib, EZ (acute kidney injury), CHF (congestive heart failure) ED Provider Note NAME: CHARBEL SHEPARD AGE: 78 SEX: M : 1945 ARRIVES VIA: Walk-In INFORMANT: Patient, Family ED PROVIDER(S): Kendrick Dee MD CHIEF COMPLAINT: Shortness of breath, volume overload, outpatient referral MEDICAL DECISION MAKING: Patient presents due to concern for worsening shortness of breath and associated volume overload. IV was established and blood work was obtained. Blood work shows leukopenia with hemoglobin 9.4 which is chronic and stable. Thrombocytopenia 120,000. Patient most recently did have some thrombocytopenia noted on July 02. Kidney function is significantly worse has continued to decline from the threes and is now greater than 6. The patient reports that he is making good urine at home. Sodium 132. Patient does have elevated magnesium. Initial troponin of 31. BNP of 47,000. Given that the patient does have lower blood pressure and concerning for heart failure I did speak with the on-call nephrology and cardiology services. I spoke with Dr. Huizar who recommended the IV Bumex 2 mg twice daily and after discussing with Dr. Guardado with cardiology recommending dobutamine drip. I did inform the patient of the recommendations and findings. Patient did also have a bladder scan performed which did not show significant urinary retention as he only had around 100 cc of urine. Patient was started on the dobutamine drip as well as given the Lasix blood pressure did improve and the patient was admitted to the medicine service. 2 large-bore IVs obtained in anticipation of the dobutamine drip. Critical Care: I have personally spent 75 minutes of critical care time in direct management of this patient. This includes bedside care, interpretation of diagnostic studies, and testing, discussion with consultants, patient, and family members, and other require inpatient management activities. This 75 minutes is in excess of all separately billable procedures. Discussion w/ other healthcare providers: Dr. Huizar nephrology Dr. Guardado cardiology Dr. Dailey inpatient medicine service Prior /Outside records reviewed: I reviewed part of a primary care visit from [facility] from June 24, 2024. Known history of heart failure with reduced ejection fraction hypertension CAD A-fib diabetes. Patient currently on furosemide Entresto and Jardiance. Recently DC'd spironolactone and potassium chloride due to declining renal function. Does have a sodium restriction. Dry weight 166 weight at the time of his visit was 188. Metformin also recently held due to decline in renal function. Last echo from April severely reduced EF EF of 15 to 20% with severe global hypokinesis. Differential diagnosis: Reactive airway disease, pneumonia, pneumothorax, COPD, CHF, ACS, pulmonary embolism, musculoskeletal, GERD as well as other pathologies were considered. Diagnostics, as interpreted by me: ECG: Likely A-fibRate of 90, borderline QRS with PVCs noted. Cardiac monitoring: An order was placed for continuous cardiac monitoring. The monitor shows a rate of 88 with irregularly irregular rhythm. Patient was placed on pulse oximetry Medical decision rules: None Imaging studies: I informally interpreted the patient's Chest x-ray with right-sided pleural effusion with formal report to follow. HPI: Patient presents at the base of his outpatient providers due to concern for worsening fluid retention leg swelling weight gain and shortness of breath. The patient states that he does have shortness of breath at rest but it is worse with activity or laying flat. Patient denies any chest pains. Patient reports that he did have a fall about a week ago and did suffer a wound to the inner portion of his left lower leg. The patient states that he has been walking on it fairly well though. Patient denies any increase in salt or processed foods in the diet. The patient denies any cough or fever. Patient states that he has had abdominal and leg swelling. The patient does follow with Dr. Mcdaniel with cardiology. Patient reportedly did take some of his morning medications. PAST MEDICAL HISTORY: See Below PAST SURGICAL HISTORY: See Below SOCIAL HISTORY: See Below HOME MEDICATIONS: See Below ALLERGIES: See Below VITALS: See Below PHYSICAL EXAMINATION: GENERAL: NAD, non-toxic. Wearing glasses. EYE EXAM: Normal conjunctiva. PERRL, no anisocoria and EOM's grossly intact w/o pain. OROPHARYNX: Moist mucus membranes, grossly normal dentition. NECK: Trachea midline, no stridor. LUNGS: Decreased breath sounds right base. Normal chest wall mechanics. HEART: NSR, no MRG. ABDOMEN: Abdomen soft, non-tender, no masses, no rebound or guarding. BACK: No CVA TTP. SKIN: No rashes and no bruising. UPPER EXTREMITIES: Upper extremities are grossly normal. LOWER EXTREMITIES: Grossly normal, 2-3+ symmetric lower extremity edema without calf pain or erythema, good DP pulse bilaterally sensate, small wound noted over the medial aspect of the distal portion of the left lower leg with some associated ecchymosis, mild TTP over the medial distal lower leg but no pain to the medial malleolus, able to flex and extend the foot without issue. Bruising noted to the heel. No TTP to the foot heel or ankle. NEURO EXAM: A&O x3, cranial nerves II-XII grossly intact, normal speech, moves all 4 extremities. Past Med/Surg History Problem List (Updated 07/16/24 @ 17:58 by Kendrick Dee MD) CHF (congestive heart failure) (Acute) EZ (acute kidney injury) (Acute) A-fib (Acute) Chronic kidney disease, stage 4 (severe) Heart failure, systolic, with acute decompensation EZ (acute kidney injury) Cardiorenal syndrome (Acute) Hyponatremia Hyperkalemia HFrEF (heart failure with reduced ejection fraction) Hypertension (Chronic) CAD (coronary artery disease) Arteriosclerotic coronary artery disease (Chronic) Permanent atrial fibrillation (Acute) Chronic anticoagulation (Acute) Cardiomyopathy Hx of CABG (~1989) Valvular heart disease Diabetes mellitus type 2 in nonobese Dyslipidemia (Chronic) Anemia Vitamin B12 deficiency Vitamin D deficiency Medical History Stable angina Aortic valve sclerosis Metabolic encephalopathy Elevated prostate specific antigen (PSA) 10/2022 Declines further evaluation, no further labs. 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: No Beliefs That Will Affect Care: None marital status: Current Living Situation: Spouse Current Living Situation Comment: daughter also lives with patient current occupational status: retired How many Children do You have: 3 Feels Safe at Home: Yes Childhood Exposure to Second-Hand Smoke: No Diet: regular caffeine: Yes Dental Care, Regularly: No Physical Activity Frequency: Daily Seatbelt Use: always Sunscreen Use: No Assistive Devices: Cane Allergies Allergies Allergy/AdvReac Type Severity Reaction Status Date / Time ramipril Allergy Severe TONGUE Verified 07/16/24 13:44 [facility] Home Meds Home Medications Medication Instructions Recorded Confirmed cyanocobalamin (vitamin B-12) 1,000 mcg PO DAILY #90 tabs 04/22/19 07/16/24 1,000 mcg tablet aspirin 81 mg tablet,delayed 81 mg PO DAILY 11/28/23 07/16/24 release multivitamin with minerals 1 tab PO DAILY 11/28/23 07/16/24 ascorbate calcium (vitamin C) 500 500 mg PO DAILY 01/31/24 07/16/24 mg tablet cholecalciferol (vitamin D3) 25 25 mcg PO DAILY 01/31/24 07/16/24 mcg (1,000 unit) capsule ferrous sulfate 325 mg (65 mg 325 mg PO BID 04/19/24 07/16/24 iron) tablet (iron) Previous Rx's Medication Instructions Recorded atorvastatin 40 mg tablet 40 mg PO DAILY #90 tabs 04/17/24 carvedilol 25 mg tablet 25 mg PO BID #180 tabs 05/02/24 sacubitril 49 mg-valsartan 51 mg 0.5 tab PO BID #60 tabs 06/23/24 tablet (Entresto) apixaban 5 mg tablet (Eliquis) 5 mg PO BID #180 tabs 06/25/24 bumetanide 2 mg tablet 2 mg PO DAILY #60 tabs 07/03/24 metolazone 2.5 mg tablet 2.5 mg PO DAILY #90 tabs 07/11/24 Results & Data (ED) Vital Signs Vital Signs - 24 hr 07/16/24 11:45 07/16/24 12:11 07/16/24 12:23 Temperature 36.3 C L Temperature Source Temporal Artery Scan Pulse Rate 91 H 85 Pulse Rate [Apical] Pulse Rate from SpO2 Sensor Respiratory Rate 14 16 Respiratory Effort / Characteristics Respiratory Depth Respiratory Pattern Blood Pressure 77/49 L Blood Pressure [Right Arm] 84/49 L Blood Pressure Mean 58 Blood Pressure Mean [Right Arm] 60 Blood Pressure Position [Right Arm] Sitting Pulse Oximetry 98 98 Oxygen Delivery Method Room Air Room Air Sepsis New/Unexplained Change in Mental Status No Sepsis Action Taken by Nursing No Action Required 07/16/24 12:30 07/16/24 12:49 07/16/24 12:51 Temperature Temperature Source Pulse Rate 90 Pulse Rate [Apical] 88 Pulse Rate from SpO2 Sensor Respiratory Rate 20 Respiratory Effort / Characteristics Non-Labored Respiratory Depth Normal Respiratory Pattern Blood Pressure 76/53 L Blood Pressure [Right Arm] 92/54 L Blood Pressure Mean 61 Blood Pressure Mean [Right Arm] 66 Blood Pressure Position [Right Arm] Pulse Oximetry 99 Oxygen Delivery Method Room Air Sepsis New/Unexplained Change in Mental Status Sepsis Action Taken by Nursing 07/16/24 12:57 07/16/24 13:01 07/16/24 13:04 Temperature Temperature Source Pulse Rate 91 H Pulse Rate [Apical] Pulse Rate from SpO2 Sensor 93 H Respiratory Rate 18 Respiratory Effort / Characteristics Respiratory Depth Respiratory Pattern Blood Pressure 73/42 L 83/48 L Blood Pressure [Right Arm] Blood Pressure Mean 64 62 Blood Pressure Mean [Right Arm] Blood Pressure Position [Right Arm] Pulse Oximetry 98 Oxygen Delivery Method Sepsis New/Unexplained Change in Mental Status Sepsis Action Taken by Nursing 07/16/24 13:04 07/16/24 13:06 07/16/24 13:16 Temperature Temperature Source Pulse Rate Pulse Rate [Apical] 95 H Pulse Rate from SpO2 Sensor Respiratory Rate 20 Respiratory Effort / Characteristics Non-Labored Respiratory Depth Normal Respiratory Pattern Blood Pressure 83/48 L 82/51 L Blood Pressure [Right Arm] 83/48 L Blood Pressure Mean 62 62 Blood Pressure Mean [Right Arm] 59 Blood Pressure Position [Right Arm] Pulse Oximetry 99 Oxygen Delivery Method Room Air Sepsis New/Unexplained Change in Mental Status Sepsis Action Taken by Nursing 07/16/24 13:16 07/16/24 13:18 07/16/24 13:30 Temperature Temperature Source Pulse Rate 89 Pulse Rate [Apical] Pulse Rate from SpO2 Sensor 94 H Respiratory Rate 21 Respiratory Effort / Characteristics Respiratory Depth Respiratory Pattern Blood Pressure 82/51 L 74/55 L Blood Pressure [Right Arm] Blood Pressure Mean 62 58 Blood Pressure Mean [Right Arm] Blood Pressure Position [Right Arm] Pulse Oximetry 99 Oxygen Delivery Method Sepsis New/Unexplained Change in Mental Status Sepsis Action Taken by Nursing 07/16/24 13:30 07/16/24 13:30 07/16/24 13:30 Temperature Temperature Source Pulse Rate 89 Pulse Rate [Apical] Pulse Rate from SpO2 Sensor 91 H Respiratory Rate 19 Respiratory Effort / Characteristics Respiratory Depth Respiratory Pattern Blood Pressure 74/55 L 74/55 L Blood Pressure [Right Arm] Blood Pressure Mean 58 58 Blood Pressure Mean [Right Arm] Blood Pressure Position [Right Arm] Pulse Oximetry 99 Oxygen Delivery Method Sepsis New/Unexplained Change in Mental Status Sepsis Action Taken by Nursing 07/16/24 13:39 07/16/24 13:45 07/16/24 13:45 Temperature Temperature Source Pulse Rate 102 H Pulse Rate [Apical] Pulse Rate from SpO2 Sensor 99 H Respiratory Rate 17 Respiratory Effort / Characteristics Respiratory Depth Respiratory Pattern Blood Pressure 75/50 L 75/50 L Blood Pressure [Right Arm] Blood Pressure Mean 62 62 Blood Pressure Mean [Right Arm] Blood Pressure Position [Right Arm] Pulse Oximetry 99 Oxygen Delivery Method Sepsis New/Unexplained Change in Mental Status Sepsis Action Taken by Nursing 07/16/24 13:45 07/16/24 13:51 07/16/24 14:06 Temperature Temperature Source Pulse Rate 93 H 96 H Pulse Rate [Apical] Pulse Rate from SpO2 Sensor 99 H 101 H Respiratory Rate 16 17 Respiratory Effort / Characteristics Respiratory Depth Respiratory Pattern Blood Pressure 75/50 L Blood Pressure [Right Arm] Blood Pressure Mean 62 Blood Pressure Mean [Right Arm] Blood Pressure Position [Right Arm] Pulse Oximetry 98 98 Oxygen Delivery Method Sepsis New/Unexplained Change in Mental Status Sepsis Action Taken by Nursing 07/16/24 14:16 07/16/24 14:16 07/16/24 14:16 Temperature Temperature Source Pulse Rate Pulse Rate [Apical] Pulse Rate from SpO2 Sensor Respiratory Rate Respiratory Effort / Characteristics Respiratory Depth Respiratory Pattern Blood Pressure 89/62 L 89/62 L 89/62 L Blood Pressure [Right Arm] Blood Pressure Mean 77 77 77 Blood Pressure Mean [Right Arm] Blood Pressure Position [Right Arm] Pulse Oximetry Oxygen Delivery Method Sepsis New/Unexplained Change in Mental Status Sepsis Action Taken by Nursing 07/16/24 14:18 07/16/24 14:24 07/16/24 14:42 Temperature Temperature Source Pulse Rate 98 H 92 H 95 H Pulse Rate [Apical] Pulse Rate from SpO2 Sensor 105 H 92 H 103 H Respiratory Rate 14 17 17 Respiratory Effort / Characteristics Respiratory Depth Respiratory Pattern Blood Pressure Blood Pressure [Right Arm] Blood Pressure Mean Blood Pressure Mean [Right Arm] Blood Pressure Position [Right Arm] Pulse Oximetry 100 100 98 Oxygen Delivery Method Sepsis New/Unexplained Change in Mental Status Sepsis Action Taken by Nursing 07/16/24 14:57 07/16/24 15:45 07/16/24 16:00 Temperature Temperature Source Pulse Rate Pulse Rate [Apical] 94 H 102 H 100 H Pulse Rate from SpO2 Sensor Respiratory Rate 20 18 18 Respiratory Effort / Characteristics Non-Labored Non-Labored Respiratory Depth Normal Normal Respiratory Pattern Regular Blood Pressure Blood Pressure [Right Arm] 89/57 L 97/68 L 88/65 L Blood Pressure Mean Blood Pressure Mean [Right Arm] 67 77 72 Blood Pressure Position [Right Arm] Pulse Oximetry 98 98 98 Oxygen Delivery Method Room Air Room Air Sepsis New/Unexplained Change in Mental Status Sepsis Action Taken by Nursing 07/16/24 16:03 07/16/24 16:18 07/16/24 16:45 Temperature Temperature Source Pulse Rate 100 H 105 H 107 H Pulse Rate [Apical] Pulse Rate from SpO2 Sensor 105 H 107 H Respiratory Rate 21 16 Respiratory Effort / Characteristics Respiratory Depth Respiratory Pattern Blood Pressure 88/65 L 92/49 L 93/59 L Blood Pressure [Right Arm] Blood Pressure Mean 72 63 69 Blood Pressure Mean [Right Arm] Blood Pressure Position [Right Arm] Pulse Oximetry 99 99 98 Oxygen Delivery Method Sepsis New/Unexplained Change in Mental Status Sepsis Action Taken by Nursing 07/16/24 16:54 07/16/24 17:03 07/16/24 17:33 Temperature Temperature Source Pulse Rate 99 H 99 H 101 H Pulse Rate [Apical] Pulse Rate from SpO2 Sensor 102 H 105 H Respiratory Rate 18 17 Respiratory Effort / Characteristics Respiratory Depth Respiratory Pattern Blood Pressure 91/59 L 83/64 L Blood Pressure [Right Arm] Blood Pressure Mean 69 70 Blood Pressure Mean [Right Arm] Blood Pressure Position [Right Arm] Pulse Oximetry 97 98 Oxygen Delivery Method Sepsis New/Unexplained Change in Mental Status Sepsis Action Taken by Residential Medications Current Medication List: was personally reviewed by me Laboratory Data Attestation: I reviewed the patient's lab results. 07/16/24 12:10 07/16/24 12:10 Lab Results 07/16/24 07/16/24 07/16/24 Range/Units 12:10 13:54 14:34 WBC 2.93 L (4.8-10.8) K/ul RBC 3.26 L (4.70-6.10) M/uL Hgb 9.4 L (14.0-18.0) g/dl Hct 28.5 L (42.0-52.0) % MCV 87.4 (80.0-100.0) fL MCH 28.8 (25.0-34.0) pg MCHC 33.0 (32.0-36.0) g/dL RDW Std Deviation 53.9 H (36.4-46.3) fL RDW Coeff of [place] 16.8 H (11.5-14.5) % Plt Count 103 L (130-400) K/uL MPV 11.9 (9.4-12.4) fL Immature Gran % (Auto) 0.0 % Neut % (Auto) 74.2 % Lymph % (Auto) 14.3 % [place] % (Auto) 10.2 % Eos % (Auto) 1.0 % Baso % (Auto) 0.3 % Neut # (Auto) 2.17 (1.40-6.50) K/uL Lymph # (Auto) 0.42 L (1.20-3.40) K/uL [place] # (Auto) 0.30 (0.11-0.59) K/uL Eos # (Auto) 0.03 (0.00-0.50) K/uL Baso # (Auto) 0.01 (0.00-0.20) K/uL Immature Gran # (Auto) 0.00 L (0.01-0.20) K/uL PT 17.4 H (9.0-12.0) Seconds INR 1.7 H (0.9-1.1) APTT 33 H (21-31) Seconds PTT Ratio 1.2 Sodium 132 L (136-145) mmol/L Potassium 4.6 (3.5-5.1) mmol/L Chloride 95 L (98-107) mmol/L Carbon Dioxide 25 (21-32) mmol/L Anion Gap 12 H (3-11) BUN 90 H (6-23) mg/dl Creatinine 6.36 H* (0.6-1.4) mg/dl Est Cr Clr Drug Dosing 10.8 ml/min eGFR 8.42 BUN/Creatinine Ratio 14.2 (10-20) Glucose 160 H (70-99(Fasting)) mg/dl Lactate 1.6 (0.4-2.0) mmol/L Calcium 9.4 (8.6-10.3) mg/dl Magnesium 3.2 H (1.7-2.4) mg/dl Total Bilirubin 1.1 H (0.2-1.0) mg/dl AST 15 (13-39) U/L ALT 7 (7-52) U/L Alkaline Phosphatase 51 (34-104) U/L Troponin I High Sens 31.1 H 26.7 H (0-20) pg/ml B-Natriuretic Peptide > 4700 H (0-100) pg/ml Total Protein 7.1 (6.0-8.3) gm/dl Albumin 4.1 (3.4-5.0) gm/dl Globulin 3.0 (2.5-4.0) gm/dl Albumin/Globulin Ratio 1.4 (0.9-2) Urine Color Dark Yellow Urine Appearance Clear (Clear) Urine pH 5.0 (4.5-7.5) Ur Specific [place] 1.014 (1.000-1.030) Urine Protein 1+ H (Negative) Urine Glucose (UA) Negative (Negative) Urine Ketones Trace H (Negative) Urine Blood Negative (Negative) Urine Nitrite Negative (Negative) Urine Bilirubin Negative (Negative) Urine Urobilinogen Negative (Negative) Ur Leukocyte Esterase Trace H (Negative) Urine WBC (Auto) 6-10 H (0-5) /hpf Urine RBC (Auto) 3-5 H (0-2) /hpf U Hyaline Cast (Auto) 0-2 (0-2) /lpf U Epithel Cells (Auto) 0-2 (0-2) /hpf Urine Bacteria (Auto) None Seen (None Seen) Administered Medications Dobutamine HCl/Dextrose () 1,000 mg in 250 mls @ 6.975 mls/hr IV .Q24H AMANDEEP; Protocol Stop: 08/15/24 13:29 Last Admin: 07/16/24 14:07 Dose: 5 mcg/kg/min, 7 mls/hr Documented By: MELO Co-signed By: BMW Discontinued Medications Furosemide (Furosemide 40 Mg/4 Ml Vial) 80 mg IV ONE ONE Stop: 07/16/24 12:58 Last Admin: 07/16/24 15:43 Dose: Not Given Documented By: WILLIAM Bumetanide 2 mg/ Syringe 8 mls @ 4 mls/min IV ONE ONE Stop: 07/16/24 13:13 Last Admin: 07/16/24 15:43 Dose: Not Given Documented By: WILLIAM Bumetanide 2 mg/ Syringe 8 mls @ 4 mls/min IV ONE ONE Stop: 07/16/24 15:21 Last Admin: 07/16/24 15:43 Dose: 4 mls/min Documented By: WILLIAM Imaging Data Radiologist's Impression: Chest X-Ray 07/16/24 12:00 XR chest 1V portable CLINICAL HISTORY: Dyspnea TECHNIQUE: Single frontal radiograph of the chest was obtained. Comparison: Comparison is made to chest radiograph 04/19/2024 FINDINGS: Median sternotomy wires are unchanged. Cardiomegaly is noted. The aortic arch is calcified. The lungs are clear. There is bilateral pleural effusions. IMPRESSION: Trace bilateral pleural effusions are seen. Stable cardiomegaly. ACT 112: Negative or not required by law. Electronically signed by: Seng Melgoza M.D. 07/16/2024 1:19 PM Tibia/Fibula X-Ray 07/16/24 12:00 XR tibia fibula LT 2V CLINICAL HISTORY: fall COMPARISON: None FINDINGS: There are no fractures within the left tibia or fibula. Left lower leg soft tissue swelling is present. Talar dome is intact. Posterior and plantar calcaneal spurs are incidentally noted. There are surgical clips within the medial left lower leg. IMPRESSION: No fractures within the left tibia or fibula. ACT 112: Negative or not required by law. Electronically signed by: Keyon Escobar M.D. 07/16/2024 1:16 PM Renal Ultrasound 07/16/24 13:04 RENAL ULTRASOUND CLINICAL HISTORY: Acute kidney injury. COMPARISON STUDY: Renal ultrasound April 20, 2024. TECHNIQUE: Sonography of the kidneys and the urinary bladder was performed. FINDINGS: The right kidney measures 9.9 cm in maximal dimension and the left measures 11.1 cm. There is moderate bilateral renal cortical thinning and the kidneys are echogenic. Multiple bilateral renal lesions favor cysts although the left kidney is partially obscured. A small amount of abdominal and pelvic ascites is noted. There is slight nodularity of the liver surface. The bladder is decompressed and contains a Damian balloon. Bladder wall thickening was shown on prior exam. IMPRESSION: 1. No hydronephrosis. 2. Moderate bilateral renal cortical thinning. Echogenic kidneys. 3. Small amount of abdominal and pelvic ascites. 4. Bladder wall thickening, likely chronic. ACT 112: Negative or not required by law. Electronically signed by: Keyon Escobar M.D. 07/16/2024 5:35 PM Discharge Plan Visit Data Chief Complaint: Swelling/Edema to Extremity Stated Complaint: EDEMA/FLUID BUILD UP IN LEGS/LOWER ABD ED Provider: Kendrick Dee Discharge Problem: Cardiorenal syndrome, A-fib, EZ (acute kidney injury), CHF (congestive heart failure) Forms Stand Alone Forms: My [facility] [employer] Prescriptions Prescriptions: No Action atorvastatin 40 mg tablet 40 mg PO DAILY Qty: 90 3RF Rx Instructions: TAKE 1 TABLET BY MOUTH ONCE DAILY carvedilol 25 mg tablet 25 mg PO BID Qty: 180 3RF Rx Instructions: must administer with a meal/food Eliquis 5 mg tablet 5 mg PO BID Qty: 180 3RF bumetanide 2 mg tablet 2 mg PO DAILY Qty: 60 2RF Rx Instructions: Can increase to Bumex 2 mg BID as needed for worsening edema, SOB, weight gain. cyanocobalamin (vitamin B-12) 1,000 mcg tablet 1,000 mcg PO DAILY Qty: 90 ascorbate calcium (vitamin C) 500 mg tablet 500 mg PO DAILY cholecalciferol (vitamin D3) 25 mcg (1,000 unit) capsule 25 mcg PO DAILY metolazone 2.5 mg tablet 2.5 mg PO DAILY Qty: 90 3RF Entresto 49-51 mg tablet 0.5 tab PO BID Qty: 60 2RF ferrous sulfate [iron] 325 mg (65 mg iron) Tablet 325 mg PO BID aspirin 81 mg Tablet,Delayed Release (Dr/Ec) 81 mg PO DAILY multivitamin with minerals Tablet 1 tab PO DAILY Referrals Referrals: Demond Garcia DO [Primary Care Provider] - Discharge Problem: Cardiorenal syndrome Qualifiers: Heart failure presence: with heart failure 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 A-fib Qualifiers: Atrial fibrillation type: permanent Qualified Code(s): I48.21 - Permanent atrial fibrillation CHF (congestive heart failure) Qualifiers: Heart failure type: systolic Heart failure chronicity: acute on chronic Q ualified Code(s): I50.23 - Acute on chronic systolic (congestive) heart failure
[2024-07-16 12:36] LABS: Basophils # (auto) 0.01 K/uL (0.00-0.20); Basophils % (auto) 0.3 %; Eosinophils # (auto) 0.03 K/uL (0.00-0.50); Hematocrit (blood only) 28.5 % (42.0-52.0); Hemoglobin 9.4 g/dl (14.0-18.0); Lymphocytes # (auto) 0.42 K/uL (1.20-3.40); Lymphocytes % (auto) 14.3 %; Mean Corpuscular Hemoglobin 28.8 pg (25.0-34.0); Mean Corpuscular Volume 87.4 fL (80.0-100.0); Mean Platelet Volume 11.9 fL (9.4-12.4); Monocytes % (auto) 10.2 %; Neutrophils # (auto) 2.17 K/uL (1.40-6.50); Neutrophils % (auto) 74.2 %; Platelet Count 103 K/uL (130-400); RDW Coefficient of Variation 16.8 % (11.5-14.5); RDW Standard Deviation 53.9 fL (36.4-46.3); Red Blood Count 3.26 M/uL (4.70-6.10); White Blood Count 2.93 K/ul (4.8-10.8)
[2024-07-16 12:51] LABS: Albumin Globulin Ratio 1.4 (0.9-2); Albumin Level 4.1 gm/dl (3.4-5.0); BUN Creatinine Ratio 14.2 (10-20); Bilirubin,Total 1.1 mg/dl (0.2-1.0); Calcium 9.4 mg/dl (8.6-10.3); Creatinine Clr Calc Pharmacy 10.8 ml/min; Magnesium 3.2 mg/dl (1.7-2.4); Potassium 4.6 mmol/L (3.5-5.1); Total Protein 7.1 gm/dl (6.0-8.3)
[2024-07-16 12:54] LABS: INR 1.7 (0.9-1.1); Partial Thromboplastin Ratio 1.2; Partial Thromboplastin Time 33 Seconds (21-31); Prothrombin Time 17.4 Seconds (9.0-12.0); Troponin I High Sensitivity 31.1 pg/ml (0-20)
--- NOTE | 2024-07-16 13:17 | XRay Report ---
XR tibia fibula LT 2V CLINICAL HISTORY: fall COMPARISON: None FINDINGS: There are no fractures within the left tibia or fibula. Left lower leg soft tissue swellin g is present. Talar dome is intact. Posterior and plantar calcaneal spurs are incidentally noted. The re are surgical clips within the medial left lower leg. IMPRESSION: No fractures within the left tibia or fibula. ACT 112: Negative or not required by law. Electronically signed by: Keyon Escobar M.D. 07/16/2024 1:16 PM
--- NOTE | 2024-07-16 13:21 | XRay Report ---
XR chest 1V portable CLINICAL HISTORY: Dyspnea TECHNIQUE: Single frontal radiograph of the chest was obtained. Comparison: Comparison is made to chest radiograph 04/19/2024 FINDINGS: Median sternotomy wires are unchanged. Cardiomegaly is noted. The aortic arch is calcified. The lungs are clear. There is bilateral pleural effusions. IMPRESSION: Trace bilateral pleural effusions are seen. Stable cardiomegaly. ACT 112: Negative or not required by law. Electronically signed by: Seng Melgoza M.D. 07/16/2024 1:19 PM
[2024-07-16] MEDS ORDERED: STAT IV Infusion **Titration per Protocol STA (13:23)
--- NOTE | 2024-07-16 13:32 | History & Physical Report ---
Date of Service July 16, 2024 Assessment & Plan (1) Cardiorenal syndrome: Plan: CKD stage G4/A3 - microvascular disease and impaired renal perfusion associated with severe cardiomyopathy/ HRrEF (15-20%) With EZ and acute CHF - Volume overloaded - Given hypotension, dobutamine on admission - Will defer diuresis at this time given extreme hypotension; will need diuresis in future with blood pressure control - renal US ordered - Cardiology and nephrology consulted (2) EZ (acute kidney injury): Plan: history of diagnosed CKD EZ secondary to cardiorenal syndrome - Recent medication changes; addition of metolazone, Entresto 1 tablet BID -> 1/2 tablet BID, discontinue spironolactone, Jardiance, potassium - Cr increased to 6.36 (baseline 2.5), BUN 90 - bladder scan within normal limits, no postobstructive cause - lactate WNL - hypermagnesemia, mg 3.2 - will likely decrease with future diuresis - hyponatremia, 132 - recent increase in diuretic use, continue to monitor with diuresis - renal U/S ordered - nephrology consulted - BMP recheck in AM - Hold nephrotoxic agents (3) HFrEF (heart failure with reduced ejection fraction): Plan: Patient presents with worsening edema and dyspnea on exertion on Bumex 2 Mg daily and metolazone 2.5 Mg daily (has been take 3 of each daily) - Last echocardiogram on 04/2024 showed a EF 15 to 20%, severe global hypokinesis of left ventricle, left atrium dilation, aortic regurg, mitral regurg, tricuspid regurg - BNP >4700 on admission - CXR showed trace bl pleural effusions and cardiomegaly - troponin elevated at 31.1, repeat pending; likely secondary to demand - Heart healthy, 1000 mL fluid restricted diet - Strict I&O monitoring - Daily weights - significant weight gain recently - promote leg elevation - cardiology consulted - Withhold diuresis at this time given hypotension - monitor on telemetry (4) Hypertension: Plan: Currently hypotensive, took home medications this morning - Will hold home medications to allow for diuresis - dobutamine given on admission - Will defer diuresis at this time given extremely hypotensive - Cardiology consulted (5) Permanent atrial fibrillation: Plan: - EKG on admission showed a fib, rate 90 - recent TSH WNL - Anticoagulated with Eliquis - rate controlled with carvedilol; will hold given hypotension - monitor on Telemetry (6) Diabetes mellitus type 2 in nonobese: Plan: - Patient stated he no longer takes metformin or Jardiance - Most recent A1C 6.5 - SSI with target BSG range 110-140mg/dL, CF 50, carb ratio 15 - will defer Basal insulin at this time - adjust regimen as needed Plan Chronic stable diagnoses: Anemia - continue iron and B12 supplements HLD - continue statin, hold ASA in setting of EZ VTE ppx: continue home Eliquis Diet: diabetes, heart healthy, fluid restriction 1000 ml Code status: DNR, but can intubate Dispo: PCU/tele Admission and Anticipated Discharge Date Admission Date: 07/16/24 History of Present Illness Chief Complaint: Edema Primary Care Provider: Demond Garcia DO Patient is a 78-year-old male with a past medical history of reduced ejection fraction CHF, A-fib, CKD, hypertension, hyperlipidemia, diabetes. Who presents today due to ongoing edema over the past few months. He stated that he has had worsening lower extremity edema since November. He has also had dyspnea on exertion since November. He denies orthopnea and dyspnea at rest. He takes Bumex and recently added metolazone. He is to take 1 pill a day and increases as needed. He has been taking 3 pills of each per day. He has had a lot of medication changes recently. He recently decreased his Entresto to half a tablet, and discontinued spironolactone, potassium, and Jardiance. He took all of his home medications this morning. He had a recent fall; bruising to right foot. ROS is positive for lightheadedness (chronic when standing), cough that began a few months ago, and melena due to iron. Patient denies headache, vision changes, dyspnea, chest pain, abdominal pain, nausea, vomiting, diarrhea, constipation, dysuria, hematuria, numbness, tingling. He denies past history of cancer and VTE. He does not use oxygen at baseline. He took all of his home medications this morning. He wishes to be intubated if needed, but no CPR in the event of cardiac arrest. Allergies Allergy/AdvReac Type Severity Reaction Status Date / Time ramipril Allergy Severe TONGUE Verified 07/16/24 13:44 SWELLS Home Medications Medication Instructions Recorded Confirmed Type cyanocobalamin (vitamin B-12) 1,000 mcg PO DAILY #90 tabs 04/22/19 07/16/24 History 1,000 mcg tablet aspirin 81 mg tablet,delayed 81 mg PO DAILY 11/28/23 07/16/24 History release multivitamin with minerals 1 tab PO DAILY 11/28/23 07/16/24 History ascorbate calcium (vitamin C) 500 500 mg PO DAILY 01/31/24 07/16/24 History mg tablet cholecalciferol (vitamin D3) 25 25 mcg PO DAILY 01/31/24 07/16/24 History mcg (1,000 unit) capsule atorvastatin 40 mg tablet 40 mg PO DAILY #90 tabs 04/17/24 07/16/24 Rx ferrous sulfate 325 mg (65 mg 325 mg PO BID 04/19/24 07/16/24 History iron) tablet (iron) carvedilol 25 mg tablet 25 mg PO BID #180 tabs 05/02/24 07/16/24 Rx sacubitril 49 mg-valsartan 51 mg 0.5 tab PO BID #60 tabs 06/23/24 07/16/24 Rx tablet (Entresto) apixaban 5 mg tablet (Eliquis) 5 mg PO BID #180 tabs 06/25/24 07/16/24 Rx bumetanide 2 mg tablet 2 mg PO DAILY #60 tabs 07/03/24 07/16/24 Rx metolazone 2.5 mg tablet 2.5 mg PO DAILY #90 tabs 07/11/24 07/16/24 Rx Past Med/Surg History Problem List (Updated 07/16/24 @ 17:58 by Kendrick Dee MD) CHF (congestive heart failure) (Acute) EZ (acute kidney injury) (Acute) A-fib (Acute) Chronic kidney disease, stage 4 (severe) Heart failure, systolic, with acute decompensation EZ (acute kidney injury) Cardiorenal syndrome (Acute) Hyponatremia Hyperkalemia HFrEF (heart failure with reduced ejection fraction) Hypertension (Chronic) CAD (coronary artery disease) Arteriosclerotic coronary artery disease (Chronic) Permanent atrial fibrillation (Acute) Chronic anticoagulation (Acute) Cardiomyopathy Hx of CABG (~1989) Valvular heart disease Diabetes mellitus type 2 in nonobese Dyslipidemia (Chronic) Anemia Vitamin B12 deficiency Vitamin D deficiency Medical History Stable angina Aortic valve sclerosis Metabolic encephalopathy Elevated prostate specific antigen (PSA) 10/2022 Declines further evaluation, no further labs. 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 Beliefs That Will Affect Care: None marital status: Current Living Situation: Spouse and Family Current Living Situation Comment: daughter also lives with patient current occupational status: retired How many Children do You have: 3 Feels Safe at Home: Yes Childhood Exposure to Second-Hand Smoke: No Diet: regular caffeine: Yes Dental Care, Regularly: No Physical Activity Frequency: Daily Seatbelt Use: always Sunscreen Use: No Assistive Devices: Cane, Denture - Upper, Glasses and Walker Review of Systems Review of Systems: see HPI Physical Exam Physical Exam: The patient is awake, alert and oriented 3, well developed and well nourished, normocephalic and atraumatic, in no acute distress. Non-toxic appearing. HEENT- EOMI, mucous membranes moist. Hearing grossly intact. Heart-normal S1 and S2. No murmurs, rubs or gallops. Lungs-decreased bilaterally, no respiratory distress, no accessory muscle use. Abdomen-normal bowel sounds and soft. Mild ascites noted. Non-tender. Extremities- no clubbing. Ecchymosis to right foot. +3 pitting edema bilateral LE. Psychiatric-normal affect. Results & Data Results & Data Vital Signs (Past 12 Hours) Vital Signs Temp Pulse Pulse Resp BP BP Pulse Ox 07/16/24 13:06 95 H 20 83/48 L 99 07/16/24 12:51 90 07/16/24 12:30 88 20 92/54 L 99 07/16/24 12:23 84/49 L 07/16/24 12:11 85 16 98 07/16/24 11:45 36.3 C L 91 H 14 77/49 L 98 O2 Del Method 07/16/24 13:06 Room Air 07/16/24 12:51 07/16/24 12:30 Room Air 07/16/24 12:23 07/16/24 12:11 Room Air 07/16/24 11:45 Room Air Laboratory Results reviewed CBC, PT/INR, CMP, lactate, mg, BNP Code Status & VTE Plan Code Status conditional - DNR, but can intubate VTE Prophylaxis Plan VTE Prophylaxis will be ordered: Yes Supervising Physician Co-Signing Physician Notes I personally saw and examined the patient. I independently reviewed the labs, EKG, imaging, problem list, medication list, past medical history and family history. I verified all diehl points and agree with Nela Morales PA-C with the following exceptions and/or additions: 78 year old male presents to the ER with weight gain and shortness of breath. Known HFrEF and CKD. O/E HS increased rate, irregular rhythm, no murmurs, Chest bibasal crackles, Abdo distended, soft non tender, b/l pedal 2+ b/l equal A/P Cardiorenal syndrome - start dobutamine 5mcg/kg/min, once BP improves can start diuresis with Bumex. Consult cardiology and nephrology for ongoing help with management. Hold carvedilol and Entresto. Damian catheter inserted for accurate I&Os Acute on chronic HFrEF - as above EZ - no obstructive cause on renal US A. fib - hold Eliquis due to EZ PG Care Time/CCT Total # of Minutes Spent Total Time Spent with Patient: Total time spent is greater than 50% in coordination of care (as documented) at patient's floor/unit and/or counseling patient: Coding Level of Care Code 54492 INT INP/OBS CARE 3/75MIN Diagnoses Cardiorenal syndrome I13.10 EZ (acute kidney injury) N17.9 HFrEF (heart failure with reduced ejection fraction) I50.20 Hypertension I10 Permanent atrial fibrillation I48.2 Diabetes mellitus type 2 in nonobese E11.9
[2024-07-16] MEDS: DOBUTamine / D5W 1,000 MG/250 ML BAG IV SCH (14:07)
--- NOTE | 2024-07-16 14:36 | Electrocardiogram Report ---
Test Reason : Blood Pressure : */* mmHG Vent. Rate : 90 BPM Atrial Rate : 96 BPM P-R Int : * ms QRS Dur : 112 ms QT Int : 384 ms P-R-T Axes : * -66 184 degrees QTcB Int : 469 ms Atrial fibrillation with PVC versus aberrant conduction Left axis deviation T wave abnormality, consider lateral ischemia Poor R wave progression, consider anterior IL vs. lead placement vs. LVH Abnormal ECG When compared with ECG of 19-Apr-2024 09:32, Nonspecific T wave abnormality now evident in Inferior leads Confirmed by Jl Guardado ([id number]) on 07/16/2024 2:35:41 PM Referred By: REFERRED SELF Confirmed By: Jl Guardado
[2024-07-16 15:26] LABS: Appearance Urine Clear (Clear); Bacteria Urine Automated None Seen (None Seen); Bilirubin Urine Negative (Negative); Blood Urine Negative (Negative); Color Urine Dark Yellow; Epithelial Cell Urine Auto 0-2 /hpf (0-2); Glucose Urine UA Negative (Negative); Ketones Urine Trace (Negative); Leukocyte Esterase Urine Trace (Negative); Nitrite Urine Negative (Negative); Protein Urine 1+ (Negative); Specific Gravity Urine 1.014 (1.000-1.030); Urobilinogen Urine Negative (Negative)
[2024-07-16 15:28] LABS: Cast Urine Automated 0-2 /lpf (0-2)
[2024-07-16] MEDS: FUROSEMIDE 40 MG/4 ML VIAL IV ONE (15:43)
[2024-07-16] MEDS: BUMETANIDE 2 MG in SYRINGE 0 ML IV ONE ×2 (15:43)
--- NOTE | 2024-07-16 16:14 | Cardiology Consultation ---
Date of Consultation July 16, 2024 Assessment & Plan (1) Cardiorenal syndrome: (2) Heart failure, systolic, with acute decompensation: (3) CAD (coronary artery disease): (4) Permanent atrial fibrillation: (5) Valvular heart disease: Plan 1. Cardiorenal syndrome: I think this is an accurate description of his presentation. Severely reduced LV systolic function with worsening renal function despite escalating doses of diuretics. He has not been able to effect good diuresis. At this point we elected to start inotropic medication. He may also need some vasopressors if his blood pressure stays low. Hopefully with better perfusion and improve cardiac output we can effective diuresis. 2. Acute decompensated heart failure with reduced ejection fraction: Severely reduced LV systolic function. Unclear etiology. This did not appear to be ischemic based on his recent myocardial perfusion study. He has not had symptoms of ischemia. He was on an aggressive medical regimen, but many medications will need to be discontinued due to his severe renal dysfunction and hypotension. 3. Cardiomyopathy: This appears to be ischemic based on his perfusion study. No reversibility, but a large infarct. Not currently candidate for aggressive treatment due to his renal dysfunction and hypotension. It is unclear if his LV function will recover enough for him to maintain euvolemia. We may be in a palliative situation. We may need to entertain the option of more advanced therapies such as chronic inotrope infusion or mechanical support. 4. Atrial fibrillation: Permanent. Few symptoms. He will have some higher rates now that he is decompensated and on inotropes. Will continue systemic anticoagulation. 5. Coronary artery disease: No reversibility on his recent perfusion imaging. No symptoms of ischemia. He can continue his aspirin and atorvastatin. Aspirin could also be held and lieu of systemic anticoagulation if is any concern about its effect on renal function. 6. Valvular heart disease: He has an element of mitral and aortic regurgitatio n. Both mild. Not contributing significantly to his current situation. 7. Pulmonary hypertension: Related to his decompensated heart failure. Carvedilol, Entresto and Jardiance discontinued Will concentrate on inotropic support with dobutamine and possibly dopamine if blood pressures drop. Doses can be titrated to affect a diuresis with intravenous Lasix. In the absence of her response we will need to consider dialysis or transfer for advanced heart failure therapies. Prognosis poor. History of Present Illness Reason for Consultation: Decompensated heart failure Requesting Physician: Ashlie Attending Physician: Ashlie History of Present Illness The patient is a 78-year-old gentleman with a history of coronary disease status post surgical revascularization quite remotely in 1989. He is known to have permanent atrial fibrillation and a history of hypertension. More recently he has been struggling with progressively worsening left ventricular systolic function. He was admitted in April 2024 with decompensated heart failure. His medical regimen was intensified around that time and attempt to be made to attenuate his symptoms. However, over several weeks he has been experiencing progressive edema and an inability to affect good diuresis. His medical regimen has been changed and his diuretics intensified. In fact, he has been taking escalating doses of diuretic on his own recently. Due to an inability to lose weight, effective diuresis and due to persistent edema he was prompted to seek medical attention by his family members. The patient did not report limiting dyspnea. He is mobile around the home. He does very little activity and has some mild dyspnea at times. Activity seem to be more limited by fatigue and lower extremity edema. He did not endorse symptoms of dizziness or lightheadedness. No presyncope or syncope. He does appear to be aware of some palpitations at times, but nothing new. He does report orthopnea. He reports adhering to a low-sodium diet. Allergies Allergy/AdvReac Type Severity Reaction Status Date / Time ramipril Allergy Severe TONGUE Verified 07/16/24 13:44 [facility] Medications Medication Instructions Recorded Confirmed Type cyanocobalamin (vitamin B-12) 1,000 mcg PO DAILY #90 tabs 04/22/19 07/16/24 History 1,000 mcg tablet aspirin 81 mg tablet,delayed 81 mg PO DAILY 11/28/23 07/16/24 History release multivitamin with minerals 1 tab PO DAILY 11/28/23 07/16/24 History ascorbate calcium (vitamin C) 500 500 mg PO DAILY 01/31/24 07/16/24 History mg tablet cholecalciferol (vitamin D3) 25 25 mcg PO DAILY 01/31/24 07/16/24 History mcg (1,000 unit) capsule atorvastatin 40 mg tablet 40 mg PO DAILY #90 tabs 04/17/24 07/16/24 Rx ferrous sulfate 325 mg (65 mg 325 mg PO BID 04/19/24 07/16/24 History iron) tablet (iron) carvedilol 25 mg tablet 25 mg PO BID #180 tabs 05/02/24 07/16/24 Rx sacubitril 49 mg-valsartan 51 mg 0.5 tab PO BID #60 tabs 06/23/24 07/16/24 Rx tablet (Entresto) apixaban 5 mg tablet (Eliquis) 5 mg PO BID #180 tabs 06/25/24 07/16/24 Rx bumetanide 2 mg tablet 2 mg PO DAILY #60 tabs 07/03/24 07/16/24 Rx metolazone 2.5 mg tablet 2.5 mg PO DAILY #90 tabs 07/11/24 07/16/24 Rx Patient History Medical History (Updated 07/16/24 @ 16:06 by Jl Guardado MD) Stable angina Aortic valve sclerosis Metabolic encephalopathy Elevated prostate specific antigen (PSA) 10/2022 Declines further evaluation, no further labs. Heart aneurysm Sick sinus syndrome Family History Unknown Coronary heart disease Sister Diabetes Brother Cardiac disorder Denies family history of Ovarian cancer Prostate cancer Breast cancer Lung cancer Colorectal cancer Social History Smoking Status: Former smoker Tobacco Type: Declines Age Started Using Tobacco: 18; Age Quit Using Tobacco: 43; Second Hand Exposure: No; Do You Dip or Chew Tobacco: No; Hx Alcohol Use: No Hx Substance Use: No Preferred Language: Romanian Communication Ability: Effective Visual Impairment: Limited Hearing Ability: Normal Consultant Nurse Required: No Beliefs That Will Affect Care: None marital status: Current Living Situation: Spouse Current Living Situation Comment: daughter also lives with patient current occupational status: retired How many Children do You have: 3 Feels Safe at Home: Yes Childhood Exposure to Second-Hand Smoke: No Diet: regular caffeine: Yes Dental Care, Regularly: No Physical Activity Frequency: Daily Seatbelt Use: always Sunscreen Use: No Assistive Devices: Cane Review of Systems Review of Systems: Per HPI. No recent fevers or chills. Good appetite. Tolerating regular diet. Physical Exam Physical Exam: The patient is alert and oriented. Mood and affect appeared normal. He answered all questions appropriately. HEENT: Pupils are equal and reactive to light and accommodation. Extraocular movements are intact. The sclerae are anicteric. Neuro: Cranial nerves intact Lungs: Distant breath sounds with some crackles to the mid lung perry bilaterally. No expiratory wheezing. Normal respiratory effort. Cardiac: Heart demonstrates an irregular rhythm. Tachycardic. No murmurs. Chest: Well-healed sternotomy scar. Abdomen: Distended abdomen with notable edema. Pulses: The patient has palpable radial pulses bilaterally that are equal in intensity Extremities: There was no evidence of hypoperfusion. There is no cyanosis or clubbing. Tense edema in both lower extremities. Venous stasis ulcers noted. Some mild erythema. Skin: I did not appreciate any rashes on examination today. Results & Data Vital Signs (Past 12 Hours) Vital Signs Temp Pulse Pulse Resp BP BP Pulse Ox 07/16/24 14:57 94 H 20 89/57 L 98 07/16/24 14:42 95 H 17 98 07/16/24 14:24 92 H 17 100 07/16/24 14:18 98 H 14 100 07/16/24 14:16 89/62 L 07/16/24 14:16 89/62 L 07/16/24 14:16 89/62 L 07/16/24 14:06 96 H 17 98 07/16/24 13:51 93 H 16 98 07/16/24 13:45 75/50 L 07/16/24 13:45 75/50 L 07/16/24 13:45 75/50 L 07/16/24 13:39 102 H 17 99 07/16/24 13:30 89 19 99 07/16/24 13:30 74/55 L 07/16/24 13:30 74/55 L 07/16/24 13:30 74/55 L 07/16/24 13:18 89 21 99 07/16/24 13:16 82/51 L 07/16/24 13:16 82/51 L 07/16/24 13:06 95 H 20 83/48 L 99 07/16/24 13:04 83/48 L 07/16/24 13:04 83/48 L 07/16/24 13:01 73/42 L 07/16/24 12:57 91 H 18 98 07/16/24 12:51 90 07/16/24 12:49 76/53 L 07/16/24 12:30 88 20 92/54 L 99 07/16/24 12:23 84/49 L 07/16/24 12:11 85 16 98 07/16/24 11:45 36.3 C L 91 H 14 77/49 L 98 O2 Del Method 07/16/24 14:57 Room Air 07/16/24 14:42 07/16/24 14:24 07/16/24 14:18 07/16/24 14:16 07/16/24 14:16 07/16/24 14:16 07/16/24 14:06 07/16/24 13:51 07/16/24 13:45 07/16/24 13:45 07/16/24 13:45 07/16/24 13:39 07/16/24 13:30 07/16/24 13:30 07/16/24 13:30 07/16/24 13:30 07/16/24 13:18 07/16/24 13:16 07/16/24 13:16 07/16/24 13:06 Room Air 07/16/24 13:04 07/16/24 13:04 07/16/24 13:01 07/16/24 12:57 07/16/24 12:51 07/16/24 12:49 07/16/24 12:30 Room Air 07/16/24 12:23 07/16/24 12:11 Room Air 07/16/24 11:45 Room Air Laboratory Results Abnormal Lab Results 07/16/24 07/16/24 07/16/24 12:10 13:54 14:34 WBC 2.93 L RBC 3.26 L Hgb 9.4 L Hct 28.5 L MCV 87.4 MCH 28.8 MCHC 33.0 RDW Std Deviation 53.9 H RDW Coeff of Abbey 16.8 H Plt Count 103 L MPV 11.9 Immature Gran % (Auto) 0.0 Neut % (Auto) 74.2 Lymph % (Auto) 14.3 [place]royo % (Auto) 10.2 Eos % (Auto) 1.0 Baso % (Auto) 0.3 Neut # (Auto) 2.17 Lymph # (Auto) 0.42 L [place]o # (Auto) 0.30 Eos # (Auto) 0.03 Baso # (Auto) 0.01 Immature Gran # (Auto) 0.00 L PT 17.4 H INR 1.7 H APTT 33 H PTT Ratio 1.2 Sodium 132 L Potassium 4.6 Chloride 95 L Carbon Dioxide 25 Anion Gap 12 H BUN 90 H Creatinine 6.36 H* Est Cr Clr Drug Dosing 10.8 eGFR 8.42 BUN/Creatinine Ratio 14.2 Glucose 160 H Lactate 1.6 Calcium 9.4 Magnesium 3.2 H Total Bilirubin 1.1 H AST 15 ALT 7 Alkaline Phosphatase 51 Troponin I High Sens 31.1 H 26.7 H B-Natriuretic Peptide > 4700 H Total Protein 7.1 Albumin 4.1 Globulin 3.0 Albumin/Globulin Ratio 1.4 Urine Color Dark Yellow Urine Appearance Clear Urine pH 5.0 Ur Specific [place] 1.014 Urine Protein 1+ H Urine Glucose (UA) Negative Urine Ketones Trace H Urine Blood Negative Urine Nitrite Negative Urine Bilirubin Negative Urine Urobilinogen Negative Ur Leukocyte Esterase Trace H Urine WBC (Auto) 6-10 H Urine RBC (Auto) 3-5 H U Hyaline Cast (Auto) 0-2 U Epithel Cells (Auto) 0-2 Urine Bacteria (Auto) None Seen Diagnostic Findings Echocardiogram 04/19/2024: Severely reduced LV systolic function with ejection fraction of 15 to 20%. Severe global hypokinesis. Moderate dilation of left atrium. Mild aortic regurgitation. Moderate mitral regurgitation. Elevated pulmonary pressures estimated at 50 to 60 mmHg. Cardiac perfusion study 04/21/2024: Abnormal with evidence of old infarct involving the anterior, distal anterolateral, anteroseptal, distal inferior and apical myocardium. Minimal reversibility. Gated ejection fraction 22% ECG Additional Comments: EKG demonstrated atrial fibrillation with controlled ventricular response. Apparent conduction. Poor R wave progression in the precordial leads. PG Care Time/CCT Total # of Minutes Spent Total Time Spent with Patient: Total time spent is greater than 50% in coordination of care (as documented) at patient's floor/unit and/or counseling patient: Coding Level of Care Code 63003 INT INP/OBS CARE MIN Diagnoses Cardiorenal syndrome I13.10 Heart failure, systolic, with acute decompensation I50.23 CAD (coronary artery disease) I25.10 Permanent atrial fibrillation I48.2 Valvular heart disease I38
--- NOTE | 2024-07-16 16:40 | Nephrology Consultation ---
Date of Consultation July 16, 2024 Assessment & Plan (1) EZ (acute kidney injury): * EZ due to cardiorenal syndrome. Agree with trial of dobutamine therapy * Monitor BMP, UO (2) Chronic kidney disease, stage 4 (severe): * CKD stage G4/A3 (advanced impairment). Baseline creatinine has been 2.0. Outpatient evaluation has revealed a benign urine sediment. UACR 0.3. 8/24 renal ultrasound R11 0.4 cm, L10 0.5 cm. Moderate cortical thinning bilaterally. Thickened bladder wall consistent with NAPIER. Renal impairment is on the basis of microvascular disease and impaired renal perfusion associated with severe cardiomyopathy. (3) Heart failure, systolic, with acute decompensation: * Await cardiology input * If no improvement with inotropic therapy may need to consider dialysis. Patient wishes to discuss this with his family. He is uncertain whether outpatient dialysis is consistent with his perceived quality of life. Dialysis may be difficult due to his advanced cardiomyopathy and relative hypotension. History of Present Illness Reason for Consultation: EZ/CKD History of Present Illness Mr. Brody is a 78-year-old white male who is seen at the request of the [facility] hospitalist service for evaluation of EZ/CKD. Information for the HPI is obtained from direct patient interview and review of the EMR HPI summarized as follows: Mr. Brody has CKD stage G4/A3 (advanced impairment). Baseline creatinine has been 2.0. Outpatient evaluation has revealed a benign urine sediment. UACR 0.3. 24 renal ultrasound R11 0.4 cm, L10 0.5 cm. Moderate cortical thinning bilaterally. Thickened bladder wall consistent with NAPIER. Renal impairment is on the basis of microvascular disease and impaired renal perfusion associated with severe cardiomyopathy. Mr. Brody's medical history is also significant for hypertension, chronic atrial fibrillation, hyperlipidemia and ischemic cardiomyopathy. He underwent CABG x 2 ([facility] [place] 1989). Echocardiogram 05/10 revealed LVEF 15-20%. Mr. Brody has been followed closely in the CHF clinic. He has been managed with a combination of carvedilol, Jardiance and Entresto. Spironolactone was discontinued due to CKD. His target dry weight has been 166 pounds. Mr. Brody had been taking furosemide 80 mg daily. This has been titrated up by CHF clinic. Mr. Brody was seen in the nephrology office 07/10/2024. It was noted that he had progressive lower extremity swelling and decreased exercise tolerance. Weight had increased to 198 pounds. Admission to the hospital for IV diuretic therapy was discussed. Patient wished to avoid hospitalization. Therefore outpatient management was pursued. Furosemide was changed to bumetanide 2 mg p.o. 3 times daily and metolazone 2.5 mg once each morning was added. Despite these measures Mr. Brody reports worsening lower extremity swelling and exercise tolerance. He presented to the emergency department today where his weight was noted to have increased to 204 pounds, creatinine has risen to 6.3 and SBP was low at 74 mmHg. Mr. Brody has been admitted by the hospitalist service and started on IV dobutamine therapy. Consultation with cardiology has been requested due to cardiorenal syndrome. Allergies Allergy/AdvReac Type Severity Reaction Status Date / Time ramipril Allergy Severe TONGUE Verified 07/16/24 13:44 SWELLS Home Medications Medication Instructions Recorded Confirmed Type cyanocobalamin (vitamin B-12) 1,000 mcg PO DAILY #90 tabs 04/22/19 07/16/24 History 1,000 mcg tablet aspirin 81 mg tablet,delayed 81 mg PO DAILY 11/28/23 07/16/24 History release multivitamin with minerals 1 tab PO DAILY 11/28/23 07/16/24 History ascorbate calcium (vitamin C) 500 500 mg PO DAILY 01/31/24 07/16/24 History mg tablet cholecalciferol (vitamin D3) 25 25 mcg PO DAILY 01/31/24 07/16/24 History mcg (1,000 unit) capsule atorvastatin 40 mg tablet 40 mg PO DAILY #90 tabs 04/17/24 07/16/24 Rx ferrous sulfate 325 mg (65 mg 325 mg PO BID 04/19/24 07/16/24 History iron) tablet (iron) carvedilol 25 mg tablet 25 mg PO BID #180 tabs 05/02/24 07/16/24 Rx sacubitril 49 mg-valsartan 51 mg 0.5 tab PO BID #60 tabs 06/23/24 07/16/24 Rx tablet (Entresto) apixaban 5 mg tablet (Eliquis) 5 mg PO BID #180 tabs 06/25/24 07/16/24 Rx bumetanide 2 mg tablet 2 mg PO DAILY #60 tabs 07/03/24 07/16/24 Rx metolazone 2.5 mg tablet 2.5 mg PO DAILY #90 tabs 07/11/24 07/16/24 Rx Patient History Medical History Stable angina Aortic valve sclerosis Metabolic encephalopathy Elevated prostate specific antigen (PSA) 10/2022 Declines further evaluation, no further labs. 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 Beliefs That Will Affect Care: None marital status: Current Living Situation: Spouse Current Living Situation Comment: daughter also lives with patient current occupational status: retired How many Children do You have: 3 Feels Safe at Home: Yes Childhood Exposure to Second-Hand Smoke: No Diet: regular caffeine: Yes Dental Care, Regularly: No Physical Activity Frequency: Daily Seatbelt Use: always Sunscreen Use: No Assistive Devices: Cane Review of Systems Constitutional: no fever Eyes: no problem reported Ear, Nose, Mouth, Throat: no problem reported Respiratory: + dyspnea on exertion Cardiovascular: no chest pain Gastrointestinal: no nausea, no vomiting and no diarrhea/loose stools Genitourinary: no dysuria, no difficulty urinating or no flank pain Integumentary: no rash Neurologic: no problem reported Physical Exam Constitutional: + frail appearing; not in distress Eyes: PERRL, conjunctivae normal, anicteric sclerae ENMT: external ear and nose normal, oropharynx normal Neck: trachea midline, no thyromegaly Respiratory: normal respiratory effort, lungs clear to auscultation Cardiovascular: Rate/Rhythm: regular rate, + tachycardic and + irregularly irregular Extremities: + edema (2+ LE swelling) Gastrointestinal (Abdomen): normal bowel sounds, soft, nontender, no hepatosplenomegaly Neurologic: Speech / Cognition: normal speech and normal cognition Results & Data Vital Signs (Past 12 Hours) Vital Signs Temp Pulse Pulse Resp BP BP Pulse Ox 07/16/24 16:00 100 H 18 88/65 L 98 07/16/24 15:45 102 H 18 97/68 L 98 07/16/24 14:57 94 H 20 89/57 L 98 07/16/24 14:42 95 H 17 98 07/16/24 14:24 92 H 17 100 07/16/24 14:18 98 H 14 100 07/16/24 14:16 89/62 L 07/16/24 14:16 89/62 L 07/16/24 14:16 89/62 L 07/16/24 14:06 96 H 17 98 07/16/24 13:51 93 H 16 98 07/16/24 13:45 75/50 L 07/16/24 13:45 75/50 L 07/16/24 13:45 75/50 L 07/16/24 13:39 102 H 17 99 07/16/24 13:30 89 19 99 07/16/24 13:30 74/55 L 07/16/24 13:30 74/55 L 07/16/24 13:30 74/55 L 07/16/24 13:18 89 21 99 07/16/24 13:16 82/51 L 07/16/24 13:16 82/51 L 07/16/24 13:06 95 H 20 83/48 L 99 07/16/24 13:04 83/48 L 07/16/24 13:04 83/48 L 07/16/24 13:01 73/42 L 07/16/24 12:57 91 H 18 98 07/16/24 12:51 90 07/16/24 12:49 76/53 L 07/16/24 12:30 88 20 92/54 L 99 07/16/24 12:23 84/49 L 07/16/24 12:11 85 16 98 07/16/24 11:45 36.3 C L 91 H 14 77/49 L 98 O2 Del Method 07/16/24 16:00 Room Air 07/16/24 15:45 07/16/24 14:57 Room Air 07/16/24 14:42 07/16/24 14:24 07/16/24 14:18 07/16/24 14:16 07/16/24 14:16 07/16/24 14:16 07/16/24 14:06 07/16/24 13:51 07/16/24 13:45 07/16/24 13:45 07/16/24 13:45 07/16/24 13:39 07/16/24 13:30 07/16/24 13:30 07/16/24 13:30 07/16/24 13:30 07/16/24 13:18 07/16/24 13:16 07/16/24 13:16 07/16/24 13:06 Room Air 07/16/24 13:04 07/16/24 13:04 07/16/24 13:01 07/16/24 12:57 07/16/24 12:51 07/16/24 12:49 07/16/24 12:30 Room Air 07/16/24 12:23 07/16/24 12:11 Room Air 07/16/24 11:45 Room Air Laboratory Results Laboratory Results WBC 2.93 K/ul (4.8-10.8) L 07/16/24 12:10 RBC 3.26 M/uL (4.70-6.10) L 07/16/24 12:10 Hgb 9.4 g/dl (14.0-18.0) L 07/16/24 12:10 Hct 28.5 % (42.0-52.0) L 07/16/24 12:10 MCV 87.4 fL (80.0-100.0) 07/16/24 12:10 MCH 28.8 pg (25.0-34.0) 07/16/24 12:10 MCHC 33.0 g/dL (32.0-36.0) 07/16/24 12:10 RDW Std Deviation 53.9 fL (36.4-46.3) H 07/16/24 12:10 RDW Coeff of Abbey 16.8 % (11.5-14.5) H 07/16/24 12:10 Plt Count 103 K/uL (130-400) L 07/16/24 12:10 MPV 11.9 fL (9.4-12.4) 07/16/24 12:10 Immature Gran % (Auto) 0.0 % 07/16/24 12:10 Neut % (Auto) 74.2 % 07/16/24 12:10 Lymph % (Auto) 14.3 % 07/16/24 12:10 [place] % (Auto) 10.2 % 07/16/24 12:10 Eos % (Auto) 1.0 % 07/16/24 12:10 Baso % (Auto) 0.3 % 07/16/24 12:10 Neut # (Auto) 2.17 K/uL (1.40-6.50) 07/16/24 12:10 Lymph # (Auto) 0.42 K/uL (1.20-3.40) L 07/16/24 12:10 Howard # (Auto) 0.30 K/uL (0.11-0.59) 07/16/24 12:10 Eos # (Auto) 0.03 K/uL (0.00-0.50) 07/16/24 12:10 Baso # (Auto) 0.01 K/uL (0.00-0.20) 07/16/24 12:10 Immature Gran # (Auto) 0.00 K/uL (0.01-0.20) L 07/16/24 12:10 PT 17.4 Seconds (9.0-12.0) H 07/16/24 12:10 INR 1.7 (0.9-1.1) H 07/16/24 12:10 APTT 33 Seconds (21-31) H 07/16/24 12:10 PTT Ratio 1.2 07/16/24 12:10 Sodium 132 mmol/L (136-145) L 07/16/24 12:10 Potassium 4.6 mmol/L (3.5-5.1) 07/16/24 12:10 Chloride 95 mmol/L (98-107) L 07/16/24 12:10 Carbon Dioxide 25 mmol/L (21-32) 07/16/24 12:10 Anion Gap 12 (3-11) H 07/16/24 12:10 BUN 90 mg/dl (6-23) H 07/16/24 12:10 Creatinine 6.36 mg/dl (0.6-1.4) H* 07/16/24 12:10 Est Cr Clr Drug Dosing 10.8 ml/min 07/16/24 12:10 eGFR 8.42 07/16/24 12:10 BUN/Creatinine Ratio 14.2 (10-20) 07/16/24 12:10 Glucose 160 mg/dl (70-99(Fasting)) H 07/16/24 12:10 Lactate 1.6 mmol/L (0.4-2.0) 07/16/24 13:54 Calcium 9.4 mg/dl (8.6-10.3) 07/16/24 12:10 Magnesium 3.2 mg/dl (1.7-2.4) H 07/16/24 12:10 Total Bilirubin 1.1 mg/dl (0.2-1.0) H 07/16/24 12:10 AST 15 U/L (13-39) 07/16/24 12:10 ALT 7 U/L (7-52) 07/16/24 12:10 Alkaline Phosphatase 51 U/L (34-104) 07/16/24 12:10 Troponin I High Sens 26.7 pg/ml (0-20) H 07/16/24 13:54 B-Natriuretic Peptide > 4700 pg/ml (0-100) H 07/16/24 12:10 Total Protein 7.1 gm/dl (6.0-8.3) 07/16/24 12:10 Albumin 4.1 gm/dl (3.4-5.0) 07/16/24 12:10 Globulin 3.0 gm/dl (2.5-4.0) 07/16/24 12:10 Albumin/Globulin Ratio 1.4 (0.9-2) 07/16/24 12:10 Urine Color Dark Yellow 07/16/24 14:34 Urine Appearance Clear (Clear) 07/16/24 14:34 Urine pH 5.0 (4.5-7.5) 07/16/24 14:34 Ur Specific [place] 1.014 (1.000-1.030) 07/16/24 14:34 Urine Protein 1+ (Negative) H 07/16/24 14:34 Urine Glucose (UA) Negative (Negative) 07/16/24 14:34 Urine Ketones Trace (Negative) H 07/16/24 14:34 Urine Blood Negative (Negative) 07/16/24 14:34 Urine Nitrite Negative (Negative) 07/16/24 14:34 Urine Bilirubin Negative (Negative) 07/16/24 14:34 Urine Urobilinogen Negative (Negative) 07/16/24 14:34 Ur Leukocyte Esterase Trace (Negative) H 07/16/24 14:34 Urine WBC (Auto) 6-10 /hpf (0-5) H 07/16/24 14:34 Urine RBC (Auto) 3-5 /hpf (0-2) H 07/16/24 14:34 U Hyaline Cast (Auto) 0-2 /lpf (0-2) 07/16/24 14:34 U Epithel Cells (Auto) 0-2 /hpf (0-2) 07/16/24 14:34 Urine Bacteria (Auto) None Seen (None Seen) 07/16/24 14:34 Impressions Chest X-Ray 07/16/24 12:00 XR chest 1V portable CLINICAL HISTORY: Dyspnea TECHNIQUE: Single frontal radiograph of the chest was obtained. Comparison: Comparison is made to chest radiograph 04/19/2024 FINDINGS: Median sternotomy wires are unchanged. Cardiomegaly is noted. The aortic arch is calcified. The lungs are clear. There is bilateral pleural effusions. IMPRESSION: Trace bilateral pleural effusions are seen. Stable cardiomegaly. ACT 112: Negative or not required by law. Electronically signed by: Seng Melgoza M.D. 07/16/2024 1:19 PM Tibia/Fibula X-Ray 07/16/24 12:00 XR tibia fibula LT 2V CLINICAL HISTORY: fall COMPARISON: None FINDINGS: There are no fractures within the left tibia or fibula. Left lower leg soft tissue swelling is present. Talar dome is intact. Posterior and plantar calcaneal spurs are incidentally noted. There are surgical clips within the medial left lower leg. IMPRESSION: No fractures within the left tibia or fibula. ACT 112: Negative or not required by law. Electronically signed by: Keyon Escobar M.D. 07/16/2024 1:16 PM PG Care Time/CCT Total # of Minutes Spent Total Time Spent with Patient: Total time spent is greater than 50% in coordination of care (as documented) at patient's floor/unit and/or counseling patient: Coding Level of Care Code 47552 IN/OBS CONSULT LVL 5,80M Diagnoses EZ (acute kidney injury) N17.9 Chronic kidney disease, stage 4 (severe) N18.4 Heart failure, systolic, with acute decompensation I50.23
--- NOTE | 2024-07-16 17:37 | Ultrasound Report ---
RENAL ULTRASOUND CLINICAL HISTORY: Acute kidney injury. COMPARISON STUDY: Renal ultrasound April 20, 2024. TECHNIQUE: Sonography of the kidneys and the urinary bladder was performed. FINDINGS: The right kidney measures 9.9 cm in maximal dimension and the left measures 11.1 cm. There is moderate bilateral renal cortical thinning and the kidneys are echogenic. Multiple bilateral renal lesions favor cysts although the left kidney is partially obscured. A small amount of abdominal and pelvic ascites is noted. There is slight nodularity of the liver surface. The bladder is decompressed and contains a Damian balloon. Bladder wall thickening was shown on prior exam. IMPRESSION: 1. No hydronephrosis. 2. Moderate bilateral renal cortical thinning. Echogenic kidneys. 3. Small amount of abdominal and pelvic ascites. 4. Bladder wall thickening, likely chronic. ACT 112: Negative or not required by law. Electronically signed by: Keyon Escobar M.D. 07/16/2024 5:35 PM
[2024-07-16] MEDS ORDERED: GLUCAGON FOR INJ 1 MG VIAL SQ PRN (18:39)
[2024-07-16] MEDS ORDERED: GLUCOSE 40% GEL 15 GM TUBE PO PRN (18:39)
[2024-07-16] MEDS ORDERED: DEXTROSE 50% 50 ML SYRINGE IV PRN (18:39)
[2024-07-16] MEDS ORDERED: CARBOHYDRATES FOR HYPOGLYCEMIA PO PRN (18:39)
[2024-07-16] MEDS ORDERED: GLUCOSE 10 TAB/TUBE PO PRN (18:39)
[2024-07-16] MEDS: INSULIN ASPART PER UNIT CHARGE SC SCH (18:50)
[2024-07-16] MEDS: FERROUS SULFATE 325 MG TAB PO SCH (20:24)
[2024-07-16 22:01] LABS: BUN Creatinine Ratio 14.2 (10-20); Calcium 9.2 mg/dl (8.6-10.3); Creatinine Clr Calc Pharmacy 10.1 ml/min; Potassium 4.8 mmol/L (3.5-5.1)
[2024-07-17 07:40] LABS: Hematocrit (blood only) 25.5 % (42.0-52.0); Hemoglobin 8.5 g/dl (14.0-18.0); Mean Corpuscular Hemoglobin 29.1 pg (25.0-34.0); Mean Corpuscular Hgb Conc 33.3 g/dL (32.0-36.0); Mean Corpuscular Volume 87.3 fL (80.0-100.0); Platelet Count 75 K/uL (130-400); RDW Standard Deviation 53.9 fL (36.4-46.3); Red Blood Count 2.92 M/uL (4.70-6.10); White Blood Count 4.73 K/ul (4.8-10.8)
[2024-07-17 07:47] LABS: Acanthocytes 3+; Basophils # (auto) 0.01 K/uL (0.00-0.20); Basophils % (auto) 0.2 %; Immature Granulocytes # (auto) 0.01 K/uL (0.01-0.20); Immature Granulocytes % (auto) 0.2 %; Lymphocytes # (auto) 0.52 K/uL (1.20-3.40); Monocytes # (auto) 0.45 K/uL (0.11-0.59); Monocytes % (auto) 9.5 %; Neutrophils # (auto) 3.74 K/uL (1.40-6.50); Neutrophils % (auto) 79.1 %
[2024-07-17 07:51] LABS: Albumin Globulin Ratio 1.3 (0.9-2); Albumin Level 3.7 gm/dl (3.4-5.0); BUN Creatinine Ratio 14.5 (10-20); Bilirubin,Total 1.3 mg/dl (0.2-1.0); Calcium 9.2 mg/dl (8.6-10.3); Globulin 2.8 gm/dl (2.5-4.0); Potassium 5.1 mmol/L (3.5-5.1); Total Protein 6.5 gm/dl (6.0-8.3)
[2024-07-17] MEDS: ATORVASTATIN 40 MG TAB PO SCH (08:07)
[2024-07-17] MEDS: CYANOCOBALAMIN (B-12) 500 MCG TABLET PO SCH (08:08)
[2024-07-17] MEDS: BUMETANIDE 2 MG in SYRINGE 0 ML IV SCH (08:11)
--- NOTE | 2024-07-17 09:01 | Nephrology Progress Note ---
Date of Service July 17, 2024 Assessment & Plan (1) EZ (acute kidney injury): Plan: * Cardiorenal syndrome. Failed outpatient diuretic therapy. Poor response to inotropic therapy * Discussed indications/risks/benefits/alternatives to vascular access placement and HD w/ patient and his this morning. Mr. Brody wishes to have a trial of dialysis therapy. If this is poorly tolerated (ie., hypotension, arrhythmia) then he will consider transition to comfort measures * Will consult vascular surgery for IJ TCC insertion (2) Chronic kidney disease, stage 4 (severe): Plan: * CKD stage G4/A3 (advanced impairment). Baseline creatinine has been 2.0. Outpatient evaluation has revealed a benign urine sediment. UACR 0.3. 24 renal ultrasound R11 0.4 cm, L10 0.5 cm. Moderate cortical thinning bilaterally. Thickened bladder wall consistent with NAPIER. Renal impairment is on the basis of microvascular disease and impaired renal perfusion associated with severe cardiomyopathy. (3) Heart failure, systolic, with acute decompensation: Plan: * Continue inotropic and diuretic therapy * Await echocardiogram results and cardiology input Admission and Anticipated Discharge Date Admission Date: July 16, 2024 Subjective Mr. Brody was evaluated in his hospital room this morning. His was present at bedside. Mr. Brody was A&O x3. He was breathing comfortably on RA but notes persistent LE swelling. He has a Damian catheter in place draining bloody urine. Mr. Brody reports little improvement despite inotropic therapy Review of Systems Constitutional: no fever Eyes: no problem reported Ear, Nose, Mouth, Throat: no problem reported Respiratory: + dyspnea on exertion Cardiovascular: no chest pain Gastrointestinal: no nausea, no vomiting and no diarrhea/loose stools Genitourinary: no dysuria, no difficulty urinating or no flank pain Integumentary: no rash Neurologic: no problem reported Physical Exam Constitutional: + frail appearing; not in distress Eyes: PERRL, conjunctivae normal, anicteric sclerae ENMT: external ear and nose normal, oropharynx normal Neck: trachea midline, no thyromegaly Respiratory: normal respiratory effort, lungs clear to auscultation Cardiovascular: Rate/Rhythm: regular rate, + tachycardic and + irregularly irregular Extremities: + edema (2+ LE swelling) Gastrointestinal (Abdomen): normal bowel sounds, soft, nontender, no hepatosplenomegaly Neurologic: Speech / Cognition: normal speech and normal cognition Results & Data Vital Signs (Past 12 Hours) Vital Signs Temp Pulse Resp BP Pulse Ox O2 Del Method 07/17/24 08:39 36.4 C L 129 H 20 101/65 96 Room Air 07/17/24 08:10 116 H 18 101/63 07/17/24 02:35 36.3 C L 117 H 18 103/64 97 Room Air 07/17/24 00:05 117 H 91/63 L 07/16/24 22:21 36.5 C 117 H 18 98/61 L 98 Room Air 07/16/24 21:11 105 H 99/72 L Laboratory Results Laboratory Results - last 24 hr 07/16/24 07/16/24 07/16/24 12:10 13:54 14:34 WBC 2.93 L RBC 3.26 L Hgb 9.4 L Hct 28.5 L MCV 87.4 MCH 28.8 MCHC 33.0 RDW Std Deviation 53.9 H RDW Coeff of [place] 16.8 H Plt Count 103 L MPV 11.9 Immature Gran % (Auto) 0.0 Neut % (Auto) 74.2 Lymph % (Auto) 14.3 Stark % (Auto) 10.2 Eos % (Auto) 1.0 Baso % (Auto) 0.3 Neut # (Auto) 2.17 Lymph # (Auto) 0.42 L [place] # (Auto) 0.30 Eos # (Auto) 0.03 Baso # (Auto) 0.01 Immature Gran # (Auto) 0.00 L Acanthocytes (Spur) PT 17.4 H INR 1.7 H APTT 33 H PTT Ratio 1.2 Sodium 132 L Potassium 4.6 Chloride 95 L Carbon Dioxide 25 Anion Gap 12 H BUN 90 H Creatinine 6.36 H* Est Cr Clr Drug Dosing 10.8 eGFR 8.42 BUN/Creatinine Ratio 14.2 Glucose 160 H POC Glucose Lactate 1.6 Calcium 9.4 Magnesium 3.2 H Total Bilirubin 1.1 H AST 15 ALT 7 Alkaline Phosphatase 51 Troponin I High Sens 31.1 H 26.7 H B-Natriuretic Peptide > 4700 H Total Protein 7.1 Albumin 4.1 Globulin 3.0 Albumin/Globulin Ratio 1.4 Urine Color Dark Yellow Urine Appearance Clear Urine pH 5.0 Ur Specific [place] 1.014 Urine Protein 1+ H Urine Glucose (UA) Negative Urine Ketones Trace H Urine Blood Negative Urine Nitrite Negative Urine Bilirubin Negative Urine Urobilinogen Negative Ur Leukocyte Esterase Trace H Urine WBC (Auto) 6-10 H Urine RBC (Auto) 3-5 H U Hyaline Cast (Auto) 0-2 U Epithel Cells (Auto) 0-2 Urine Bacteria (Auto) None Seen 07/16/24 07/16/24 07/17/24 20:05 20:55 06:29 WBC 4.73 L RBC 2.92 L Hgb 8.5 L Hct 25.5 L MCV 87.3 MCH 29.1 MCHC 33.3 RDW Std Deviation 53.9 H RDW Coeff of [place] 17.0 H Plt Count 75 L MPV 12.0 Immature Gran % (Auto) 0.2 Neut % (Auto) 79.1 Lymph % (Auto) 11.0 Stark % (Auto) 9.5 Eos % (Auto) 0.0 Baso % (Auto) 0.2 Neut # (Auto) 3.74 Lymph # (Auto) 0.52 L [place] # (Auto) 0.45 Eos # (Auto) 0.00 Baso # (Auto) 0.01 Immature Gran # (Auto) 0.01 Acanthocytes (Spur) 3+ PT INR APTT PTT Ratio Sodium 132 L 132 L Potassium 4.8 5.1 Chloride 95 L 94 L Carbon Dioxide 24 24 Anion Gap 13 H 14 H BUN 96 H 99 H Creatinine 6.78 H* D 6.85 H* Est Cr Clr Drug Dosing 10.1 10.0 eGFR 7.80 7.70 BUN/Creatinine Ratio 14.2 14.5 Glucose 136 H 137 H POC Glucose 136 H Lactate Calcium 9.2 9.2 Magnesium Total Bilirubin 1.3 H AST 13 ALT 6 L Alkaline Phosphatase 43 Troponin I High Sens B-Natriuretic Peptide Total Protein 6.5 Albumin 3.7 Globulin 2.8 Albumin/Globulin Ratio 1.3 Urine Color Urine Appearance Urine pH Ur Specific [place] Urine Protein Urine Glucose (UA) Urine Ketones Urine Blood Urine Nitrite Urine Bilirubin Urine Urobilinogen Ur Leukocyte Esterase Urine WBC (Auto) Urine RBC (Auto) U Hyaline Cast (Auto) U Epithel Cells (Auto) Urine Bacteria (Auto) 07/17/24 07:19 WBC RBC Hgb Hct MCV MCH MCHC RDW Std Deviation RDW Coeff of [place] Plt Count MPV Immature Gran % (Auto) Neut % (Auto) Lymph % (Auto) [place] % (Auto) Eos % (Auto) Baso % (Auto) Neut # (Auto) Lymph # (Auto) Stark # (Auto) Eos # (Auto) Baso # (Auto) Immature Gran # (Auto) Acanthocytes (Spur) PT INR APTT PTT Ratio Sodium Potassium Chloride Carbon Dioxide Anion Gap BUN Creatinine Est Cr Clr Drug Dosing eGFR BUN/Creatinine Ratio Glucose POC Glucose 143 H Lactate Calcium Magnesium Total Bilirubin AST ALT Alkaline Phosphatase Troponin I High Sens B-Natriuretic Peptide Total Protein Albumin Globulin Albumin/Globulin Ratio Urine Color Urine Appearance Urine pH Ur Specific [place] Urine Protein Urine Glucose (UA) Urine Ketones Urine Blood Urine Nitrite Urine Bilirubin Urine Urobilinogen Ur Leukocyte Esterase Urine WBC (Auto) Urine RBC (Auto) U Hyaline Cast (Auto) U Epithel Cells (Auto) Urine Bacteria (Auto) PG Care Time/CCT Total # of Minutes Spent Total Time Spent with Patient: Total time spent is greater than 50% in coordination of care (as documented) at patient's floor/unit and/or counseling patient: Coding Level of Care Code 04105 SUB INP/OBS CARE 3/50MIN Diagnoses EZ (acute kidney injury) N17.9 Chronic kidney disease, stage 4 (severe) N18.4 Heart failure, systolic, with acute decompensation I50.23
--- NOTE | 2024-07-17 11:56 | Cardiology Progress Note ---
Date of Service July 17, 2024 Assessment & Plan (1) Cardiorenal syndrome: (2) Heart failure, systolic, with acute decompensation: (3) CAD (coronary artery disease): (4) Permanent atrial fibrillation: (5) Valvular heart disease: Plan 1. Cardiorenal syndrome: No significant improvement with inotropic infusion and intravenous diuretics. Plan for dialysis today. 2. Acute decompensated heart failure with reduced ejection fraction: Severely reduced LV systolic function. Unclear etiology. This did not appear to be ischemic based on his recent myocardial perfusion study. He has not had symptoms of ischemia. Medications have been de-escalated due to his decompensat ed state and relative hypotension. 3. Cardiomyopathy: This appears to be ischemic based on his perfusion study. No reversibility, but a large infarct. His renal function worsened with inotropic infusion and attempts at diuresis. Initiating dialysis. The bigger question will be his tolerance to dialysis and or need for permanent dialysis. Only additional options from a cardiac standpoint would be referral for possible mechanical intervention. 4. Atrial fibrillation: Permanent. Few symptoms. He will have some higher rates now that he is decompensated and on inotropes. Will continue systemic anticoagulation. 5. Coronary artery disease: No reversibility on his recent perfusion imaging. No symptoms of ischemia. He can continue his aspirin and atorvastatin. Aspirin could also be held and lieu of systemic anticoagulation if is any concern about its effect on renal function. 6. Valvular heart disease: He has an element of mitral and aortic regurgitation. Both mild. Not contributing significantly to his current situation. 7. Pulmonary hypertension: Related to his decompensated heart failure. No improvement with escalating doses of dobutamine. The decision has been made to initiate dialysis. We should be able to affect volume removal with dialysis. I suppose there is a chance that he will not do well hemodynamically. I think the only other option is a referral for advanced therapies and or mechanical support. Admission and Anticipated Discharge Date Admission Date: July 16, 2024 Subjective This morning patient had no specific complaints. He denied breathing difficulty. No significant pain. Continued swelling in lower extremities. Nonambulatory at this point. Review of Systems Review of Systems: Per HPI Physical Exam Physical Exam: The patient is alert and oriented. Mood and affect appeared normal. He answered all questions appropriately. HEENT: Pupils are equal and reactive to light and accommodation. Extraocular movements are intact. The sclerae are anicteric. Neuro: Cranial nerves intact Lungs: Distant breath sounds with some crackles to the mid lung perry bilaterally. No expiratory wheezing. Normal respiratory effort. Cardiac: Heart demonstrates an irregular rhythm. Tachycardic. No murmurs. Chest: Well-healed sternotomy scar. Abdomen: Distended abdomen with notable edema. Pulses: The patient has palpable radial pulses bilaterally that are equal in intensity Extremities: There was no evidence of hypoperfusion. There is no cyanosis or clubbing. Tense edema in both lower extremities. Venous stasis ulcers noted. Some mild erythema. Skin: I did not appreciate any rashes on examination today. Results & Data Vital Signs (Past 12 Hours) Vital Signs Temp Pulse Resp BP Pulse Ox O2 Del Method 07/17/24 11:29 36.5 C 121 H 20 98/68 L 97 Room Air 07/17/24 08:39 36.4 C L 129 H 20 101/65 96 Room Air 07/17/24 08:10 116 H 18 101/63 07/17/24 02:35 36.3 C L 117 H 18 103/64 97 Room Air 07/17/24 00:05 117 H 91/63 L Laboratory Results Abnormal Lab Results 07/16/24 07/16/24 07/16/24 12:10 13:54 14:34 WBC 2.93 L RBC 3.26 L Hgb 9.4 L Hct 28.5 L MCV 87.4 MCH 28.8 MCHC 33.0 RDW Std Deviation 53.9 H RDW Coeff of [place] 16.8 H Plt Count 103 L MPV 11.9 Immature Gran % (Auto) 0.0 Neut % (Auto) 74.2 Lymph % (Auto) 14.3 [place] % (Auto) 10.2 Eos % (Auto) 1.0 Baso % (Auto) 0.3 Neut # (Auto) 2.17 Lymph # (Auto) 0.42 L [place] # (Auto) 0.30 Eos # (Auto) 0.03 Baso # (Auto) 0.01 Immature Gran # (Auto) 0.00 L Acanthocytes (Spur) PT 17.4 H INR 1.7 H APTT 33 H PTT Ratio 1.2 Sodium 132 L Potassium 4.6 Chloride 95 L Carbon Dioxide 25 Anion Gap 12 H BUN 90 H Creatinine 6.36 H* Est Cr Clr Drug Dosing 10.8 eGFR 8.42 BUN/Creatinine Ratio 14.2 Glucose 160 H POC Glucose Lactate 1.6 Calcium 9.4 Magnesium 3.2 H Total Bilirubin 1.1 H AST 15 ALT 7 Alkaline Phosphatase 51 Troponin I High Sens 31.1 H 26.7 H B-Natriuretic Peptide > 4700 H Total Protein 7.1 Albumin 4.1 Globulin 3.0 Albumin/Globulin Ratio 1.4 Urine Color Dark Yellow Urine Appearance Clear Urine pH 5.0 Ur Specific [place] 1.014 Urine Protein 1+ H Urine Glucose (UA) Negative Urine Ketones Trace H Urine Blood Negative Urine Nitrite Negative Urine Bilirubin Negative Urine Urobilinogen Negative Ur Leukocyte Esterase Trace H Urine WBC (Auto) 6-10 H Urine RBC (Auto) 3-5 H U Hyaline Cast (Auto) 0-2 U Epithel Cells (Auto) 0-2 Urine Bacteria (Auto) None Seen 07/16/24 07/16/24 07/17/24 20:05 20:55 06:29 WBC 4.73 L RBC 2.92 L Hgb 8.5 L Hct 25.5 L MCV 87.3 MCH 29.1 MCHC 33.3 RDW Std Deviation 53.9 H RDW Coeff of [place] 17.0 H Plt Count 75 L MPV 12.0 Immature Gran % (Auto) 0.2 Neut % (Auto) 79.1 Lymph % (Auto) 11.0 [place] % (Auto) 9.5 Eos % (Auto) 0.0 Baso % (Auto) 0.2 Neut # (Auto) 3.74 Lymph # (Auto) 0.52 L [place] # (Auto) 0.45 Eos # (Auto) 0.00 Baso # (Auto) 0.01 Immature Gran # (Auto) 0.01 Acanthocytes (Spur) 3+ PT INR APTT PTT Ratio Sodium 132 L 132 L Potassium 4.8 5.1 Chloride 95 L 94 L Carbon Dioxide 24 24 Anion Gap 13 H 14 H BUN 96 H 99 H Creatinine 6.78 H* D 6.85 H* Est Cr Clr Drug Dosing 10.1 10.0 eGFR 7.80 7.70 BUN/Creatinine Ratio 14.2 14.5 Glucose 136 H 137 H POC Glucose 136 H Lactate Calcium 9.2 9.2 Magnesium Total Bilirubin 1.3 H AST 13 ALT 6 L Alkaline Phosphatase 43 Troponin I High Sens B-Natriuretic Peptide Total Protein 6.5 Albumin 3.7 Globulin 2.8 Albumin/Globulin Ratio 1.3 Urine Color Urine Appearance Urine pH Ur Specific [place] Urine Protein Urine Glucose (UA) Urine Ketones Urine Blood Urine Nitrite Urine Bilirubin Urine Urobilinogen Ur Leukocyte Esterase Urine WBC (Auto) Urine RBC (Auto) U Hyaline Cast (Auto) U Epithel Cells (Auto) Urine Bacteria (Auto) 07/17/24 07/17/24 07:19 11:26 WBC RBC Hgb Hct MCV MCH MCHC RDW Std Deviation RDW Coeff of [place] Plt Count MPV Immature Gran % (Auto) Neut % (Auto) Lymph % (Auto) [place] % (Auto) Eos % (Auto) Baso % (Auto) Neut # (Auto) Lymph # (Auto) [place] # (Auto) Eos # (Auto) Baso # (Auto) Immature Gran # (Auto) Acanthocytes (Spur) PT INR APTT PTT Ratio Sodium Potassium Chloride Carbon Dioxide Anion Gap BUN Creatinine Est Cr Clr Drug Dosing eGFR BUN/Creatinine Ratio Glucose POC Glucose 143 H 144 H Lactate Calcium Magnesium Total Bilirubin AST ALT Alkaline Phosphatase Troponin I High Sens B-Natriuretic Peptide Total Protein Albumin Globulin Albumin/Globulin Ratio Urine Color Urine Appearance Urine pH Ur Specific [place] Urine Protein Urine Glucose (UA) Urine Ketones Urine Blood Urine Nitrite Urine Bilirubin Urine Urobilinogen Ur Leukocyte Esterase Urine WBC (Auto) Urine RBC (Auto) U Hyaline Cast (Auto) U Epithel Cells (Auto) Urine Bacteria (Auto) PG Care Time/CCT Total # of Minutes Spent Total Time Spent with Patient: Total time spent is greater than 50% in coordination of care (as documented) at patient's floor/unit and/or counseling patient: Coding Level of Care Code 68541 SUB INP/OBS CARE 3/50MIN Diagnoses Cardiorenal syndrome I13.2 Heart failure presence: with heart failure Hypertensive chronic kidney disease stage: stage 5 chronic kidney disease or end stage renal disease Heart failure, systolic, with acute decompensation I50.23 CAD (coronary artery disease) I25.10 Permanent atrial fibrillation I48.2 Valvular heart disease I38 (1) Cardiorenal syndrome Heart failure presence: with heart failure 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
[2024-07-17 20:47] LABS: Hematocrit (blood only) 25.9 % (42.0-52.0); Hemoglobin 8.7 g/dl (14.0-18.0)
--- NOTE | 2024-07-17 22:55 | Hospitalist Progress Note ---
Date of Service July 17, 2024 Assessment & Plan (1) Cardiorenal syndrome: Plan: CKD stage G4/A3 - microvascular disease and impaired renal perfusion associated with severe cardiomyopathy/ HRrEF (15-20%) With EZ and acute CHF - Volume overloaded - Given hypotension, dobutamine on admission - Will defer diuresis at this time given extreme hypotension; will need diuresis in future with blood pressure control - renal US ordered - Cardiology and nephrology consulted Patient wiil require dialysis as patient is failing diuretic therapy. (2) EZ (acute kidney injury): Plan: history of diagnosed CKD EZ secondary to cardiorenal syndrome - Recent medication changes; addition of metolazone, Entresto 1 tablet BID -> 1/2 tablet BID, discontinue spironolactone, Jardiance, potassium - Cr increased to 6.36 (baseline 2.5), BUN 90 - bladder scan within normal limits, no postobstructive cause - lactate WNL - hypermagnesemia, mg 3.2 - will likely decrease with future diuresis - hyponatremia, 132 - recent increase in diuretic use, continue to monitor with diuresis - renal U/S ordered - nephrology consulted - BMP recheck in AM - Hold nephrotoxic agents (3) HFrEF (heart failure with reduced ejection fraction): Plan: Patient presents with worsening edema and dyspnea on exertion on Bumex 2 Mg daily and metolazone 2.5 Mg daily (has been take 3 of each daily) - Last echocardiogram on 04/2024 showed a EF 15 to 20%, severe global hypokinesis of left ventricle, left atrium dilation, aortic regurg, mitral regurg, tricuspid regurg - BNP >4700 on admission - CXR showed trace bl pleural effusions and cardiomegaly - troponin elevated at 31.1, repeat pending; likely secondary to demand - Heart healthy, 1000 mL fluid restricted diet - Strict I&O monitoring - Daily weights - significant weight gain recently - promote leg elevation - cardiology consulted - Withhold diuresis at this time given hypotension - monitor on telemetry (4) Hypertension: Plan: Currently hypotensive, took home medications this morning - Will hold home medications to allow for diuresis - dobutamine given on admission - Will defer diuresis at this time given extremely hypotensive - Cardiology consulted (5) Permanent atrial fibrillation: Plan: - EKG on admission showed a fib, rate 90 - recent TSH WNL - Anticoagulated with Eliquis - rate controlled with carvedilol; will hold given hypotension - monitor on Telemetry (6) Diabetes mellitus type 2 in nonobese: Plan: - Patient stated he no longer takes metformin or Jardiance - Most recent A1C 6.5 - SSI with target BSG range 110-140mg/dL, CF 50, carb ratio 15 - will defer Basal insulin at this time - adjust regimen as needed Plan Chronic stable diagnoses: Anemia - continue iron and B12 supplements HLD - continue statin, hold ASA in setting of EZ VTE ppx: continue home Eliquis Diet: diabetes, heart healthy, fluid restriction 1000 ml Code status: DNR, but can intubate Dispo: PCU/tele Admission and Anticipated Discharge Date Admission Date: July 16, 2024 Subjective Patient reports no new symptoms. Physical Exam Physical Exam: The patient is awake, alert and oriented 3, well developed and well nourished, normocephalic and atraumatic, in no acute distress. Non-toxic appearing. HEENT- EOMI, mucous membranes moist. Hearing grossly intact. Heart-normal S1 and S2. No murmurs, rubs or gallops. Lungs-decreased bilaterally, no respiratory distress, no accessory muscle use. Abdomen-normal bowel sounds and soft. Mild ascites noted. Non-tender. Extremities- no clubbing. Ecchymosis to right foot. +3 pitting edema bilateral LE. Psychiatric-normal affect. Results & Data Results & Data Vital Signs (Past 12 Hours) Vital Signs Temp Pulse Pulse Resp BP Pulse Ox O2 Del Method 07/17/24 21:00 124 H 22 Room Air 07/17/24 19:39 36.4 C L 112 H 20 99/62 L 97 Room Air 07/17/24 19:30 Room Air 07/17/24 16:33 36.3 C L 122 H 20 101/62 96 Room Air 07/17/24 14:44 115 H 07/17/24 11:29 36.5 C 121 H 20 98/68 L 97 Room Air PG Care Time/CCT Total # of Minutes Spent Total Time Spent with Patient: Total time spent is greater than 50% in coordination of care (as documented) at patient's floor/unit and/or counseling patient: Coding Level of Care Code 17486 SUB INP/OBS CARE 2/35MIN Diagnoses Cardiorenal syndrome I13.2 Heart failure presence: with heart failure 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
[2024-07-18 06:40] LABS: Hematocrit (blood only) 26.2 % (42.0-52.0); Hemoglobin 8.8 g/dl (14.0-18.0); Immature Granulocytes # (auto) 0.03 K/uL (0.01-0.20); Immature Granulocytes % (auto) 0.6 %; Lymphocytes # (auto) 0.42 K/uL (1.20-3.40); Lymphocytes % (auto) 7.7 %; Mean Corpuscular Hemoglobin 29.2 pg (25.0-34.0); Mean Corpuscular Hgb Conc 33.6 g/dL (32.0-36.0); Mean Platelet Volume 12.1 fL (9.4-12.4); Monocytes # (auto) 0.42 K/uL (0.11-0.59); Monocytes % (auto) 7.7 %; Neutrophils # (auto) 4.57 K/uL (1.40-6.50); Platelet Count 80 K/uL (130-400); RDW Coefficient of Variation 17.2 % (11.5-14.5); RDW Standard Deviation 54.4 fL (36.4-46.3); Red Blood Count 3.01 M/uL (4.70-6.10); White Blood Count 5.44 K/ul (4.8-10.8)
[2024-07-18 07:05] LABS: BUN Creatinine Ratio 14.7 (10-20); Calcium 9.4 mg/dl (8.6-10.3); Creatinine Clr Calc Pharmacy 9.2 ml/min; Potassium 5.3 mmol/L (3.5-5.1)
--- NOTE | 2024-07-18 08:56 | Nephrology Progress Note ---
Date of Service July 18, 2024 Assessment & Plan (1) EZ (acute kidney injury): Plan: * Cardiorenal syndrome. Patient failed outpatient diuretic therapy. Kidney function continues to decline despite titration of dobutamine therapy * Mr. Brody is agreeable to IJ TCC and trial of HD * Await vascular surgery recommendations * 1st run heparin free HD orders have been placed in EMR and HD RN notified * If HD is poorly tolerated, consider transition to comfort measures (2) Chronic kidney disease, stage 4 (severe): Plan: * CKD stage G4/A3 (advanced impairment). Baseline creatinine has been 2.0. Outpatient evaluation has revealed a benign urine sediment. UACR 0.3. 05/10 renal ultrasound R11 0.4 cm, L10 0.5 cm. Moderate cortical thinning bilaterally. Thickened bladder wall consistent with NAPIER. Renal impairment is on the basis of microvascular disease and impaired renal perfusion associated with severe cardiomyopathy. (3) Heart failure, systolic, with acute decompensation: Plan: * Continue inotropic and diuretic therapy Admission and Anticipated Discharge Date Admission Date: July 16, 2024 Subjective Mr. Brody was evaluated in his hospital room this morning. His was present at bedside. He c/o persistent abdominal and LE swelling. He denied dyspnea or angina Review of Systems Constitutional: no fever Eyes: no problem reported Ear, Nose, Mouth, Throat: no problem reported Respiratory: + dyspnea on exertion Cardiovascular: no chest pain Gastrointestinal: no nausea, no vomiting and no diarrhea/loose stools Genitourinary: no dysuria, no difficulty urinating or no flank pain Integumentary: no rash Neurologic: no problem reported Physical Exam Constitutional: + frail appearing; not in distress Eyes: PERRL, conjunctivae normal, anicteric sclerae ENMT: external ear and nose normal, oropharynx normal Neck: trachea midline, no thyromegaly Respiratory: normal respiratory effort, lungs clear to auscultation Cardiovascular: Rate/Rhythm: regular rhythm and + tachycardic Extremities: + edema (2+ LE swelling) Gastrointestinal (Abdomen): normal bowel sounds, soft, nontender, no hepatosplenomegaly Neurologic: Speech / Cognition: normal speech and normal cognition Results & Data Vital Signs (Past 12 Hours) Vital Signs Temp Pulse Pulse Resp BP Pulse Ox O2 Del Method 07/18/24 07:41 36.6 C 123 H 20 91/65 L 99 Nasal Cannula 07/18/24 03:26 36.5 C 116 H 20 104/70 98 Nasal Cannula 07/18/24 01:00 25 H 93 Nasal Cannula 07/17/24 23:00 36.9 C 121 H 27 H 102/67 96 Room Air 07/17/24 21:45 116 H 07/17/24 21:00 124 H 22 Room Air O2 Flow Rate 07/18/24 07:41 2 07/18/24 03:26 2 07/18/24 01:00 2 07/17/24 23:00 07/17/24 21:45 07/17/24 21:00 Laboratory Results Laboratory Results - last 24 hr 07/17/24 07/17/24 07/17/24 11:26 16:14 20:21 WBC RBC Hgb Hct MCV MCH MCHC RDW Std Deviation RDW Coeff of [place] Plt Count MPV Immature Gran % (Auto) Neut % (Auto) Lymph % (Auto) [place] % (Auto) Eos % (Auto) Baso % (Auto) Neut # (Auto) Lymph # (Auto) [place] # (Auto) Eos # (Auto) Baso # (Auto) Immature Gran # (Auto) Sodium Potassium Chloride Carbon Dioxide Anion Gap BUN Creatinine Est Cr Clr Drug Dosing eGFR BUN/Creatinine Ratio Glucose POC Glucose 144 H 135 H 137 H Calcium Stool Occult Bld Scrn 07/17/24 07/17/24 07/18/24 20:31 Unknown 06:05 WBC 5.44 RBC 3.01 L Hgb 8.7 L 8.8 L Hct 25.9 L 26.2 L MCV 87.0 MCH 29.2 MCHC 33.6 RDW Std Deviation 54.4 H RDW Coeff of [place] 17.2 H Plt Count 80 L MPV 12.1 Immature Gran % (Auto) 0.6 Neut % (Auto) 84.0 Lymph % (Auto) 7.7 [place] % (Auto) 7.7 Eos % (Auto) 0.0 Baso % (Auto) 0.0 Neut # (Auto) 4.57 Lymph # (Auto) 0.42 L [place] # (Auto) 0.42 Eos # (Auto) 0.00 Baso # (Auto) 0.00 Immature Gran # (Auto) 0.03 Sodium 132 L Potassium 5.3 H Chloride 95 L Carbon Dioxide 21 Anion Gap 16 H BUN 109 H Creatinine 7.41 H* D Est Cr Clr Drug Dosing 9.2 eGFR 7.01 BUN/Creatinine Ratio 14.7 Glucose 135 H POC Glucose Calcium 9.4 Stool Occult Bld Scrn Positive A PG Care Time/CCT Total # of Minutes Spent Total Time Spent with Patient: Total time spent is greater than 50% in coordination of care (as documented) at patient's floor/unit and/or counseling patient: Coding Level of Care Code 24193 SUB INP/OBS CARE 3/50MIN Diagnoses EZ (acute kidney injury) N17.9 Chronic kidney disease, stage 4 (severe) N18.4 Heart failure, systolic, with acute decompensation I50.23
--- NOTE | 2024-07-18 09:25 | Consultation ---
Date of Consultation July 18, 2024 Assessment & Plan (1) End stage renal disease on dialysis: Pt with worsening renal fxn and hyperkalemia. Pt scheduled for permcath insertion later today. Procedure, risks, benefits and alternatives discussed with pt at Dr Feliciano's request. Pt expresses understanding and agreement. History of Present Illness Reason for Consultation: ESRD Attending Physician: Richy Ramirez History of Present Illness 78yo m with hx of CKD, HTN, CAD, a fib, DMII, cardiomyopathy, dyslipidemia, admitted with worsening renal fxn, now requiring HD, seen in consultation today for permcath insertion. Pt admits fatigue/malaise, chronic cough, edema. Denies DYSON, fever, chest pain, SOB, abd pain, N/V, rest pain, claudication, other complaints. Allergies Allergy/AdvReac Type Severity Reaction Status Date / Time ramipril Allergy Severe TONGUE Verified 07/16/24 13:44 SWELLS Home Medications Medication Instructions Recorded Confirmed Type cyanocobalamin (vitamin B-12) 1,000 mcg PO DAILY #90 tabs 04/22/19 07/16/24 History 1,000 mcg tablet aspirin 81 mg tablet,delayed 81 mg PO DAILY 11/28/23 07/16/24 History release multivitamin with minerals 1 tab PO DAILY 11/28/23 07/16/24 History ascorbate calcium (vitamin C) 500 500 mg PO DAILY 01/31/24 07/16/24 History mg tablet cholecalciferol (vitamin D3) 25 25 mcg PO DAILY 01/31/24 07/16/24 History mcg (1,000 unit) capsule atorvastatin 40 mg tablet 40 mg PO DAILY #90 tabs 04/17/24 07/16/24 Rx ferrous sulfate 325 mg (65 mg 325 mg PO BID 04/19/24 07/16/24 History iron) tablet (iron) carvedilol 25 mg tablet 25 mg PO BID #180 tabs 05/02/24 07/16/24 Rx sacubitril 49 mg-valsartan 51 mg 0.5 tab PO BID #60 tabs 06/23/24 07/16/24 Rx tablet (Entresto) apixaban 5 mg tablet (Eliquis) 5 mg PO BID #180 tabs 06/25/24 07/16/24 Rx bumetanide 2 mg tablet 2 mg PO DAILY #60 tabs 07/03/24 07/16/24 Rx metolazone 2.5 mg tablet 2.5 mg PO DAILY #90 tabs 07/11/24 07/16/24 Rx Patient History Medical History Stable angina Aortic valve sclerosis Metabolic encephalopathy Elevated prostate specific antigen (PSA) 10/2022 Declines further evaluation, no further labs. Heart aneurysm Sick sinus syndrome Family History Unknown Coronary heart disease Sister Diabetes Brother Cardiac disorder Denies family history of Ovarian cancer Prostate cancer Breast cancer Lung cancer Colorectal cancer Social History Smoking Status: Former smoker Tobacco Type: Declines Age Started Using Tobacco: 18; Age Quit Using Tobacco: 43; Second Hand Exposure: No; Do You Dip or Chew Tobacco: No; Hx Alcohol Use: No Hx Substance Use: No Preferred Language: Ch[place] Communication Ability: Effective Visual Impairment: Limited Hearing Ability: Normal Warp Preparer Required: No Beliefs That Will Affect Care: None marital status: Current Living Situation: Spouse and Family Current Living Situation Comment: daughter also lives with patient current occupational status: retired How many Children do You have: 3 Feels Safe at Home: Yes Childhood Exposure to Second-Hand Smoke: No Diet: regular caffeine: Yes Dental Care, Regularly: No Physical Activity Frequency: Daily Seatbelt Use: always Sunscreen Use: No Assistive Devices: Cane, Walker and Wheelchair Review of Systems Review of Systems: All systems reviewed & are unremarkable except as noted in HPI & below Physical Exam Constitutional: WD/WN, vitals as above cooperative and comfortable; not in distress ENMT: Ears: no hearing impairment Neck: trachea midline Respiratory: normal respiratory effort, lungs clear to auscultation Auscultation: + diminished lung sounds Cardiovascular: Rate/Rhythm: + tachycardic Vessels: posterior tibial pulses present, dorsalis pedis pulses present and radial pulses present; + abnormal peripheral pulses Extremities: normal capillary refill and + edema Gastrointestinal (Abdomen): Inspection/Auscultation: abdomen normal to inspection and normal bowel sounds Percussion/Palpation: abdomen soft; abdomen nontender Musculoskeletal: no cyanosis or clubbing, extremities motor strength 5/5 Skin: no rashes, warm and dry Neurologic: moves all extremities and awake; no focal motor deficits and not confused Psychiatric: A+Ox3, euthymic affect Results & Data Vital Signs (Past 12 Hours) Vital Signs Temp Pulse Pulse Resp BP Pulse Ox O2 Del Method 07/18/24 07:41 36.6 C 123 H 20 91/65 L 99 Nasal Cannula 07/18/24 03:26 36.5 C 116 H 20 104/70 98 Nasal Cannula 07/18/24 01:00 25 H 93 Nasal Cannula 07/17/24 23:00 36.9 C 121 H 27 H 102/67 96 Room Air 07/17/24 21:45 116 H O2 Flow Rate 07/18/24 07:41 2 07/18/24 03:26 2 07/18/24 01:00 2 07/17/24 23:00 07/17/24 21:45
[2024-07-18] MEDS ORDERED: MIDAZOLAM HCL 1 MG/ML 2ML VIAL ONE (11:13)
[2024-07-18] MEDS ORDERED: fentaNYL citrate PF 100 MCG/2 ML VIAL ONE (11:13)
--- NOTE | 2024-07-18 11:13 | Anesthesiology Consultation ---
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 Patient started on dobutamine for hypotension. Currently tachycardic in 120s, hypotensive in 80s/50s, Cr of 7.5, K of 5.3. Plan for mild mac with hemodynamic monitoring. ASA4. History Surgery Operation Date: 07/18/24 11:30 Proposed Procedures p Insertion Perm Catheter - Anatoliy Feliciano MD Height/Weight Height: 5 ft 8 in Weight: 91.3 kg Allergies Allergy/AdvReac Type Severity Reaction Status Date / Time ramipril Allergy Severe TONGUE Verified 07/16/24 13:44 SWELLS Medications Home Medications Medication Instructions Recorded Confirmed Last Taken cyanocobalamin (vitamin B-12) 1,000 mcg PO DAILY #90 tabs 04/22/19 07/16/24 11/28/23 1,000 mcg tablet aspirin 81 mg tablet,delayed 81 mg PO DAILY 11/28/23 07/16/24 11/28/23 release multivitamin with minerals 1 tab PO DAILY 11/28/23 07/16/24 11/28/23 ascorbate calcium (vitamin C) 500 500 mg PO DAILY 01/31/24 07/16/24 Unknown mg tablet cholecalciferol (vitamin D3) 25 25 mcg PO DAILY 01/31/24 07/16/24 Unknown mcg (1,000 unit) capsule atorvastatin 40 mg tablet 40 mg PO DAILY #90 tabs 04/17/24 07/16/24 Unknown ferrous sulfate 325 mg (65 mg 325 mg PO BID 04/19/24 07/16/24 Unknown iron) tablet (iron) carvedilol 25 mg tablet 25 mg PO BID #180 tabs 05/02/24 07/16/24 Unknown sacubitril 49 mg-valsartan 51 mg 0.5 tab PO BID #60 tabs 06/23/24 07/16/24 Unknown tablet (Entresto) apixaban 5 mg tablet (Eliquis) 5 mg PO BID #180 tabs 06/25/24 07/16/24 Unknown bumetanide 2 mg tablet 2 mg PO DAILY #60 tabs 07/03/24 07/16/24 Unknown metolazone 2.5 mg tablet 2.5 mg PO DAILY #90 tabs 07/11/24 07/16/24 Unknown Active Medications Generic Name Dose Route Start Last Admin Trade Name Daily PRN Reason Stop Dose Admin Atorvastatin Calcium 40 mg 07/17/24 09:00 07/18/24 09:00 Atorvastatin 40 Mg Tab PO 08/16/24 08:59 40 mg DAILY AMANDEEP Administration Cyanocobalamin 1,000 mcg 07/17/24 09:00 07/18/24 09:01 Cyanocobalamin (B-12) 500 Mcg Tablet PO 08/16/24 08:59 1,000 mcg DAILY AMANDEEP Administration Ferrous Sulfate 325 mg 07/16/24 21:00 07/18/24 09:00 Ferrous Sulfate 325 Mg Tab PO 08/15/24 20:59 325 mg BID AMANDEEP Administration Dobutamine HCl/Dextrose 1,000 mg in 250 mls @ 6.975 mls/hr 07/16/24 13:30 07/18/24 06:59 IV 08/15/24 13:29 7.53 mcg/kg/min .Q24H AMANDEEP 10.5 mls/hr Titration Protocol 5 MCG/KG/MIN Bumetanide 2 mg/ Syringe 8 mls @ 4 mls/min 07/17/24 09:00 07/18/24 08:59 IV 08/16/24 08:59 Not Given BID@0900,1700 AMANDEEP Insulin Aspart 0 units 07/16/24 18:39 07/18/24 08:49 Insulin Aspart Per Unit Charge SC 08/15/24 18:38 Not Given ACHS AMANDEEP NPO Date Last Intake of Fluids: 07/17/24 Time Last Intake of Fluids: 18:00 Date Last Intake of Solids: 07/17/24 Time Last Intake of Solids: 18:00 Past Medical History Medical History Stable angina Aortic valve sclerosis Metabolic encephalopathy Elevated prostate specific antigen (PSA) 10/2022 Declines further evaluation, no further labs. Heart aneurysm Sick sinus syndrome Past Family History Family History Unknown Coronary heart disease Sister Diabetes Brother Cardiac disorder Denies family history of Ovarian cancer Prostate cancer Breast cancer Lung cancer Colorectal cancer Past Anesthesia History No Hx of Anesthesia Complications and No Family Hx of Anesthesia Complications Social History Smoking Status: Former smoker Do You Dip or Chew Tobacco: No Hx Alcohol Use: No Hx Substance Use: No substance use type: does not use Review of Systems ROS Unobtainable: All systems reviewed & are unremarkable except as noted in HPI & below Physical Exam Vital Signs Last Vital Signs Temp 36.6 C 07/18/24 10:50 Pulse 119 H 07/18/24 11:09 Resp 20 07/18/24 10:50 BP 87/65 L 07/18/24 10:50 Pulse Ox 97 07/18/24 10:50 O2 Del Method Nasal Cannula 07/18/24 10:50 O2 Flow Rate 1 07/18/24 10:50 ENMT Mouth: no TMJ abnormality Thyromental Distance: > or= 3.5 Finger Breadths Mallampati Class: II Neck normal visual inspection and trachea midline; neck extension not limited Respiratory normal respiratory effort Auscultation: lungs clear to auscultation bilaterally Cardiovascular Rate/Rhythm: regular rate and regular rhythm Heart Sounds: no murmur Musculoskeletal Spine: normal cervical ROM Extremities: full ROM of extremities Neurologic moves all extremities Psychiatric Orientation: alert and oriented x 3 Testing Laboratory Results 07/18/24 06:05 07/18/24 06:05 PT 17.4 Seconds (9.0-12.0) H 07/16/24 12:10 INR 1.7 (0.9-1.1) H 07/16/24 12:10 APTT 33 Seconds (21-31) H 07/16/24 12:10 Urine Color Dark Yellow 07/16/24 14:34 Urine Appearance Clear (Clear) 07/16/24 14:34 Urine pH 5.0 (4.5-7.5) 07/16/24 14:34 Ur Specific Ramona 1.014 (1.000-1.030) 07/16/24 14:34 Urine Protein 1+ (Negative) H 07/16/24 14:34 Urine Glucose (UA) Negative (Negative) 07/16/24 14:34 Urine Ketones Trace (Negative) H 07/16/24 14:34 Urine Nitrite Negative (Negative) 07/16/24 14:34 Ur Leukocyte Esterase Trace (Negative) H 07/16/24 14:34 Urine WBC (Auto) 6-10 /hpf (0-5) H 07/16/24 14:34 Urine RBC (Auto) 3-5 /hpf (0-2) H 07/16/24 14:34 U Hyaline Cast (Auto) 0-2 /lpf (0-2) 07/16/24 14:34 U Epithel Cells (Auto) 0-2 /hpf (0-2) 07/16/24 14:34 Urine Bacteria (Auto) None Seen (None Seen) 07/16/24 14:34 Other Testing Echocardiogram 04/19/2024: Severely reduced LV systolic function with ejection fraction of 15 to 20%. Severe global hypokinesis. Moderate dilation of left atrium. Mild aortic regurgitation. Moderate mitral regurgitation. Elevated pulmonary pressures estimated at 50 to 60 mmHg. Cardiac perfusion study 04/21/2024: Abnormal with evidence of old infarct involving the anterior, distal anterolateral, anteroseptal, distal inferior and apical myocardium. Minimal reversibility. Gated ejection fraction 22% ECG Additional Comments: EKG demonstrated atrial fibrillation with controlled ventricular response. Apparent conduction. Poor R wave progression in the precordial leads.
[2024-07-18 11:22] LABS: Hep B Surface Ag with confirm Negative (Negative)
[2024-07-18] MEDS ORDERED: ONDANSETRON INJ 2 MG/ML 2 ML VIAL IV PRN (11:22)
[2024-07-18] MEDS ORDERED: ePHEDrine sulfate 50 MG/ML AMP IV PRN (11:22)
[2024-07-18] MEDS ORDERED: ATROPINE SULFATE 0.1 MG/ML 10ML SYR IV PRN (11:22)
[2024-07-18] MEDS: ceFAZolin 2000MG 2,000 MG/15 ML SYR IV ONE (11:26)
[2024-07-18 11:31] LABS: Hepatitis B Surface Ab Quant 3.01 mIU/mL (>or=10mIU/mL Immune); Hepatitis B Surface Antibody Non-Immune
[2024-07-18] MEDS ORDERED: NOREPINEPHRINE BITARTRATE 1 MG/ML 4 ML VIAL IV ONE (11:45)
[2024-07-18] MEDS: HEPARIN SOD (PORCINE) 5,000 UNITS/ML VIAL ONE (12:24)
[2024-07-18] MEDS: LIDOCAINE 1% LOCAL 20 ML VIAL ONE (12:24)
--- NOTE | 2024-07-18 12:25 | Operative Report ---
Post Operative Report Pre & Post Diagnosis Operation Date: 07/18/24 11:30 Pre-Op Diagnosis: Acute Kidney Injury Post-Op Diagnosis: Acute Kidney Injury I identified the patient and participated in the time-out.: Yes Procedure Operation Date: 07/18/24 11:30 Actual Procedures p Insertion Perm Catheter,Right Internal Jugular Approach,Ultrasound Localization of Right Internal Jugular Vein, Fluoroscopy for Positioning(Right) - Anatoliy Feliciano MD Surgeon Anatoliy Feliciano MD Agent Spa Desk none Estimated Blood Loss 100 Findings Consistent with Post-Op Diagnosis Specimens none Anesthesia Type MAC Epidural Complications none Disposition Accompanied Patient To Recovery: No Disposition: Recovery Room Indications This is a 78-year-old gentleman who has significant cardiac disease and fluid overload. He is not able to handle of fluid secondary to his renal insufficiency. PermCath for fluid removal was recommended. I have discussed the risks options and benefits of the procedure with the patient. The patient understands the risks options and benefits and agrees to the procedure. Description of Procedure Patient was taken to the angio suite and placed in the supine position. The right side of the neck and chest wall were prepped and draped in a sterile manner. The patient was identified and a timeout performed. Local anesthesia was then administered to the appropriate areas of the neck and chest wall. Ultrasound was then used to locate the right internal jugular vein. The vein compressed easily, had no filing defects, and was patent. The vein was then punctured under direct ultrasound imaging. A guidewire was then passed centrally under fluoroscopic imaging. A stab wound was then made in the anterior chest wall and a 19 cm permcath was passed from the stab wound on the chest wall to the puncture site on the neck. The puncture site was then dilated till the 14Fr peel away sheath was inserted. The permcath was then inserted through the sheath to a central position in the distal superior vena cava. The peel away sheath was then removed. There was a kink noted in the catheter. Using multiple wires were able to reposition the catheter with no kink in its course. The catheter was then sutured in place using nylon sutures. The puncture was then closed using a 4-0 Vicryl subcuticular suture. Dermabond was used for a dressing on the puncture site. Both ports aspirated and flushed easily and were then packed with heparin. A sterile dressing was applied to the catheter. The patient left the operation room in satisfactory condition and tolerated the procedure well. All needle and sponge counts were correct at the end of the procedure. I attest to the content of the Intraoperative Record and any orders documented therein. Any exceptions are noted below.
--- NOTE | 2024-07-18 14:07 | Anesthesiology Progress Note ---
Date of Service July 18, 2024 Anesthesia Post Procedure Vital Signs Vital Signs: Temp Pulse Pulse Resp BP Pulse Ox O2 Del Method 07/18/24 13:45 119 H 21 97/59 L 100 Nasal Cannula 07/18/24 13:35 110 H 12 83/62 L 100 Nasal Cannula 07/18/24 13:25 128 H 13 88/57 L 100 Nasal Cannula 07/18/24 13:15 36.4 C L 120 H 23 86/54 L 100 Nasal Cannula 07/18/24 13:05 123 H 20 80/57 L 100 Nasal Cannula 07/18/24 12:55 121 H 12 81/63 L 100 Nasal Cannula 07/18/24 12:45 114 H 14 93/61 L 100 Nasal Cannula 07/18/24 12:38 36.3 C L 121 H 14 92/57 L 100 Nasal Cannula 07/18/24 11:09 119 H 07/18/24 10:50 36.6 C 114 H 20 87/65 L 97 Nasal Cannula 07/18/24 10:13 Nasal Cannula 07/18/24 07:41 36.6 C 123 H 20 91/65 L 99 Nasal Cannula 07/18/24 03:26 36.5 C 116 H 20 104/70 98 Nasal Cannula 07/18/24 01:00 25 H 93 Nasal Cannula 07/17/24 23:00 36.9 C 121 H 27 H 102/67 96 Room Air 07/17/24 21:45 116 H 07/17/24 21:00 124 H 22 Room Air 07/17/24 19:39 36.4 C L 112 H 20 99/62 L 97 Room Air 07/17/24 19:30 Room Air 07/17/24 16:33 36.3 C L 122 H 20 101/62 96 Room Air 07/17/24 14:44 115 H O2 Flow Rate 07/18/24 13:45 2 07/18/24 13:35 2 07/18/24 13:25 2 07/18/24 13:15 2 07/18/24 13:05 2 07/18/24 12:55 2 07/18/24 12:45 2 07/18/24 12:38 2 07/18/24 11:09 07/18/24 10:50 1 07/18/24 10:13 2 07/18/24 07:41 2 07/18/24 03:26 2 07/18/24 01:00 2 07/17/24 23:00 07/17/24 21:45 07/17/24 21:00 07/17/24 19:39 07/17/24 19:30 07/17/24 16:33 07/17/24 14:44 Transfer of Care Handoff Completed per policy Notes Mental Status: alert / awake / arousable Patient Amnestic to Procedure: Yes Nausea / Vomiting: adequately controlled Pain: adequately controlled Airway Patency, RR, SpO2: stable & adequate BP & HR: stable & adequate Hydration State: stable & adequate Anesthetic Complications: no major complications apparent and Pt Satisfied with anesthetic care
--- NOTE | 2024-07-18 15:12 | Cardiology Progress Note ---
Date of Service July 18, 2024 Assessment & Plan (1) Cardiorenal syndrome: (2) Heart failure, systolic, with acute decompensation: (3) CAD (coronary artery disease): (4) Permanent atrial fibrillation: (5) Valvular heart disease: Plan 1. Cardiorenal syndrome: No significant improvement with inotropic infusion and intravenous diuretics. Currently on dialysis. 2. Acute decompensated heart failure with reduced ejection fraction: Severely reduced LV systolic function. Unclear etiology. There did not appear to be reversible ischemia on his recent perfusion study. He has a very remote history of surgical revascularization. No symptoms of angina or coronary insufficiency leading up to his decompensation. Possibly related to acute viral illness with influenza A earlier in the year. 3. Cardiomyopathy: This appears to be ischemic based on his perfusion study. No reversibility, but a large infarct. Not currently candidate for medical therapy given his renal dysfunction and relative hypotension. 4. Atrial fibrillation: Permanent. Few symptoms. He will have some higher rates now that he is decompensated and on inotropes. Will continue systemic anticoagulation. 5. Coronary artery disease: No reversibility on his recent perfusion imaging. No symptoms of ischemia. He can continue his aspirin and atorvastatin. Aspirin could also be held and lieu of systemic anticoagulation if is any concern about its effect on renal function. 6. Valvular heart disease: He has an element of mitral and aortic regurgitation. Both mild. Not contributing significantly to his current situation. 7. Pulmonary hypertension: Related to his decompensated heart failure. There is no significant improvement in his clinical condition with escalating doses of dobutamine and diuretics. Patient underwent placement of permacath today and currently is on dialysis. I had a discussion with the advanced heart failure specialist at [facility] regarding his condition. They feel that he would be a reasonable candidate for mechanical intervention. He will require transfer to their ICU where he would continue on dialysis and eventually undergo coronary angiography and likely right heart catheterization. I did have a discussion with the patient and his family regarding more advanced options. At this point he wanted to "see how things went" with dialysis. I am not confident that he would do well without more advanced therapies, but ho pefully he can achieve some element of diuresis and perhaps some improved LV function with decreased preload. I think would be difficult to reinstitute most medical therapy and he did not have much improvement on medical therapy previously. Unclear if kidney function will return or if he will simply need to be maintained on dialysis. Admission and Anticipated Discharge Date Admission Date: July 16, 2024 Subjective I saw the patient this morning and then again in this afternoon after his dialysis access was placed. Currently on dialysis. He denies significant breathing difficulty. No pain. He continues to have significant lower extremity edema. Not aware of palpitations. Overall just fatigued and tired. Review of Systems Review of Systems: Per HPI Physical Exam Physical Exam: The patient is alert and oriented. Mood and affect appeared normal. He answered all questions appropriately. Lying relatively flat in bed. HEENT: Pupils are equal and reactive to light and accommodation. Extraocular movements are intact. The sclerae are anicteric. Neuro: Cranial nerves intact Lungs: Distant breath sounds with some crackles to the mid lung perry bilaterally. No expiratory wheezing. Normal respiratory effort. Cardiac: Heart demonstrates an irregular rhythm. Tachycardic. No murmurs. Chest: Well-healed sternotomy scar. Pulses: The patient has palpable radial pulses bilaterally that are equal in intensity Extremities: There was no evidence of hypoperfusion. There is no cyanosis or clubbing. Tense edema in both lower extremities. Venous stasis ulcers noted. Some mild erythema. Skin: I did not appreciate any rashes on examination today. Results & Data Vital Signs (Past 12 Hours) Vital Signs Temp Pulse Pulse Resp BP BP Pulse Ox 07/18/24 15:00 122 H 81/54 L 07/18/24 14:30 118 H 91/67 L 07/18/24 14:15 110 H 107/79 07/18/24 13:57 36.4 C L 128 H 07/18/24 13:45 119 H 21 97/59 L 100 07/18/24 13:35 110 H 12 83/62 L 100 07/18/24 13:25 128 H 13 88/57 L 100 07/18/24 13:15 36.4 C L 120 H 23 86/54 L 100 07/18/24 13:05 123 H 20 80/57 L 100 07/18/24 12:55 121 H 12 81/63 L 100 07/18/24 12:45 114 H 14 93/61 L 100 07/18/24 12:38 36.3 C L 121 H 14 92/57 L 100 07/18/24 11:09 119 H 07/18/24 10:50 36.6 C 114 H 20 87/65 L 97 07/18/24 10:13 07/18/24 07:41 36.6 C 123 H 20 91/65 L 99 07/18/24 03:26 36.5 C 116 H 20 104/70 98 O2 Del Method O2 Flow Rate 07/18/24 15:00 07/18/24 14:30 07/18/24 14:15 07/18/24 13:57 07/18/24 13:45 Nasal Cannula 2 07/18/24 13:35 Nasal Cannula 2 07/18/24 13:25 Nasal Cannula 2 07/18/24 13:15 Nasal Cannula 2 07/18/24 13:05 Nasal Cannula 2 07/18/24 12:55 Nasal Cannula 2 07/18/24 12:45 Nasal Cannula 2 07/18/24 12:38 Nasal Cannula 2 07/18/24 11:09 07/18/24 10:50 Nasal Cannula 1 07/18/24 10:13 Nasal Cannula 2 07/18/24 07:41 Nasal Cannula 2 07/18/24 03:26 Nasal Cannula 2 Laboratory Results Abnormal Lab Results 07/17/24 07/17/24 07/17/24 16:14 20:21 20:31 WBC RBC Hgb 8.7 L Hct 25.9 L MCV MCH MCHC RDW Std Deviation RDW Coeff of Abbey Plt Count MPV Immature Gran % (Auto) Neut % (Auto) Lymph % (Auto) [place] % (Auto) Eos % (Auto) Baso % (Auto) Neut # (Auto) Lymph # (Auto) [place] # (Auto) Eos # (Auto) Baso # (Auto) Immature Gran # (Auto) Sodium Potassium Chloride Carbon Dioxide Anion Gap BUN Creatinine Est Cr Clr Drug Dosing eGFR BUN/Creatinine Ratio Glucose POC Glucose 135 H 137 H Calcium Stool Occult Bld Scrn Hep Bs Antigen Hep Bs Antibody Hep Bs Antibody, Quant 07/17/24 07/18/24 07/18/24 Unknown 06:05 10:10 WBC 5.44 RBC 3.01 L Hgb 8.8 L Hct 26.2 L MCV 87.0 MCH 29.2 MCHC 33.6 RDW Std Deviation 54.4 H RDW Coeff of Abbey 17.2 H Plt Count 80 L MPV 12.1 Immature Gran % (Auto) 0.6 Neut % (Auto) 84.0 Lymph % (Auto) 7.7 [place] % (Auto) 7.7 Eos % (Auto) 0.0 Baso % (Auto) 0.0 Neut # (Auto) 4.57 Lymph # (Auto) 0.42 L [place] # (Auto) 0.42 Eos # (Auto) 0.00 Baso # (Auto) 0.00 Immature Gran # (Auto) 0.03 Sodium 132 L Potassium 5.3 H Chloride 95 L Carbon Dioxide 21 Anion Gap 16 H BUN 109 H Creatinine 7.41 H* D Est Cr Clr Drug Dosing 9.2 eGFR 7.01 BUN/Creatinine Ratio 14.7 Glucose 135 H POC Glucose Calcium 9.4 Stool Occult Bld Scrn Positive A Hep Bs Antigen Negative Hep Bs Antibody Non-Immune Hep Bs Antibody, Quant 3.01 PG Care Time/CCT Total # of Minutes Spent Total Time Spent with Patient: Total time spent is greater than 50% in coordination of care (as documented) at patient's floor/unit and/or counseling patient: Coding Level of Care Code 01283 SUB INP/OBS CARE 3/50MIN Diagnoses Cardiorenal syndrome I13.2 Heart failure presence: with heart failure Hypertensive chronic kidney disease stage: stage 5 chronic kidney disease or end stage renal disease Heart failure, systolic, with acute decompensation I50.23 CAD (coronary artery disease) I25.10 Permanent atrial fibrillation I48.2 Valvular heart disease I38 (1) Cardiorenal syndrome Heart failure presence: with heart failure 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
[2024-07-18] MEDS: EPOETIN ALFA 10,000 UNITS/ML VIAL IV ONE (15:37)
[2024-07-18 17:27] LABS: Hematocrit (blood only) 24.5 % (42.0-52.0); Hemoglobin 8.1 g/dl (14.0-18.0)
[2024-07-19 04:01] LABS: Hematocrit (blood only) 24.9 % (42.0-52.0); Hemoglobin 8.1 g/dl (14.0-18.0); Immature Granulocytes # (auto) 0.01 K/uL (0.01-0.20); Immature Granulocytes % (auto) 0.2 %; Lymphocytes % (auto) 8.3 %; Mean Corpuscular Hemoglobin 29.3 pg (25.0-34.0); Mean Corpuscular Hgb Conc 32.5 g/dL (32.0-36.0); Mean Corpuscular Volume 90.2 fL (80.0-100.0); Mean Platelet Volume 12.4 fL (9.4-12.4); Monocytes # (auto) 0.39 K/uL (0.11-0.59); Monocytes % (auto) 8.1 %; Neutrophils % (auto) 83.4 %; Platelet Count 71 K/uL (130-400); RDW Coefficient of Variation 17.2 % (11.5-14.5); RDW Standard Deviation 56.4 fL (36.4-46.3); Red Blood Count 2.76 M/uL (4.70-6.10)
[2024-07-19 04:29] LABS: Albumin Globulin Ratio 1.4 (0.9-2); Albumin Level 3.7 gm/dl (3.4-5.0); BUN Creatinine Ratio 13.2 (10-20); Bilirubin,Total 1.4 mg/dl (0.2-1.0); Calcium 9.2 mg/dl (8.6-10.3); Creatinine Clr Calc Pharmacy 10.1 ml/min; Globulin 2.7 gm/dl (2.5-4.0); Potassium 5.1 mmol/L (3.5-5.1); Total Protein 6.4 gm/dl (6.0-8.3)
--- NOTE | 2024-07-19 08:29 | Cardiology Progress Note ---
Date of Service July 19, 2024 Assessment & Plan (1) Heart failure, systolic, with acute decompensation: (2) EZ (acute kidney injury): (3) Cardiorenal syndrome: (4) HFrEF (heart failure with reduced ejection fraction): (5) Acute blood loss anemia: Plan 1. Cardiorenal syndrome: No significant improvement with inotropic infusion and intravenous diuretics. Currently for dialysis this am. 2. Acute decompensated heart failure with reduced ejection fraction: Severely reduced LV systolic function. There did not appear to be reversible ischemia on his recent perfusion study. He has a very remote history of surgical revascularization. No symptoms of angina or coronary insufficiency leading up to his decompensation. Possibly related to acute viral illness with influenza A earlier in the year. 3. Cardiomyopathy: This appears to be ischemic based on his perfusion study. No reversibility, but a large infarct. Not currently candidate for medical therapy given his renal dysfunction and relative hypotension. 4. Atrial fibrillation: Permanent. Few symptoms. He will have some higher rates now that he is decompensated and on inotropes. Will continue systemic anticoagulation. 5. Coronary artery disease: No reversibility on his recent perfusion imaging. No symptoms of ischemia. He can continue his aspirin and atorvastatin. Aspirin could also be held and lieu of systemic anticoagulation if is any concern about its effect on renal function. 6. Valvular heart disease: He has an element of mitral and aortic regurgitation. Both mild. Not contributing significantly to his current situation. 7. Pulmonary hypertension: Related to his decompensated heart failure. 8. Acute on chronic anemia-given hypotension and oozing all prm-would recommend transfusion of 1 unit on HD today and additional unit tomorrow if tolerates. Consent was obtained by myself with patients . There is no significant improvement in his clinical condition with escalating doses of dobutamine and diuretics-now off [employer]-remains tachy and hypotension. Patient underwent placement of permacath yesterday-for HD later. Dr. Guardado had discussion with the advanced heart failure specialist at [facility] regarding his condition. They felt that he would be a reasonable candidate for mechanical intervention. He will require transfer to their ICU where he would continue on dialysis and eventually undergo coronary angiography and likely right heart catheterization. Dr. Guardado had discussion with the patient and his family regarding more advanced options. At this point he wanted to "see how things went" with dialysis. I REVIEWED THIS AGAIN WITH THIS AM AND THEY HAVE NOT YET MADE A DECISION. I am not confident that he would do well without more advanced therapies, but hopefully he can achieve some element of diuresis and perhaps some improved LV function with decreased preload. I think would be difficult to reinstitute most medical therapy and he did not have much improvement on medical therapy previously. Unclear if kidney function will return or if he will simply need to be maintained on dialysis. Admission and Anticipated Discharge Date Admission Date: July 16, 2024 Subjective CHF follow up Pt uncomfortable but could not clearly say why denies CP and SOB Review of Systems Review of Systems: All systems reviewed & are unremarkable except as noted in HPI & below Physical Exam Physical Exam: appears chronically ill, pale Respiratory: decreased BS on right rales at bases Cardiovascular: irregular, tachy Afib Results & Data Vital Signs (Past 12 Hours) Vital Signs Temp Pulse Pulse Resp BP Pulse Ox O2 Del Method 07/19/24 07:30 36.5 C 120 H 18 70/52 L 98 Nasal Cannula 07/19/24 03:08 36.6 C 127 H 22 85/54 L 99 Nasal Cannula 07/18/24 23:24 36.8 C 117 H 16 94/60 L 99 Nasal Cannula 07/18/24 23:00 117 H O2 Flow Rate 07/19/24 07:30 2 07/19/24 03:08 07/18/24 23:24 07/18/24 23:00 Laboratory Results Abnormal lab results 07/18/24 07/18/24 07/18/24 Range/Units 16:10 17:06 20:15 RBC (4.70-6.10) M/uL Hgb 8.1 L (14.0-18.0) g/dl Hct 24.5 L (42.0-52.0) % RDW Std Deviation (36.4-46.3) fL RDW Coeff of Abbey (11.5-14.5) % Plt Count (130-400) K/uL Lymph # (Auto) (1.20-3.40) K/uL Sodium (136-145) mmol/L Chloride (98-107) mmol/L Anion Gap (3-11) BUN (6-23) mg/dl Creatinine (0.6-1.4) mg/dl Glucose (70-99(Fasting)) mg/dl POC Glucose 128 H 161 H (70-99) mg/dl Magnesium (1.7-2.4) mg/dl Total Bilirubin (0.2-1.0) mg/dl 07/19/24 07/19/24 Range/Units 03:48 07:03 RBC 2.76 L (4.70-6.10) M/uL Hgb 8.1 L (14.0-18.0) g/dl Hct 24.9 L (42.0-52.0) % RDW Std Deviation 56.4 H (36.4-46.3) fL RDW Coeff of Abbey 17.2 H (11.5-14.5) % Plt Count 71 L (130-400) K/uL Lymph # (Auto) 0.40 L (1.20-3.40) K/uL Sodium 133 L (136-145) mmol/L Chloride 97 L (98-107) mmol/L Anion Gap 15 H (3-11) BUN 89 H D (6-23) mg/dl Creatinine 6.75 H* D (0.6-1.4) mg/dl Glucose 127 H (70-99(Fasting)) mg/dl POC Glucose 129 H (70-99) mg/dl Magnesium 3.0 H (1.7-2.4) mg/dl Total Bilirubin 1.4 H (0.2-1.0) mg/dl Medications Administered Current Inpatient Medications Atorvastatin Calcium (Atorvastatin 40 Mg Tab) 40 mg PO DAILY AMANDEEP Stop: 08/16/24 08:59 Last Admin: 07/18/24 09:00 Dose: 40 mg Cyanocobalamin (Cyanocobalamin (B-12) 500 Mcg Tablet) 1,000 mcg PO DAILY AMANDEEP Stop: 08/16/24 08:59 Last Admin: 07/18/24 09:01 Dose: 1,000 mcg Dextrose (Dextrose 50% 50 Ml Syringe) 25 - 50 ml IV UD PRN; Protocol PRN Reason: Hypoglycemia Protocol Stop: 08/15/24 18:38 Ferrous Sulfate (Ferrous Sulfate 325 Mg Tab) 325 mg PO BID AMANDEEP Stop: 08/15/24 20:59 Last Admin: 07/18/24 20:47 Dose: 325 mg Glucagon (Glucagon For Inj 1 Mg Vial) 1 mg SQ UD PRN; Protocol PRN Reason: Hypoglycemia Protocol Stop: 08/15/24 18:38 Glucose (Glucose 40% Gel 15 Gm Tube) 15 - 30 gm PO UD PRN; Protocol PRN Reason: Hypoglycemia Protocol Stop: 08/15/24 18:38 Glucose (Glucose 10 Tab/Tube) 4 - 8 tab PO UD PRN; Protocol PRN Reason: Hypoglycemia Protocol Stop: 08/15/24 18:38 Insulin Aspart (Insulin Aspart Per Unit Charge) 0 units SC ACHS AMANDEEP Stop: 08/15/24 18:38 Last Admin: 07/18/24 20:47 Dose: 1 units Miscellaneous (Carbohydrates For Hypoglycemia ) 15 - 30 gm PO UD PRN PRN Reason: Hypoglycemia Protocol Stop: 08/15/24 18:38 ECG Additional Comments: tele Afib with RVR (3) Cardiorenal syndrome Heart failure presence: with heart failure 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
[2024-07-19] MEDS ORDERED: SODIUM CHLORIDE 0.9% 100 ML IV PRN (08:47)
[2024-07-19] MEDS ORDERED: SODIUM CHLORIDE 0.9% 50 ML IV PRN (08:47)
--- NOTE | 2024-07-19 10:57 | Hospitalist Progress Note ---
Date of Service July 18, 2024 Assessment & Plan (1) Cardiorenal syndrome: Plan: CKD stage G4/A3 - microvascular disease and impaired renal perfusion associated with severe cardiomyopathy/ HRrEF (15-20%) With EZ and acute CHF - Volume overloaded - Given hypotension, dobutamine on admission - Will defer diuresis at this time given extreme hypotension; will need diuresis in future with blood pressure control - renal US ordered - Cardiology and nephrology consulted Patient wiil require dialysis as patient is failing diuretic therapy. Perm cath placed on 07/18 First session of dialysis on 07/18: one liter removed. Repeat on 07/19 (2) EZ (acute kidney injury): Plan: history of diagnosed CKD EZ secondary to cardiorenal syndrome - Recent medication changes; addition of metolazone, Entresto 1 tablet BID -> 1/2 tablet BID, discontinue spironolactone, Jardiance, potassium - Cr increased to 6.36 (baseline 2.5), BUN 90 - bladder scan within normal limits, no postobstructive cause - lactate WNL - hypermagnesemia, mg 3.2 - will likely decrease with future diuresis - hyponatremia, 132 - recent increase in diuretic use, continue to monitor with diuresis - renal U/S ordered - nephrology consulted - BMP recheck in AM - Hold nephrotoxic agents (3) HFrEF (heart failure with reduced ejection fraction): Plan: Patient presents with worsening edema and dyspnea on exertion on Bumex 2 Mg daily and metolazone 2.5 Mg daily (has been take 3 of each daily) - Last echocardiogram on 04/2024 showed a EF 15 to 20%, severe global hypokinesis of left ventricle, left atrium dilation, aortic regurg, mitral regurg, tricuspid regurg - BNP >4700 on admission - CXR showed trace bl pleural effusions and cardiomegaly - troponin elevated at 31.1, repeat pending; likely secondary to demand - Heart healthy, 1000 mL fluid restricted diet - Strict I&O monitoring - Daily weights - significant weight gain recently - promote leg elevation - cardiology consulted - Withhold diuresis at this time given hypotension - monitor on telemetry (4) Hypertension: Plan: Currently hypotensive, took home medications this morning - Will hold home medications to allow for diuresis - dobutamine given on admission - Will defer diuresis at this time given extremely hypotensive - Cardiology consulted (5) Permanent atrial fibrillation: Plan: - EKG on admission showed a fib, rate 90 - recent TSH WNL - Anticoagulated with Eliquis - rate controlled with carvedilol; will hold given hypotension - monitor on Telemetry (6) Diabetes mellitus type 2 in nonobese: Plan: - Patient stated he no longer takes metformin or Jardiance - Most recent A1C 6.5 - SSI with target BSG range 110-140mg/dL, CF 50, carb ratio 15 - will defer Basal insulin at this time - adjust regimen as needed Plan Chronic stable diagnoses: Anemia - continue iron and B12 supplements HLD - continue statin, hold ASA in setting of EZ VTE ppx: continue home Eliquis Diet: diabetes, heart healthy, fluid restriction 1000 ml Code status: DNR, but can intubate Dispo: PCU/tele Admission and Anticipated Discharge Date Admission Date: July 16, 2024 Subjective 78 yo male reports feeling better than he did yesterday. He is agreeable to more dialysis but he is undecided on more aggressive procedures that may require a transfer. Review of Systems Review of Systems: All systems reviewed & are unremarkable except as noted in HPI & below Physical Exam Physical Exam: The patient is awake, alert and oriented 3, well developed and well nourished, normocephalic and atraumatic, in no acute distress. Non-toxic appearing. HEENT- EOMI, mucous membranes moist. Hearing grossly intact. Heart-normal S1 and S2. No murmurs, rubs or gallops. Lungs-decreased bilaterally, no respiratory distress, no accessory muscle use. Abdomen-normal bowel sounds and soft. Mild ascites noted. Non-tender. Extremities- no clubbing. Ecchymosis to right foot. +3 pitting edema bilateral LE. Psychiatric-normal affect. Results & Data Results & Data Vital Signs (Past 12 Hours) Vital Signs Temp Pulse Pulse Pulse Resp BP BP 07/19/24 10:50 36.5 C 109 H 18 91/45 L 07/19/24 10:40 36.5 C 118 H 18 90/59 L 07/19/24 10:30 106 H 81/62 L 07/19/24 10:25 36.4 C L 82 18 87/67 L 07/19/24 10:18 114 H 07/19/24 10:05 36.5 C 100 H 18 85/59 L 07/19/24 10:00 100 H 85/59 L 07/19/24 09:45 130 H 82/56 L 07/19/24 09:37 36.4 C L 70 07/19/24 07:30 36.5 C 120 H 18 70/52 L 07/19/24 03:08 36.6 C 127 H 22 85/54 L 07/18/24 23:24 36.8 C 117 H 16 94/60 L 07/18/24 23:00 117 H Pulse Ox O2 Del Method O2 Flow Rate 07/19/24 10:50 97 2 07/19/24 10:40 97 2 07/19/24 10:30 07/19/24 10:25 97 2 07/19/24 10:18 07/19/24 10:05 98 2 07/19/24 10:00 07/19/24 09:45 07/19/24 09:37 07/19/24 07:30 98 Nasal Cannula 2 07/19/24 03:08 99 Nasal Cannula 07/18/24 23:24 99 Nasal Cannula 07/18/24 23:00 PG Care Time/CCT Total # of Minutes Spent Total Time Spent with Patient: Total time spent is greater than 50% in coordination of care (as documented) at patient's floor/unit and/or counseling patient: Coding Level of Care Code 00823 SUB INP/OBS CARE 235MIN Diagnoses Cardiorenal syndrome I13.2 Heart failure presence: with heart failure 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
[2024-07-19] MEDS: EPOETIN ALFA 10,000 UNITS/ML VIAL IV ONE (12:58)
[2024-07-20 07:47] VITALS: BP 124/61; RESP 18; TEMP 98.1; O2SAT 97
--- NOTE | 2024-07-20 08:25 | Hospitalist Progress Note ---
Date of Service July 19, 2024 Assessment & Plan (1) Cardiorenal syndrome: Plan: CKD stage G4/A3 - microvascular disease and impaired renal perfusion associated with severe cardiomyopathy/ HRrEF (15-20%) With EZ and acute CHF - Volume overloaded - Given hypotension, dobutamine on admission - Will defer diuresis at this time given extreme hypotension; will need diuresis in future with blood pressure control - renal US ordered - Cardiology and nephrology consulted Patient wiil require dialysis as patient is failing diuretic therapy. Perm cath placed on 07/18 First session of dialysis on 07/18: one liter removed. Second session on 07/19 Patient still does not want transferred to tertiary center for advanced options (2) EZ (acute kidney injury): Plan: history of diagnosed CKD EZ secondary to cardiorenal syndrome - Recent medication changes; addition of metolazone, Entresto 1 tablet BID -> 1/2 tablet BID, discontinue spironolactone, Jardiance, potassium - Cr increased to 6.36 (baseline 2.5), BUN 90 - bladder scan within normal limits, no postobstructive cause - lactate WNL - hypermagnesemia, mg 3.2 - will likely decrease with future diuresis - hyponatremia, 132 - recent increase in diuretic use, continue to monitor with diuresis - renal U/S ordered - nephrology consulted - BMP recheck in AM - Hold nephrotoxic agents (3) HFrEF (heart failure with reduced ejection fraction): Plan: Patient presents with worsening edema and dyspnea on exertion on Bumex 2 Mg daily and metolazone 2.5 Mg daily (has been take 3 of each daily) - Last echocardiogram on 04/2024 showed a EF 15 to 20%, severe global hypokinesis of left ventricle, left atrium dilation, aortic regurg, mitral regurg, tricuspid regurg - BNP >4700 on admission - CXR showed trace bl pleural effusions and cardiomegaly - troponin elevated at 31.1, repeat pending; likely secondary to demand - Heart healthy, 1000 mL fluid restricted diet - Strict I&O monitoring - Daily weights - significant weight gain recently - promote leg elevation - cardiology consulted - Withhold diuresis at this time given hypotension - monitor on telemetry (4) Hypertension: Plan: Currently hypotensive, took home medications this morning - Will hold home medications to allow for diuresis - dobutamine given on admission - Will defer diuresis at this time given extremely hypotensive - Cardiology consulted (5) Permanent atrial fibrillation: Plan: - EKG on admission showed a fib, rate 90 - recent TSH WNL - Anticoagulated with Eliquis - rate controlled with carvedilol; will hold given hypotension - monitor on Telemetry (6) Diabetes mellitus type 2 in nonobese: Plan: - Patient stated he no longer takes metformin or Jardiance - Most recent A1C 6.5 - SSI with target BSG range 110-140mg/dL, CF 50, carb ratio 15 - will defer Basal insulin at this time - adjust regimen as needed Plan Chronic stable diagnoses: Anemia - continue iron and B12 supplements HLD - continue statin, hold ASA in setting of EZ VTE ppx: continue home Eliquis Diet: diabetes, heart healthy, fluid restriction 1000 ml Code status: DNR, but can intubate Dispo: PCU/tele Admission and Anticipated Discharge Date Admission Date: July 16, 2024 Subjective Patient reports he tolerated his second dialysis Review of Systems Review of Systems: All systems reviewed & are unremarkable except as noted in HPI & below Physical Exam Physical Exam: The patient is awake, alert and oriented 3, well developed and well nourished, normocephalic and atraumatic, in no acute distress. Non-toxic appearing. HEENT- EOMI, mucous membranes moist. Hearing grossly intact. Heart-normal S1 and S2. No murmurs, rubs or gallops. Lungs-decreased bilaterally, no respiratory distress, no accessory muscle use. Abdomen-normal bowel sounds and soft. Mild ascites noted. Non-tender. Extremities- no clubbing. Ecchymosis to right foot. +3 pitting edema bilateral LE. Psychiatric-normal affect. Results & Data Results & Data Vital Signs (Past 12 Hours) Vital Signs Temp Pulse Pulse Resp BP Pulse Ox O2 Del Method 07/20/24 07:46 36.7 C 118 H 18 124/61 97 Nasal Cannula 07/20/24 03:08 36.6 C 125 H 20 112/57 L 96 Nasal Cannula 07/19/24 23:39 94 H 07/19/24 23:03 36.5 C 87 21 93/51 L 90 Nasal Cannula O2 Flow Rate 07/20/24 07:46 2 07/20/24 03:08 07/19/24 23:39 07/19/24 23:03 2 PG Care Time/CCT Total # of Minutes Spent Total Time Spent with Patient: Total time spent is greater than 50% in coordination of care (as documented) at patient's floor/unit and/or counseling patient: Coding Level of Care Code 79996 SUB INP/OBS CARE 2/35MIN Diagnoses Cardiorenal syndrome I13.2 Heart failure presence: with heart failure 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
[2024-07-20 10:18] LABS: Hematocrit (blood only) 28.1 % (42.0-52.0); Hemoglobin 9.1 g/dl (14.0-18.0); Mean Corpuscular Hemoglobin 29.1 pg (25.0-34.0); Mean Corpuscular Hgb Conc 32.4 g/dL (32.0-36.0); Mean Corpuscular Volume 89.8 fL (80.0-100.0); Mean Platelet Volume 12.1 fL (9.4-12.4); Platelet Count 76 K/uL (130-400); RDW Coefficient of Variation 17.8 % (11.5-14.5); RDW Standard Deviation 56.8 fL (36.4-46.3); Red Blood Count 3.13 M/uL (4.70-6.10); White Blood Count 4.64 K/ul (4.8-10.8)
[2024-07-20 10:45] LABS: BUN Creatinine Ratio 11.1 (10-20); Calcium 9.3 mg/dl (8.6-10.3); Creatinine Clr Calc Pharmacy 11.8 ml/min; Potassium 4.5 mmol/L (3.5-5.1)
[2024-07-20 11:20] VITALS: PULSE 120
--- NOTE | 2024-07-20 12:23 | Nephrology Progress Note ---
Date of Service July 20, 2024 Assessment & Plan (1) Cardiorenal syndrome: Plan: ESKD secondary to cardiorenal syndrome, with severe cardiomyopathy with HRrEF (15-20%), started on HD via Rt IJ TDC. Volume status acceptable, electrolyte acceptable. BP well controlled. --HD tomorrow --waiting for transferred to [facility] [place] Admission and Anticipated Discharge Date Admission Date: July 16, 2024 Subjective Mr. Brody was seen and evaluated this morning with family at bedside. He denies any symptoms. Waiting for transfer to [facility] [place]. Review of Systems Review of Systems: ROS was unremarkable. Physical Exam Constitutional: WD/WN, vitals as above no acute distress Respiratory: no respiratory distress Auscultation: lungs clear to auscultation bilaterally Cardiovascular: Rate/Rhythm: regular rate and regular rhythm Heart Sounds: normal S1 and normal S2 Extremities: no edema Neurologic: no focal motor deficits Psychiatric: Orientation: alert and oriented x 3 Results & Data Vital Signs (Past 12 Hours) Vital Signs Temp Pulse Pulse Pulse Resp BP Pulse Ox 07/20/24 11:19 36.7 C 120 H 118 H 18 124/61 97 07/20/24 10:11 118 H 07/20/24 07:46 36.7 C 118 H 18 124/61 97 07/20/24 03:08 36.6 C 125 H 20 112/57 L 96 O2 Del Method O2 Flow Rate 07/20/24 11:19 07/20/24 10:11 07/20/24 07:46 Nasal Cannula 2 07/20/24 03:08 Nasal Cannula PG Care Time/CCT Total # of Minutes Spent Total Time Spent with Patient: Total time spent is greater than 50% in coordination of care (as documented) at patient's floor/unit and/or counseling patient: Coding Level of Care Code 29407 SUB INP/OBS CARE 10/11MIN Diagnoses Cardiorenal syndrome I13.2 Heart failure presence: with heart failure 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
--- NOTE | 2024-07-20 16:34 | Cardiology Progress Note ---
Date of Service July 20, 2024 Assessment & Plan (1) Heart failure, systolic, with acute decompensation: (2) EZ (acute kidney injury): (3) Cardiorenal syndrome: (4) HFrEF (heart failure with reduced ejection fraction): (5) Acute blood loss anemia: Plan 1. Cardiorenal syndrome: No significant improvement with inotropic infusion and intravenous diuretics. Currently for dialysis this am. 2. Acute decompensated heart failure with reduced ejection fraction: Severely reduced LV systolic function. There did not appear to be reversible ischemia on his recent perfusion study. He has a very remote history of surgical revascularization. No symptoms of angina or coronary insufficiency leading up to his decompensation. Possibly related to acute viral illness with influenza A earlier in the year. 3. Cardiomyopathy: This appears to be ischemic based on his perfusion study. No reversibility, but a large infarct. Not currently candidate for medical therapy given his renal dysfunction and relative hypotension. 4. Atrial fibrillation: Permanent. Few symptoms. He will have some higher rates now that he is decompensated and on inotropes. Will continue systemic anticoagulation. 5. Coronary artery disease: No reversibility on his recent perfusion imaging. No symptoms of ischemia. He can continue his aspirin and atorvastatin. Aspirin could also be held and lieu of systemic anticoagulation if is any concern about its effect on renal function. 6. Valvular heart disease: He has an element of mitral and aortic regurgitation. Both mild. Not contributing significantly to his current situation. 7. Pulmonary hypertension: Related to his decompensated heart failure. 8. Acute on chronic anemia-given hypotension and oozing all prm-would recommend transfusion of 1 unit on HD today and additional unit tomorrow if tolerates. Consent was obtained by myself with patients . There is no significant improvement in his clinical condition with escalating doses of dobutamine and diuretics-now off OPTICIAN-remains tachy and hypotension. We are currently in the process of transferring the patient to [facility]. Ground transportation was called for however if the delay is go to be too long we will send him by helicopter. All of the above was discussed with the family. Thank you for allowing me to participate in the care of this very nice gentleman. I look forward to participating in his care with you. A total of 85 minutes was spent with the patient as well as making transportation arrangements. Admission and Anticipated Discharge Date Admission Date: July 16, 2024 Subjective Mr. Brody was seen and evaluated this morning with family at bedside. He denies any symptoms. Waiting for transfer to [facility]. I made contact with Dr. Jeff as well as Dr. Butts who is in charge of the ICU. They have accepted the patient in transfer. The patient and the family was updated. Review of Systems Review of Systems: All systems reviewed & are unremarkable except as noted in HPI & below Physical Exam Physical Exam: Patient appears pale he seated in a chair in no apparent distress blood pressure is marginal heart rate is 1 teens and A-fib Respiratory: Diminished breath sounds bilaterally Cardiovascular: Irregular tachycardic Results & Data Vital Signs (Past 12 Hours) Vital Signs Temp Pulse Pulse Pulse Resp BP Pulse Ox 07/20/24 11:19 36.7 C 120 H 118 H 18 124/61 97 07/20/24 10:11 118 H 07/20/24 07:46 36.7 C 118 H 18 124/61 97 O2 Del Method O2 Flow Rate 07/20/24 11:19 07/20/24 10:11 07/20/24 07:46 Nasal Cannula 2 Laboratory Results Abnormal lab results 07/19/24 07/20/24 07/20/24 Range/Units 20:12 07:25 10:02 WBC 4.64 L (4.8-10.8) K/ul RBC 3.13 L (4.70-6.10) M/uL Hgb 9.1 L (14.0-18.0) g/dl Hct 28.1 L (42.0-52.0) % RDW Std Deviation 56.8 H (36.4-46.3) fL RDW Coeff of Abbey 17.8 H (11.5-14.5) % Plt Count 76 L (130-400) K/uL Sodium 134 L (136-145) mmol/L Anion Gap 14 H (3-11) BUN 63 H D (6-23) mg/dl Creatinine 5.70 H* D (0.6-1.4) mg/dl Glucose 109 H (70-99(Fasting)) mg/dl POC Glucose 113 H 119 H (70-99) mg/dl (3) Cardiorenal syndrome Heart failure presence: with heart failure 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
--- NOTE | 2024-07-23 17:16 | Discharge Summary ---
Discharge Summary Date of Service July 20, 2024 Principal Dx & Hospital Course #1 = Principal Diagnosis (1) Cardiorenal syndrome: CKD stage G4/A3 - microvascular disease and impaired renal perfusion associated with severe cardiomyopathy/ HRrEF (15-20%) With EZ and acute CHF - Volume overloaded - Given hypotension, dobutamine on admission - Will defer diuresis at this time given extreme hypotension; will need diuresis in future with blood pressure control - renal US ordered - Cardiology and nephrology consulted Patient wiil require dialysis as patient is failing diuretic therapy. Perm cath placed on 07/18 First session of dialysis on 07/18: one liter removed. Second session on 07/19 No significant improvement with inotropic infusion and intravenous diuretics. Patient will be transferred to tertiary center to see if he is a candidate for mechanical intervention WIll transfer to [facility] (2) EZ (acute kidney injury): history of diagnosed CKD EZ secondary to cardiorenal syndrome - Recent medication changes; addition of metolazone, Entresto 1 tablet BID -> 1/2 tablet BID, discontinue spironolactone, Jardiance, potassium - Cr increased to 6.36 (baseline 2.5), BUN 90 - bladder scan within normal limits, no postobstructive cause - lactate WNL - hypermagnesemia, mg 3.2 - will likely decrease with future diuresis - hyponatremia, 132 - recent increase in diuretic use, continue to monitor with diuresis - renal U/S ordered - nephrology consulted (3) HFrEF (heart failure with reduced ejection fraction): Patient presents with worsening edema and dyspnea on exertion on Bumex 2 Mg daily and metolazone 2.5 Mg daily (has been take 3 of each daily) - Last echocardiogram on 04/2024 showed a EF 15 to 20%, severe global hypokinesis of left ventricle, left atrium dilation, aortic regurg, mitral regurg, tricuspid regurg - BNP >4700 on admission - CXR showed trace bl pleural effusions and cardiomegaly - troponin elevated at 31.1, repeat pending; likely secondary to demand - Heart healthy, 1000 mL fluid restricted diet - Strict I&O monitoring - Daily weights - significant weight gain recently - promote leg elevation - cardiology consulted - Withhold diuresis at this time given hypotension - monitor on telemetry (4) Hypertension: Currently hypotensive, took home medications this morning - Will hold home medications to allow for diuresis - dobutamine given on admission - Will defer diuresis at this time given extremely hypotensive - Cardiology consulted (5) Permanent atrial fibrillation: - EKG on admission showed a fib, rate 90 - recent TSH WNL - Anticoagulated with Eliquis - rate controlled with carvedilol; will hold given hypotension - monitor on Telemetry (6) Diabetes mellitus type 2 in nonobese: - Patient stated he no longer takes metformin or Jardiance - Most recent A1C 6.5 - SSI with target BSG range 110-140mg/dL, CF 50, carb ratio 15 - will defer Basal insulin at this time - adjust regimen as needed Plan Chronic stable diagnoses: Anemia - continue iron and B12 supplements HLD - continue statin, hold ASA in setting of EZ Admission HPI Per Admitting Provider Patient is a 78-year-old male with a past medical history of reduced ejection fraction CHF, A-fib, CKD, hypertension, hyperlipidemia, diabetes. Who presents today due to ongoing edema over the past few months. He stated that he has had worsening lower extremity edema since November. He has also had dyspnea on exertion since November. He denies orthopnea and dyspnea at rest. He takes Bumex and recently added metolazone. He is to take 1 pill a day and increases as needed. He has been taking 3 pills of each per day. He has had a lot of medication changes recently. He recently decreased his Entresto to half a tablet, and discontinued spironolactone, potassium, and Jardiance. He took all of his home medications this morning. He had a recent fall; bruising to right foot. ROS is positive for lightheadedness (chronic when standing), cough that began a few months ago, and melena due to iron. Patient denies headache, vision changes, dyspnea, chest pain, abdominal pain, nausea, vomiting, diarrhea, constipation, dysuria, hematuria, numbness, tingling. He denies past history of cancer and VTE. He does not use oxygen at baseline. He took all of his home medications this morning. He wishes to be intubated if needed, but no CPR in the event of cardiac arrest. Discharge Exam The patient is awake, alert and oriented 3, well developed and well nourished, normocephalic and atraumatic, in no acute distress. Non-toxic appearing. HEENT- EOMI, mucous membranes moist. Hearing grossly intact. Heart-normal S1 and S2. No murmurs, rubs or gallops. Lungs-decreased bilaterally, no respiratory distress, no accessory muscle use. Abdomen-normal bowel sounds and soft. Mild ascites noted. Non-tender. Extremities- no clubbing. Ecchymosis to right foot. +3 pitting edema bilateral LE. Psychiatric-normal affect. Discharge Plan Discharge Items Patient Disposition: Transfer Acute Care Hospital Reason For Visit: EZ, CHF Discharge Diagnosis: Cardiorenal syndrome Activity: Resume your previous activity Non-emergency contact: Primary Care Provider Call non-emergency contact if: you have any medication questions Follow-up/Referrals: Demond Garcia DO [Primary Care Provider] - Diet: Heart Healthy and Low Sodium (2gm) Fluids: 1000ml (4 cups) Addtl Attending Provider Instructions: Transfer to [facility] Pending Studies at Discharge: No Stand-Alone Forms: My [facility] Skilled Items Patient informed of condition?: Yes DNR: No Discharge Level of Care: Other Communicable Disease: No Discharge Prognosis: Stable Lines: None and Peripheral IV Urinary Catheter: Yes Medications and DC Order Prescriptions: Continued atorvastatin 40 mg tablet 40 mg PO DAILY Qty: 90 3RF Rx Instructions: TAKE 1 TABLET BY MOUTH ONCE DAILY cyanocobalamin (vitamin B-12) 1,000 mcg tablet 1,000 mcg PO DAILY Qty: 90 ascorbate calcium (vitamin C) 500 mg tablet 500 mg PO DAILY cholecalciferol (vitamin D3) 25 mcg (1,000 unit) capsule 25 mcg PO DAILY ferrous sulfate [iron] 325 mg (65 mg iron) Tablet 325 mg PO BID multivitamin with minerals Tablet 1 tab PO DAILY Held carvedilol 25 mg tablet 25 mg PO BID Qty: 180 3RF Hold Instructions: Resume on 07/21/24. Rx Instructions: must administer with a meal/food Eliquis 5 mg tablet 5 mg PO BID Qty: 180 3RF Hold Instructions: Resume on 07/21/24. bumetanide 2 mg tablet 2 mg PO DAILY Qty: 60 2RF Hold Instructions: Resume on 07/21/24. Rx Instructions: Can increase to Bumex 2 mg BID as needed for worsening edema, SOB, weight gain. metolazone 2.5 mg tablet 2.5 mg PO DAILY Qty: 90 3RF Hold Instructions: Resume on 07/21/24. Entresto 49-51 mg tablet 0.5 tab PO BID Qty: 60 2RF Hold Instructions: Resume on 07/21/24. aspirin 81 mg Tablet,Delayed Release (Dr/Ec) 81 mg PO DAILY Hold Instructions: Resume on 07/21/24. Discharge Orders: Discharge Order (Routine); Ordered 07/20/24 Ordered By: Richy Ramirez Admission Data Admit Date/Time: 07/16/24 13:49 Attending Provider: Richy Ramirez Admit Provider: Brant Dailey Primary Care Provider: Demond Garcia Other Providers: Brant Dailey; Jl Guardado; Pete Huizar; Anatoliy Feliciano Other Interventions: Discharge Summary Assessment (RN) Last Done: 07/20/24 11:19 Hospital Stay Data Consultations 07/16/24 12:58 ED Decision to Admit Stat 07/16/24 12:59 Consult Cardiology Routine 07/16/24 13:13 Consult Nephrology Routine 07/17/24 09:44 Consult Vascular Surgery Routine Procedures Performed Operation Date: 07/18/24 11:30 Actual Procedures p Insertion Perm Catheter,Right Internal Jugular Approach,Ultrasound Localization of Right Internal Jugular Vein, Fluoroscopy for Positioning(Right) - Anatoliy Feliciano MD Diagnostic Imagining Performed 07/16/24 13:04 US Renal Bladder [US renal/blad retro comp] Stat 07/18/24 07:13 EV cvc insrt tunnel wo prt/slot attendant Routine US EV guide vascular access Routine Pending Results Patient Have Any Pending Studies at Discharge: No Discharge Instructions Given to Patient (Per Discharging Provider) Transfer to [facility] Total Time Total Time Spent Total Time Spent (In Minutes): 32 Coding Level of Care Code 59310 INP/OBS DISCH >30 MIN Diagnoses Cardiorenal syndrome I13.2 Heart failure presence: with heart failure 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
== END 2024-07-20 12:09 | disposition short-term general hospital (02) | DRG 291 ==
LOC: ED 11:26 → 2E 13:49 → SUATTDRO 13:49 → 2E 18:17